=== PATIENT | male | born 1945 | race Hispanic/Latino ===

== ENCOUNTER → 2018-06-01 | Outpatient (CLI) | payer OTHER ==
[~2018-06-01] MED LIST: Z.0.LISINOPRIL40 MG PO; Z.0.NORVASC2.5 MG PO; [UNRECOGNIZED DRUG - OTHER] PO
--- NOTE | 2018-06-01 15:05 | Diagnostic Imaging Report ---
History: Maxillary sinusitis Comparison studies: None Technique: Axial images were obtained through the paranasal sinuses. Coronal and sagittal images reconstructed from the axial data. Radiation dose: Total DLP: 295 mGy*cm. Estimated effective dose: DLP x 0.015 Intravenous contrast: None Findings: Right anterior complex: Frontal sinus: Clear aside from mild mucosal thickening in the anteroinferior sinus. Frontonasal recess: Patent. Anterior ethmoid air cells: Clear. Ostiomeatal unit: Maxillary ostium is narrowed by mucosal thickening but is patent. The ethmoid infundibulum and hiatus semilunaris are likewise patent. Maxillary sinus: Partially opacified with peripheral mucosal thickening, greatest along the alveolar recess. Left anterior complex: Frontal sinus: Clear. Frontonasal recess: Patent. Anterior ethmoid air cells: Mild mucosal thickening otherwise clear. Ostiomeatal unit: Maxillary ostium narrowed by mucosal thickening but patent. The ethmoid infundibulum and hiatus semilunaris are likely patent. Maxillary sinus: Peripheral mucosal thickening predominantly along the alveolar recess. Posterior complex: Left sphenoid sinus: Clear. Right sphenoid sinus: Contains small nonspecific frothy secretions or debris. Clear. Sphenoethmoidal recesses: Clear. Posterior ethmoid air cells: Clear. Other: Nasal vestibule and cavity: Patent Nasal septum: Deviated to the patient's right. Agger Nasi: Clear bilaterally. Turbinates: Non-aerated bilaterally. Leena cells: None Lamina papyracea: Intact. Cribriform plates: Approximate 3 to 4 mm on the right and 4 to 5 mm on the left below the level of the fovea ethmoidalis. Olfactory recesses: Clear Optic canals: Not dehiscent [place] cells: None Internal carotid canals: Not dehiscent. Both carotid canal slightly bulge into the left sphenoid sinus with air covered by thin bony plates. Sphenoid sinuses: Asymmetric with dominant left sinus. The lateral recesses are not aerated. The septum inserts to the right of midline and inserts along the anterior wall the right cavernous carotid canal. Orbits: No abnormalities. Bones: No fractures or lytic or blastic lesions. Temporal bones: No gross abnormalities. Dentition: Edentulous maxilla. Multiple absent mandibular teeth with mandibular dental caries Included brain: Mild generalized cerebral volume loss with nonspecific periventricular hypodensities which may reflect chronic microvascular ischemic changes. Scattered calcified atherosclerosis in the carotid siphons, and dominant right intradural vertebral artery and in the basilar artery with mild vertebrobasilar dolichoectasia. Incidental findings: Lens replacements for previous cataract surgery. Calcified atherosclerosis in the proximal left cervical internal carotid artery. IMPRESSION: 1. Nonspecific inflammatory mucosal thickening in the maxillary sinuses, right inferior frontal sinus and left anterior ethmoids with small nonspecific debris or secretions in the right sphenoid sinus. 2. Sinus drainage pathways are patent. 3. Rightward nasal septal deviation. Signed by: Dr. Justice Rodriguez M.D. on 06/01/2018 3:02 PM
== END ==
LOC: CT 08:47
PROVIDERS: ATTEND Nurse Practitioner Adult Health
DX: J32.0 Chronic maxillary sinusitis (principal); J34.2 Deviated nasal septum
CPT/HCPCS: 70486

== ENCOUNTER 2019-03-21 10:39 | Outpatient (RCR) | payer MEDICARE, OTHER | END 2019-03-26 | LOC: PT 10:39 | PROVIDERS: ATTEND Internal Medicine | DX: I69.898 Other sequelae of other cerebrovascular disease (principal); R26.89 Other abnormalities of gait and mobility ==

== ENCOUNTER 2020-01-18 19:07 | Inpatient (IN) | payer MEDICARE, OTHER ==
[~2020-01-18] VITALS: Ht 170.2 cm; Wt 81.6 kg
[2020-01-18] MEDS ORDERED: SODIUM CHLORIDE 0.9% 1000ML 1,000 ML IV STA (19:09)
[2020-01-18 19:38] LABS: BASOPHILS # (AUTO) 0.1 (0.0-0.1); BASOPHILS % 1.3 % (0.0-1.0); EOSINOPHILS # (AUTO) 0.1 (0.0-0.4); EOSINOPHILS % 2.5 % (0.0-6.0); HEMATOCRIT 35.8 % (38.2-49.6); HEMOGLOBIN 12.5 g/dL (14.0-18.0); LYMPHOCYTES # (AUTO) 1.2 (1.0-3.2); LYMPHOCYTES % 23.2 % (18.0-39.1); MEAN CORPUSCULAR HEMOGLOBIN 30.6 pg (28-32); MEAN CORPUSCULAR HGB CONC 34.9 g/dL (31-35); MEAN CORPUSCULAR VOLUME 87.7 fL (81-99); MONOCYTES # (AUTO) 0.6 (0.2-0.8); MONOCYTES % 11.1 % (4.4-11.3); NEUTROPHILS # (AUTO) 3.2 (2.1-6.9); NEUTROPHILS % 61.7 % (38.7-80.0); PLATELET COUNT 234 x10e3/uL (140-360); RED BLOOD COUNT 4.08 x10e6/uL (4.3-5.7); RED CELL DISTRIBUTION WIDTH 12.1 % (11.7-14.4)
[2020-01-18 19:48] LABS: CLARITY,URINE SL CLOUDY (CLEAR); COLOR,URINE YELLOW (YELLOW)
[2020-01-18 19:49] LABS: BILIRUBIN,URINE NEGATIVE (NEGATIVE); KETONES,URINE NEGATIVE (NEGATIVE); LEUKOCYTE ESTERASE ,URINE NEGATIVE (NEGATIVE); NITRITE,URINE NEGATIVE (NEGATIVE); PROTEIN,URINE DIPSTICK >=300 (NEGATIVE); URINE UROBILINOGEN 0.2 mg/dL (0.2 - 1)
[2020-01-18 19:57] LABS: ALANINE AMINOTRANSFERASE 9 IU/L (0-55); ALBUMIN 4.4 g/dL (3.5-5.0); ALBUMIN/GLOBULIN RATIO 1.5 (0.8-2.0); ALKALINE PHOSPHATASE 68 IU/L (40-150); ANION GAP 12.5 mmol/L (8-16); BLOOD UREA NITROGEN 9 mg/dL (7-26); BUN/CREATININE RATIO 12 (6-25); CALCIUM 8.3 mg/dL (8.4-10.2); CARBON DIOXIDE 22 mmol/L (22-29); CHLORIDE 92 mmol/L (98-107); CREATINE KINASE 270 IU/L (30-200); CREATININE, SERUM 0.73 mg/dL (0.72-1.25); EST GLOMERULAR FILTRATION RATE > 60 ML/MIN (60-); GLUCOSE 102 mg/dL (74-118); POTASSIUM 4.5 mmol/L (3.5-5.1); SODIUM 122 mmol/L (136-145)
[2020-01-18 20:00] LABS: BACTERIA,URINE FEW /HPF; WBC,URINE (MAN) 0-5 /HPF (0-5)
[2020-01-18] MEDS ORDERED: AZITHROMYCIN 500MG/NS 250 ML 250 ML IV SCH (22:00)
[2020-01-18] MEDS ORDERED: HYDRALAZINE HCL 20 MG/ML VIAL IV PRN (22:00)
[2020-01-18 22:20] VITALS: BP 183/90
[2020-01-18] MEDS: SODIUM CHLORIDE 0.9% 1000ML 1,000 ML IV SCH (22:36)
[2020-01-18 23:37] VITALS: BP 183/90
[2020-01-19] VITALS (8 sets, daily range): BP systolic 108–151; BP diastolic 50–79
[2020-01-19] MEDS: SODIUM CHLORIDE 0.9% 1000ML 1,000 ML IV SCH ×3 (04:40→20:44)
[2020-01-19 04:49] LABS: BASOPHILS # (AUTO) 0.1 (0.0-0.1); BASOPHILS % 1.2 % (0.0-1.0); EOSINOPHILS # (AUTO) 0.1 (0.0-0.4); HEMATOCRIT 33.6 % (38.2-49.6); HEMOGLOBIN 11.7 g/dL (14.0-18.0); LYMPHOCYTES # (AUTO) 1.3 (1.0-3.2); LYMPHOCYTES % 24.9 % (18.0-39.1); MEAN CORPUSCULAR HEMOGLOBIN 31.2 pg (28-32); MEAN CORPUSCULAR HGB CONC 34.8 g/dL (31-35); MEAN CORPUSCULAR VOLUME 89.6 fL (81-99); MONOCYTES # (AUTO) 0.7 (0.2-0.8); MONOCYTES % 12.8 % (4.4-11.3); NEUTROPHILS % 58.7 % (38.7-80.0); PLATELET COUNT 212 x10e3/uL (140-360); RED BLOOD COUNT 3.75 x10e6/uL (4.3-5.7); RED CELL DISTRIBUTION WIDTH 12.1 % (11.7-14.4)
[2020-01-19 05:08] LABS: ALANINE AMINOTRANSFERASE 7 IU/L (0-55); ALBUMIN 3.7 g/dL (3.5-5.0); ALBUMIN/GLOBULIN RATIO 1.5 (0.8-2.0); ALKALINE PHOSPHATASE 57 IU/L (40-150); BLOOD UREA NITROGEN 6 mg/dL (7-26); BUN/CREATININE RATIO 10 (6-25); CALCIUM 7.5 mg/dL (8.4-10.2); CARBON DIOXIDE 21 mmol/L (22-29); CHLORIDE 97 mmol/L (98-107); CREATININE, SERUM 0.62 mg/dL (0.72-1.25); EST GLOMERULAR FILTRATION RATE > 60 ML/MIN (60-); GLUCOSE 90 mg/dL (74-118); SODIUM 126 mmol/L (136-145)
[2020-01-19 05:29] LABS: CREATINE KINASE MB 4.7 ng/mL (0-5.0)
[2020-01-19 10:42] LABS: BLOOD UREA NITROGEN 7 mg/dL (7-26); GLUCOSE 86 mg/dL (74-118); OSMOLALITY,SERUM 251 mOsm/kg (278-305); SODIUM 126 mmol/L (136-145)
[2020-01-19] MEDS: CEFTRIAXONE SOD 1 GM/NS 50 ML 50 ML IV SCH (12:43)
[2020-01-19] MEDS: LISINOPRIL 20 MG TAB PO SCH ×2 (12:44→20:44)
[2020-01-19] MEDS: AMLODIPINE BESYLATE 5 MG TAB PO SCH (12:44)
[2020-01-19 13:03] LABS: CREATINE KINASE MB 4.1 ng/mL (0-5.0)
[2020-01-19] MEDS: AZITHROMYCIN 250MG/NS 100 ML 100 ML IV SCH (20:44)
[2020-01-20] VITALS (8 sets, daily range): BP systolic 116–178; BP diastolic 58–84
[2020-01-20 04:50] LABS: BASOPHILS # (AUTO) 0.1 (0.0-0.1); BASOPHILS % 1.5 % (0.0-1.0); EOSINOPHILS # (AUTO) 0.2 (0.0-0.4); HEMATOCRIT 33.9 % (38.2-49.6); HEMOGLOBIN 11.7 g/dL (14.0-18.0); LYMPHOCYTES # (AUTO) 1.3 (1.0-3.2); LYMPHOCYTES % 26.5 % (18.0-39.1); MEAN CORPUSCULAR HEMOGLOBIN 31.7 pg (28-32); MEAN CORPUSCULAR HGB CONC 34.5 g/dL (31-35); MEAN CORPUSCULAR VOLUME 91.9 fL (81-99); MONOCYTES # (AUTO) 0.6 (0.2-0.8); MONOCYTES % 13.4 % (4.4-11.3); NEUTROPHILS # (AUTO) 2.6 (2.1-6.9); NEUTROPHILS % 54.2 % (38.7-80.0); PLATELET COUNT 205 x10e3/uL (140-360); RED BLOOD COUNT 3.69 x10e6/uL (4.3-5.7); RED CELL DISTRIBUTION WIDTH 12.7 % (11.7-14.4)
[2020-01-20 05:17] LABS: ANION GAP 13.1 mmol/L (8-16); BLOOD UREA NITROGEN 6 mg/dL (7-26); BUN/CREATININE RATIO 9 (6-25); CALCIUM 7.7 mg/dL (8.4-10.2); CARBON DIOXIDE 21 mmol/L (22-29); CHLORIDE 104 mmol/L (98-107); CREATININE, SERUM 0.65 mg/dL (0.72-1.25); EST GLOMERULAR FILTRATION RATE > 60 ML/MIN (60-); GLUCOSE 81 mg/dL (74-118); POTASSIUM 4.1 mmol/L (3.5-5.1); SODIUM 134 mmol/L (136-145)
[2020-01-20] MEDS: AMLODIPINE BESYLATE 5 MG TAB PO SCH (08:43)
[2020-01-20] MEDS: LISINOPRIL 20 MG TAB PO SCH ×2 (08:43→20:31)
[2020-01-20] MEDS ORDERED: ALBUTEROL/IPRATROPIUM 3 ML NEB NEB PRN (10:00)
[2020-01-20] MEDS: CEFTRIAXONE SOD 1 GM/NS 50 ML 50 ML IV SCH (11:03)
[2020-01-20] MEDS: METHYLPREDNISOLONE SOD SUCC 40 MG/ML VIAL 1ML IV SCH ×2 (11:03→20:30)
[2020-01-20] MEDS: ALBUTEROL/IPRATROPIUM 3 ML NEB NEB SCH ×2 (13:30→20:25)
[2020-01-20 16:34] LABS: FREE THYROXINE INDEX 1.7866 (1.4-3.8); THYROID STIMULATING HORMONE 0.399 uIU/mL (0.350-4.940)
[2020-01-20] MEDS: SODIUM CHLORIDE 0.9% 1000ML 1,000 ML IV SCH (17:00)
[2020-01-20] MEDS: AZITHROMYCIN 250MG/NS 100 ML 100 ML IV SCH (20:30)
[2020-01-21] VITALS (8 sets, daily range): BP systolic 147–182; BP diastolic 63–82
[2020-01-21] MEDS: ALBUTEROL/IPRATROPIUM 3 ML NEB NEB SCH ×4 (01:20→18:57)
[2020-01-21] MEDS: LISINOPRIL 20 MG TAB PO SCH ×2 (08:05→20:52)
[2020-01-21] MEDS: AMLODIPINE BESYLATE 5 MG TAB PO SCH (08:05)
[2020-01-21] MEDS: SODIUM CHLORIDE 0.9% 1000ML 1,000 ML IV SCH (08:05)
[2020-01-21] MEDS: METHYLPREDNISOLONE SOD SUCC 40 MG/ML VIAL 1ML IV SCH ×2 (08:05→20:52)
[2020-01-21] MEDS: CEFTRIAXONE SOD 1 GM/NS 50 ML 50 ML IV SCH (12:15)
[2020-01-21] MEDS ORDERED: NIFEDIPINE CR 30 MG TAB PO ONE (12:30)
[2020-01-21] MEDS: ACETAMINOPHEN 325 MG TAB PO PRN (18:36)
[2020-01-21] MEDS: AZITHROMYCIN 250MG/NS 100 ML 100 ML IV SCH (20:51)
[2020-01-22] VITALS (8 sets, daily range): BP systolic 126–161; BP diastolic 58–77
[2020-01-22] MEDS: ALBUTEROL/IPRATROPIUM 3 ML NEB NEB SCH ×4 (01:00→18:45)
[2020-01-22 05:57] LABS: BASOPHILS % 0.4 % (0.0-1.0); HEMATOCRIT 35.9 % (38.2-49.6); HEMOGLOBIN 12.7 g/dL (14.0-18.0); LYMPHOCYTES # (AUTO) 0.6 (1.0-3.2); LYMPHOCYTES % 12.6 % (18.0-39.1); MEAN CORPUSCULAR HEMOGLOBIN 32.6 pg (28-32); MEAN CORPUSCULAR HGB CONC 35.4 g/dL (31-35); MEAN CORPUSCULAR VOLUME 92.3 fL (81-99); MONOCYTES # (AUTO) 0.2 (0.2-0.8); MONOCYTES % 3.5 % (4.4-11.3); NEUTROPHILS % 83.3 % (38.7-80.0); PLATELET COUNT 230 x10e3/uL (140-360); RED BLOOD COUNT 3.89 x10e6/uL (4.3-5.7); RED CELL DISTRIBUTION WIDTH 12.8 % (11.7-14.4)
[2020-01-22] MEDS: NIFEDIPINE CR 30 MG TAB PO SCH ×3 (06:00→09:17)
[2020-01-22 06:28] LABS: ANION GAP 11.5 mmol/L (8-16); BLOOD UREA NITROGEN 9 mg/dL (7-26); BUN/CREATININE RATIO 13 (6-25); CALCIUM 8.9 mg/dL (8.4-10.2); CARBON DIOXIDE 26 mmol/L (22-29); CHLORIDE 101 mmol/L (98-107); CREATININE, SERUM 0.69 mg/dL (0.72-1.25); EST GLOMERULAR FILTRATION RATE > 60 ML/MIN (60-); GLUCOSE 121 mg/dL (74-118); POTASSIUM 4.5 mmol/L (3.5-5.1); SODIUM 134 mmol/L (136-145)
[2020-01-22] MEDS: METHYLPREDNISOLONE SOD SUCC 40 MG/ML VIAL 1ML IV SCH (09:18)
[2020-01-22] MEDS: LISINOPRIL 20 MG TAB PO SCH ×2 (10:40→20:01)
[2020-01-22] MEDS: CEFTRIAXONE SOD 1 GM/NS 50 ML 50 ML IV SCH (10:47)
[2020-01-22] MEDS: ACETAMINOPHEN 325 MG TAB PO PRN (18:03)
[2020-01-22] MEDS: AZITHROMYCIN 250MG/NS 100 ML 100 ML IV SCH (19:57)
[2020-01-23 00:09] VITALS: BP 155/70
[2020-01-23] MEDS: ALBUTEROL/IPRATROPIUM 3 ML NEB NEB SCH ×2 (01:00→08:50)
[2020-01-23 04:10] VITALS: BP 154/72
[2020-01-23 05:37] LABS: ANION GAP 11.7 mmol/L (8-16); BLOOD UREA NITROGEN 11 mg/dL (7-26); BUN/CREATININE RATIO 16 (6-25); CALCIUM 8.8 mg/dL (8.4-10.2); CARBON DIOXIDE 26 mmol/L (22-29); CHLORIDE 98 mmol/L (98-107); EST GLOMERULAR FILTRATION RATE > 60 ML/MIN (60-); GLUCOSE 92 mg/dL (74-118); POTASSIUM 3.7 mmol/L (3.5-5.1); SODIUM 132 mmol/L (136-145)
[2020-01-23 08:00] VITALS: BP 158/93
[2020-01-23] MEDS: LISINOPRIL 20 MG TAB PO SCH (08:17)
[2020-01-23] MEDS: NIFEDIPINE CR 30 MG TAB PO SCH (08:18)
[2020-01-23 09:00] VITALS: BP 158/93
[2020-01-23] MEDS ORDERED: DEMECLOCYCLINE HCL 300 MG TAB PO SCH (09:00)
[2020-02-17] MEDS ORDERED: NIFEDIPINE ER30 M1 PO (17:02)
[2020-02-17] MEDS ORDERED: RISPERDAL0.5 MG PO (17:02)
[2020-02-17] MEDS ORDERED: LOPRESSOR25 MG PO (17:02)
[2020-02-17] MEDS ORDERED: COLACE100 MG PO (17:02)
[2020-02-17] MEDS ORDERED: ACETAMINOPHEN325 M1 PO (17:02)
[2020-02-17] MEDS ORDERED: Demeclocycline Hcl PO (17:02)
[2020-02-17] MEDS ORDERED: FLOMAX0.4 MG PO (17:02)
== END 2020-01-23 10:55 | disposition home health service (06) | DRG 643 ==
LOC: ER 19:41 → ERHOLD 20:45 → IMCU 22:00
PROVIDERS: ADMIT Internal Medicine; ATTEND Internal Medicine
DX: E22.2 Syndrome of inappropriate secretion of antidiuretic hormone (principal); J18.9 Pneumonia, unspecified organism; I10 Essential (primary) hypertension; S06.0X0A Concussion without loss of consciousness, initial encounter; M25.531 Pain in right wrist; M25.562 Pain in left knee; M25.561 Pain in right knee; W01.0XXA Fall on same level from slipping, tripping and stumbling without subsequent striking against object, initial encounter; Y93.01 Activity, walking, marching and hiking; S00.81XA Abrasion of other part of head, initial encounter; S00.83XA Contusion of other part of head, initial encounter; F01.50 Vascular dementia, unspecified severity, without behavioral disturbance, psychotic disturbance, mood disturbance, and anxiety; J84.10 Pulmonary fibrosis, unspecified
CPT/HCPCS: 36415; 70450; 70486; 71046; 71250; 72125; 80048; 80053; 80320; 81001; 82550; 82553; 82607; 82746; 82947; 83880; 83935; 84295; 84300; 84436; 84443; 84479; 84484; 84520; 85025; 86001; 86003; 86039; 86592; 93005; 94640; 97139; 99285; J0360; J0456; J0696; J2920; J7030; U0002

== ENCOUNTER 2020-02-11 20:37 | Inpatient (IN) | payer MEDICARE, OTHER ==
[~2020-02-11] VITALS: Ht 170.2 cm; Wt 71.7 kg
--- OUTSIDE RECORDS SUMMARY | 2020-02-11 20:59 | XMS REPORT | Continuity of Care Document ---
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 01/27/2019 [facility] UNK Active 0 01/06/2013 [facility] OTHER Active 05/24/2011 [facility] Hearing loss (finding) [facility], systemic arterial (disorder) [facility] Medications Medication Details Route Status Patient Instructions Ordering Provider Order Date Source Naprosyn 500 mg oral tablet 50 0 mg, 1 tab, PO, BID, 14 tab, Substitution Allowed, TAB PO Active Wilfred howe 05/24/2011 [facility] acetaminophen-hydrocodone 500 mg-5 mg oral tablet 1-2 tab, PO, Q4-6H, PRN, 15 tab, Pain, Substitution Allowed, [facility] Toradol 30 mg/mL injectable solution 60 mg, 2 mL, Route: IM, Drug form: INJ, ONCE, Start date: 05/24/11 8:34:00, Stop date: 05/24/11 8:34:00 IM No [facility] acetaminophen-hydrocodone 325 mg-5 mg oral tablet 1 tab, Route: PO, Drug Form: TAB, ONCE, STAT, Start date: 05/24/11 8:34:00, Stop date: 05/24/11 8:34:00 PO [facility] Allergies, Adverse Reactions, Alerts Substance Category Reaction Severity Reaction type Status Date Reported Comments Source No Known Medication Allergies Assertion Drug aller gy [facility] Immunizations No Data Provided for This Section Results No Data Provided for This Section Pathology Reports No Data Provided for This Section Diagnostic Reports Report Value Date Source Sinus wo contrast CT Radiation Dose CTDIVOL = 0 (mGy): DLP = 504 (mGy-cm) PROCEDURE INFORMATION: Exam: CT Maxillofacial Without Contrast, Sinus Exam date and time: 11/10/2019 2:48 PM Age: 74 years old Clinical indication: /j32.4 sinus problems TECHNIQUE: Imaging protocol: CT Maxillofacial without contrast. Focus on the sinuses. Radiation optimization: All CT scans at this facility use at least one of these dose optimization techniques: automated exposure control; mA and/or kV adjustment per patient size (includes targeted exams where dose is matched to clinical indication); or iterative reconstruction. COMPARISON: No relevant prior studies available. RADIATION DOSE METRICS: Total DLP (mGy-cm): 504 FINDINGS: Frontal sinuses: There is minimal mucosal thickening right frontal sinus. Ethmoid air cells: There is minimal mucosal thickening in the solitary right mid ethmoid air cell and within the right frontal sinus. Sphenoid sinuses: Normal. No air-fluid levels. Maxillary sinuses: There is minimal attenuation bilateral maxillary ostium. Orbits: Orbits are normal. Globes are unremarkable. Auditory system: There is normal pneumatization middle ear cavity, antrum and mastoid air cells. Nasopharynx: The nasopharynx is normal. Nasal cavity/Septum: The nasal septum is deviated to the right. There is prominence of the mucosa of the middle and inferior nasal turbinates without nasal polyposis. Soft tissues: Unremarkable. Bones/joints: The study is is performed in a bone algorithm. IMPRESSION: There is minimal mucosal thickening in the right frontal sinus in the solitary right mid ethmoid air cell. The nasal septum is deviated to the right. There is prominence of the mucosa of the middle and inferior nasal turbinates without nasal polyposis. Kvng Hall MD On 11/10/2019 17:12:51; [id number] 11/10/2019 [facility] Spine lumbar 2 or 3 views DX E xam: Spine lumbar 2 or 3 views DX Reason for Exam: - M47.816 Spondylosis without myelopathy or radiculopathy, lumbar region Comparison Exam: None Discussion: 5 non rib-bearing lumbar vertebral taryn s are seen. Vertebral body heights are maintained. Grade 1 retrolisthesis seen of L2 on L3. Moderate degenerative changes seen at the L2/L3 and L5/S1 levels. No suspicious osteoblastic or osteolytic lesions. Large amount of atherosclerotic plaque seen within the abdominal aorta . Note that a lumbar spine x-ray cannot rule out ligamentous injuries or spinal cord abnormalities. No dilated loops of bowel within the visualized portions of the abdomen and pelvis. Impression: 1. Grade 1 retrolisthesis seen of L2 on L3. Moderate degenerative changes seen at the L2/L3 and L5/S1 levels. 01/27/2019 [facility] Consultation Notes No Data Provided for This Section Discharge Summaries No Data Provided for This Section History and Physicals No Data Provided for This Section Vital Signs Vital Sign Value Date Comments Source Heart Rate 89 05/24/2011 [facility] Temperature Oral (F) 98.3 F 05/24/2011 [facility] Respitory Rate 20 05/24/2011 [facility] Diastolic (mm Hg) 70 05/24/2011 [facility] Systolic (mm Hg) 136 05/24/2011 [facility] Heart Rate 88 05/24/2011 [facility] Diastolic (mm Hg) 71 05/24/2011 [facility] Temperature Oral (F) 98.1 F 05/24/2011 [facility] Respitory Rate 18 05/24/2011 [facility] Systolic (mm Hg) 138 05/24/2011 [facility] Weight 81.818 05/24/2011 [facility] Height 170.18 cm 05/24/2011 [facility] Encounters Location Location Details Encounter Type Encounter Number Reason For Visit Attending Provider ADM Date DC Date Status Source [facility] Emergency [id number] JASMINA NRIAGU 05/24/2011 05/24/2011 [facility]charged [facility] [place] [facility] [id number] Jason Parikh [id number] Rolando Leiva 11/10/2019 11/11/2019 [facility] LUIS [id number] BECKIEK TERENCE HALE Active [facility] Procedures Procedure Code Date Perfomer Comments [id number] No Data Provided for This Section Plan of Care No Data Provided for This Section Social History Social History Date Source Social History TypeResponse Alcohol Past, Previous treatment: None. Alcohol use interferes with work or home: No. Drinks more than intended: No. Others hurt by drinking: No. Ready to change: No. Household alcohol concerns: No. Substance Abuse Previous Treatment: None. IV drug use: No. Drug use interferes with work/home: No. Ready to change: No. Household substance abuse concerns: No. Cessation Education Provided: No. Smoking Status Former smoker; Exposure to Tobacco Smoke None; Cigarette Smoking Last 365 Days No; Reg Smoking Cessation Counseling No entered on: 04/04/13 04/04/2013 [facility] Social History TypeResponse Alcohol Past, Previous treatment: None. Alcohol use interferes with work or home: No. Drinks more than intended: No. Others hurt by drinking: No. Ready to change: No. Household alcohol concerns: No. Substance Abuse Previous Treatment: None. IV drug use: No. Drug use interferes with work/home: No. Ready to change: No. Household substance abuse concerns: No. Cessation Education Provided: No. Smoking Status Former smoker; Exposure to Tobacco Smoke None; Cigarette Smoking Last 365 Days No; Reg Smoking Cessation Counseling No entered on: 04/04/13 04/04/2013 [facility] Family History No Data Provided for This Section Advance Directives No Data Provided for This Section Functional Status No Data Provided for This Section
--- OUTSIDE RECORDS SUMMARY | 2020-02-11 20:59 | XMS REPORT | Continuity of Care Document ---
Author Author [facility] t Organization [facility] Address 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 Active 11/07/2019 [facility] tive 2019-11-07 00:00:00 2019-11-10 14:38:00 Deandra Pineda 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 Active 01/27/2019 [facility] Active 2019-01-27 00:01:00 2019-01-27 10:28:00 Warner Pineda UNK UNK Active 01/06/2013 [facility] Diagnosis Active 2013-01-06 00:00:00 2013-04-04 09:03:00 M kandijuanbrandin Edwin OTHER OTHE R Active 05/24/2011 [facility] Active 2011-05-24 00:00:00 2011-05-24 09:01:00 [facility] Facial laceration Problem Active [facility] Hyponatremia Problem Active [facility] Weakness Problem Active [facility] Pain in both knees Problem Active [facility] Right wrist pain Problem Active [facility] Hearing loss (finding) Hear ing loss (finding) Active Problem 11/12/2019 [facility] 2019-11-12 22:48:33 Warner Pineda Hypertensive disorder, systemic arterial (disorder) Hypertensive disorder, systemic arterial (disorder) Active [facility]12[facility]2019 [facility] 2019-11-12 22:48:33 Warner Pineda Allergies, Adverse Reactions, Alerts Allergy Name Allergy Type Status Severity Reaction(s) Onset Date Inacti ve Date Treating Clinician Comments Source No Known Allergies DA Active U 2020-01-30 00:00:00 [facility] No Known Allergies DA Active U 2019-06-06 00:00:00 [facility] No Known Allergies DA Active U 2015-02-26 00:00:00 [facility] No Known Medication Allergies No Known Medication Allergies Active Warner Pineda Social History Social Habit Start Date Stop Date Quantity Comments Source Social History 2013-04-04 15:43:17 2013-04-04 15:43:17 Warner Pineda Sex Ass[birth year] At 1945 00:00:00 1945 00[birth year]00:00 Male [facility] Medications Ordered Medication Name Filled Medication Name Start Date Stop Da te Current Medication? Ordering Clinician Indication Dosage Frequency Signature (SIG) Comments Components Source Naprosyn 500 mg oral tablet 2011-05-24 14:37:17 Yes Becki Dumaszik 500 mg, 1 tab, PO, BID, 14 tab, Substitution Allowed, TAB Warner Pineda acetaminophen-hydrocodone 500 mg-5 mg oral tablet 14:37:16 Yes Becki Dumasbrandenk 1-2 tab, PO , Q4-6H, PRN, 15 tab, Pain, Substitution Allowed, Maintenance Warner Pineda Toradol 30 mg/mL injectable solution 2011-05-24 14:34:00 No Becki Dumasbrandenmelissa 60 mg, 2 mL, Rou te: IM, Drug form: INJ, ONCE, Start date: 05/24/11 8:34:00, Stop date: 05/24/11 8:34:00 Duran Pineda acetaminophen-hydrocodone 325 mg-5 mg oral tablet 14:34:00 No Becki Dumasgita 1 tab, Rout e: PO, Drug Form: TAB, ONCE, STAT, Start date: 05/24/11 8:34:00, Stop date: 05/24/11 8:34:00 [facility] Lisin[facility]ril Lisinopril Yes 1 Daily [facility] Amlodipine Besylate (Norvasc) 2.5 Mg TABLET Amlodipine Besylate (Norvasc) 2.5 Mg TABLET 2020-01-23 00:00:00 No 1 Daily [facility] Cefprozil Cefprozil 2020-01-23 00:00:00 No 1 Twice Daily [facility] Vital Signs Vital Name Observation Time Observation Value Comments Source Body Temperature 2020-01-23 09:00:00 98.1 [degF] [facility] Weight 2020-01-18 19:25:00 180 [lb_av] [facility] BMI (Body Mass Index) 2020-01-18 19:25:00 28.2 kg/m2 [facility] Heart Rate 2011-05-24 15:28:00 Warner Pineda Temperature Oral (F) 2011-05-24 15:28:00 98.3 F Warner Pineda Respitory Rate 2011-05-24 15:28:00 [facility] Diastolic (mm Hg) 2011-05-24 15:28:00 Mem [facility] [place] Systolic (mm Hg) 2011-05-24 15:28:00 Kyle rial [facility] Heart Rate 2011-05-24 14:17:00 [facility] [place] Diastolic (mm Hg) 2011-05-24 14:17:00 Mem o[facility] Temperature Oral (F) 2011-05-24 14:17:00 98.1 F [facility] Respitory Rate 2011-05-24 14:17:00 [facility] Systolic (mm Hg) 2011-05-24 14:17:00 Kyle [facility] Weight 2011-05-24 14:16:00 [facility] Height 2011-05-24 14:16:00 170.18 cm [facility] Procedures Procedure Date / Time Performed Performing Clinician [facility] e Computed tomography of brain without radiopaque contrast 2019-12 00:00:00 [facility] Computed tomography of chest without contrast 2020-01-19 00:00:0 0 [facility] Computed tomography of brain without radiopaque contrast 2019-12 00:00:00 [facility] CT maxillofacial area wo contrast 2020-01-18 00:00:00 [facility] Computed tomography of cervical spine without contrast 2019-12-28 3 00:00:00 [facility] X-ray of chest, two views 2020-01-18 00:00:00 [facility] Cataract surgery [facility] Plan of Care Planned Activity Planned Date Details Comments Source Instructions Pneumonia - Bacterial [facility] Encounters Start Date/Time End Date/Time Encounter Type Admission Type [facility] Care Department Encounter ID Source 2019-11-10 14:28:00 2019-11-10 23:59:00 Outpatient Rolando Leiva [facility] [id number] 2019-11-10 14:28:00 2019-11-10 14:28:00 Outpatient [id number] 2019-03-21 10:39:00 2019-03-26 23:59:00 Discharged Recurring [facility] [id number] [facility] 2019-01-27 10:09:00 2019-01-27 23:59:00 Outpatient Jason Parikh [facility] [id number] 2018-06-01 08:47:00 2018-06-01 08:47:00 Registered Clinic 3 ARIELLE TYLER [facility] [id number] [facility] Results Test Description Test Time Test Comments Results Result Comments Source HEPATIC FUNCTION PANEL 2020-02-05 02:06:00 Test Item TOTAL PROTEIN (test code = PROT) 6.7 gram/dL 6.4-8.2 N ALBUMIN (test code = ALB) 3.6 g/dL 3.4-5.0 N GLOBULIN (test code = GLOB) 3.1 gram/dL 2.7-4.2 N ALBUMIN/GLOBULIN RATIO (test code = A/G) 1.2 0.75-1.50 N BILIRUBIN TOTAL (test code = BILT) 0.40 mg/dL 0.0-1.0 N BILIRUBIN DIRECT (test code = BILD) 0.11 mg/dL 0.0-0.20 N SGOT/AST (test code = AST) 20 IUnit/L 15-37 N SGPT/ALT (test code = ALT) 17 IUnit/L 12-78 N ALKALINE PHOSPHATASE TOTAL (test code = ALKP) 61 IUnit/L 45-117 N Note change in reference range due to change in reagent. VITAMIN [id number] 02:06:00* Test Item Value Reference Range Interpretation Comments VITAMIN B12 (test code = VITB12) 546 pg/mL 193-986 N FOLIC [id number] 02:06:00* Test Item Value Reference Range Interpretation Comments FOLIC ACID (test code = FOL) 17.7 ng/mL 3.10-17.50 H THYROID STIMULATING [id number] 02:06:00* Test Item Value Reference Range Interpretation Comments THYROID STIMULATING HORMONE (test code = TSH) 0.362 uIU/mL 0.36-3.7 4 N TSH REFERENCE RANGES: EUTHYROID: 0.35 - 4.3 mIU/mL HYPO : > 5.5 mIU/mL HYPER : < 0.35 mIU/mL VITAMIN B6/[id number] 02:06:00* Test Item Value Reference Range Interpretation Comments VITAMIN B6/PYRIDOXINE (test code = VITB6) 11.3 ug/L 5.3-46.7 Performed At: [facility] [id number] Santizo MD Ph:[phone] VIT B1 WHOLE [id number] 02:06:00* Test Item Value Reference Range Interpretation Comments VIT B1 WHOLE BLOOD (test code = OVUT3XJ) 74.5 nmol/L 66.5-200.0 Performed At: [facility] [id number] Santizo MD Ph:[phone] HEPATIC FUNCTION [id number] 21:06:00* Test Item Value Reference Range Interpretation Comments TOTAL PROTEIN (test code = PROT) 6.7 gram/dL 6.4-8.2 N ALBUMIN (test code = ALB) 3.6 g/dL 3.4-5.0 N GLOBULIN (test code = GLOB) 3.1 gram/dL 2.7-4.2 N ALBUMIN/GLOBULIN RATIO (test code = A/G) 1.2 0.75-1.50 N BILIRUBIN TOTAL (test code = BILT) 0.40 mg/dL 0.0-1.0 N BILIRUBIN DIRECT (test code = BILD) 0.11 mg/dL 0.0-0.20 N SGOT/AST (test code = AST) 20 IUnit/L 15-37 N SGPT/ALT (test code = ALT) 17 IUnit/L 12-78 N ALKALINE PHOSPHATASE TOTAL (test code = ALKP) 61 IUnit/L 45-117 N Note change in reference range due to change in reagent. VITAMIN [id number] 21:06:00* Test Item Value Reference Range Interpretation Comments VITAMIN B12 (test code = VITB12) 546 pg/mL 193-986 N FOLIC [id number] 21:06:00* Test Item Value Reference Range Interpretation Comments FOLIC ACID (test code = FOL) 17.7 ng/mL 3.10-17.50 H THYROID STIMULATING [id number] 21:06:00* Test Item Value Reference Range Interpretation Comments THYROID STIMULATING HORMONE (test code = TSH) 0.362 uIU/mL 0.36-3.7 4 N TSH REFERENCE RANGES: EUTHYROID: 0.35 - 4.3 mIU/mL HYPO : > 5.5 mIU/mL HYPER : < 0.35 mIU/mL VITAMIN B6/[id number] 21:06:00* Test Item Value Reference Range Interpretation Comments VITAMIN B6/PYRIDOXINE (test code = VITB6) 11.3 ug/L 5.3-46.7 Performed At: [facility] [id number] Sanjai MD Ph:[phone] VIT B1 WHOLE [id number] 21:06:00* Test Item Value Reference Range Interpretation Comments VIT B1 WHOLE BLOOD (test code = UHAN5QI) nmol/L 87-280 BASIC METABOLIC [id number] 07:38:00* Test Item Value Reference Range Interpretation Comments SODIUM (test code = NA) 136 mmol/L 136-145 N POTASSIUM (test code = K) 4.3 mmol/L 3.5-5.1 N CHLORIDE (test code = CL) 104.0 mmol/L 98-107 N CARBON DIOXIDE (test code = CO2) 25.0 mmol/L 21-32 N ANION GAP (test code = GAP) 11.3 10-20 N GLUCOSE (test code = GLU) 91 mg/dL 74-106 N BLOOD UREA NITROGEN (test code = BUN) 8 mg/dL 7-18 N GLOMERULAR FILTRATION RATE (test code = GFR) > 60 mL/min >=60 Estimated GFR by using Modified MDRD formula.Chronic kidney disease is defined as either kidney damageor GFR <60 mL/min/1.73 m2 for >3 months. CREATININE (test code = CREAT) 0.50 mg/dL 0.7-1.3 L BUN/CREATININE RATIO (test code = BUN/CREA) 15.0 10-20 N CALCIUM (test code = CA) 8.2 mg/dL 8.5-10.1 L BASIC METABOLIC [id number] 12:20:00* Test Item Value Reference Range Interpretation Comments SODIUM (test code = NA) 135 mmol/L 136-145 L POTASSIUM (test code = K) 3.8 mmol/L 3.5-5.1 N CHLORIDE (test code = CL) 102.0 mmol/L 98-107 N CARBON DIOXIDE (test code = CO2) 28.0 mmol/L 21-32 N Previously reported result: 28.0 mmol/LEdited by: JESSE on 02/02/20:1220 ANION GAP (test code = GAP) 8.8 10-20 L GLUCOSE (test code = GLU) 105 mg/dL 74-106 N BLOOD UREA NITROGEN (test code = BUN) 6 mg/dL 7-18 L GLOMERULAR FILTRATION RATE (test code = GFR) > 60 mL/min >=60 Estimated GFR by using Modified MDRD formula.Chronic kidney disease is defined as either kidney damageor GFR <60 mL/min/1.73 m2 for >3 months. CREATININE (test code = CREAT) 0.70 mg/dL 0.7-1.3 N BUN/CREATININE RATIO (test code = BUN/CREA) 8.6 10-20 L CALCIUM (test code = CA) 8.7 mg/dL 8.5-10.1 N BASIC METABOLIC [id number] 11:57:00* Test Item Value Reference Range Interpretation Comments SODIUM (test code = NA) 135 mmol/L 136-145 L POTASSIUM (test code = K) 3.8 mmol/L 3.5-5.1 N CHLORIDE (test code = CL) 102.0 mmol/L 98-107 N CARBON DIOXIDE (test code = CO2) mmol/L 21-32 ANION GAP (test code = GAP) 10-20 GLUCOSE (test code = GLU) mg/dL 74-106 BLOOD UREA NITROGEN (test code = BUN) mg/dL 7-18 GLOMERULAR FILTRATION RATE (test code = GFR) mL/min >=60 CREATININE (test code = CREAT) mg/dL 0.7-1.3 BUN/CREATININE RATIO (test code = BUN/CREA) 10-20 CALCIUM (test code = CA) mg/dL 8.5-10.1 BASIC METABOLIC [id number] 11:57:00* Test Item Value Reference Range Interpretation Comments SODIUM (test code = NA) 135 mmol/L 136-145 L POTASSIUM (test code = K) 3.8 mmol/L 3.5-5.1 N CHLORIDE (test code = CL) 102.0 mmol/L 98-107 N CARBON DIOXIDE (test code = CO2) 28.0 mmol/L 21-32 N ANION GAP (test code = GAP) 10-20 GLUCOSE (test code = GLU) 105 mg/dL 74-106 N BLOOD UREA NITROGEN (test code = BUN) 6 mg/dL 7-18 L GLOMERULAR FILTRATION RATE (test code = GFR) > 60 mL/min >=60 Estimated GFR by using Modified MDRD formula.Chronic kidney disease is defined as either kidney damageor GFR <60 mL/min/1.73 m2 for >3 months. CREATININE (test code = CREAT) 0.70 mg/dL 0.7-1.3 N BUN/CREATININE RATIO (test code = BUN/CREA) 8.6 10-20 L CALCIUM (test code = CA) 8.7 mg/dL 8.5-10.1 N CBC W/AUTO [id number] 11:45:00* Test Item Value Reference Range Interpretation Comments WHITE BLOOD CELL (test code = WBC) 5.0 K/mm3 4.5-12.5 N RED BLOOD CELL (test code = RBC) 4.03 mill/mm3 4.0-5.8 N HEMOGLOBIN (test code = HGB) 12.8 gram/dL 13.0-17.5 L HEMATOCRIT (test code = HCT) 37.9 % 42.0-52.0 L MEAN CELL VOLUME (test code = MCV) 94.0 fL 80-98 N MEAN CELL HGB (test code = MCH) 31.8 picogram 27.0-33.0 N MEAN CELL HGB CONCETRATION (test code = MCHC) 33.8 gram/dL 33.0-36. 0 N RED CELL DISTRIBUTION WIDTH (test code = RDW) 12.9 % 11.6-16. 2 N RED CELL DISTRIBUTION WIDTH SD (test code = RDW-SD) 44.6 fL 37 .0-51.0 N PLATELET COUNT (test code = PLT) 243 K/mm3 150-450 N MEAN PLATELET VOLUME (test code = MPV) 9.5 fL 6.7-11.0 N NEUTROPHIL % (test code = NT%) 69.6 % 39.0-69.0 H IMMATURE GRANULOCYTE % (test code = IG%) 0.2 % 0.0-5.0 N LYMPHOCYTE % (test code = LY%) 15.3 % 25.0-55.0 L MONOCYTE % (test code = MO%) 10.7 % 0.0-10.0 H EOSINOPHIL % (test code = EO%) 2.8 % 0.0-5.0 N BASOPHIL % (test code = BA%) 1.4 % 0.0-1.0 H NUCLEATED RBC % (test code = NRBC%) 0.0 % 0-0 N NEUTROPHIL # (test code = NT#) 3.46 K/mm3 1.8-7.7 N IMMATURE GRANULOCYTE # (test code = IG#) 0.01 x10 3/uL 0-0.03 N LYMPHOCYTE # (test code = LY#) 0.76 K/mm3 1.0-5.0 L MONOCYTE # (test code = MO#) 0.53 K/mm3 0-0.8 N EOSINOPHIL # (test code = EO#) 0.14 K/mm3 0.0-0.5 N BASOPHIL # (test code = BA#) 0.07 K/mm3 0.0-0.2 N NUCLEATED RBC # (test code = NRBC#) 0.00 K/mm3 0.0-0.1 N MANUAL DIFF REQUIRED (test code = MDIFF) NO BASIC METABOLIC [id number] 11:30:00* Test Item Value Reference Range Interpretation Comments SODIUM (test code = NA) 133 mmol/L 136-145 L POTASSIUM (test code = K) 4.4 mmol/L 3.5-5.1 N CHLORIDE (test code = CL) 101.0 mmol/L 98-107 N CARBON DIOXIDE (test code = CO2) 25.0 mmol/L 21-32 N ANION GAP (test code = GAP) 11.4 10-20 N GLUCOSE (test code = GLU) 101 mg/dL 74-106 N BLOOD UREA NITROGEN (test code = BUN) 6 mg/dL 7-18 L GLOMERULAR FILTRATION RATE (test code = GFR) > 60 mL/min >=60 Estimated GFR by using Modified MDRD formula.Chronic kidney disease is defined as either kidney damageor GFR <60 mL/min/1.73 m2 for >3 months. 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 The diffusion scans show no areas of restricted diffusion. Extensi ve gliosis is seen involving the periventricular and deep white matter, be st demonstrated on the FLAIR study. Otherwise, unremarkable zhao/white mat ter differentiation. The gradient echo study shows no evidence of intra or extra-axial hemorrhage. No mass lesions or midline shift. Exp ected flow-voids are seen within vascular structures. Symmetric dilatation of the ventricle; sulci and basilar cisterns are intact. IMPRESSION: 1. No evidence of intracranial hemorrhage or acute ischemic lesions. 2. Extensive chronic ischemic white matter changes. 3. Moderate atrophy. Location code: [facility] Elec tronically Signed by John Cristobal on 020 at 1943 Reported and signed by: Corby Cristobal M.D. CC: Kvng Garcia MD; Roxie Silva NP Technologist: NICOLÁS MORELRT - MRI [facility] crd Date/Time/By: 01/31/2020 (1942) : By: Sanjeev Orig Print D/T: S: 01/31/2020 (1945) PAGE 1 Signed Report BASIC METABOLIC [id number] 08:26:00* Test Item Value Reference Range Interpretation Comments SODIUM (test code = NA) 126 mmol/L 136-145 L POTASSIUM (test code = K) 3.9 mmol/L 3.5-5.1 N CHLORIDE (test code = CL) 94.0 mmol/L 98-107 L CARBON DIOXIDE (test code = CO2) 26.0 mmol/L 21-32 N ANION GAP (test code = GAP) 9.9 10-20 L GLUCOSE (test code = GLU) 87 mg/dL 74-106 N BLOOD UREA NITROGEN (test code = BUN) 7 mg/dL 7-18 N GLOMERULAR FILTRATION RATE (test code = GFR) > 60 mL/min >=60 Estimated GFR by using Modified MDRD formula.Chronic kidney disease is defined as either kidney damageor GFR <60 mL/min/1.73 m2 for >3 months. CREATININE (test code = CREAT) 0.50 mg/dL 0.7-1.3 L BUN/CREATININE RATIO (test code = BUN/CREA) 13.4 10-20 N CALCIUM (test code = CA) 8.4 mg/dL 8.5-10.1 L [id number] 22:05:00* Test Item Value Reference Range Interpretation Comments SODIUM (test code = NA) 126 mmol/L 136-145 L SPECIMEN COMMENTS: pls obtain q6hr for th next 24hrs.AB [id number] 20:06:00* Test Item Value Reference Range Interpretation Comments AB TREPONEMA (test code = TREPAB) Nonreactive Index NonReactive HEPATIC FUNCTION [id number] 19:55:00* Test Item Value Reference Range Interpretation Comments TOTAL PROTEIN (test code = PROT) 6.7 gram/dL 6.4-8.2 N ALBUMIN (test code = ALB) 3.6 g/dL 3.4-5.0 N GLOBULIN (test code = GLOB) 3.1 gram/dL 2.7-4.2 N ALBUMIN/GLOBULIN RATIO (test code = A/G) 1.2 0.75-1.50 N BILIRUBIN TOTAL (test code = BILT) 0.40 mg/dL 0.0-1.0 N BILIRUBIN DIRECT (test code = BILD) 0.11 mg/dL 0.0-0.20 N SGOT/AST (test code = AST) 20 IUnit/L 15-37 N SGPT/ALT (test code = ALT) 17 IUnit/L 12-78 N ALKALINE PHOSPHATASE TOTAL (test code = ALKP) 61 IUnit/L 45-117 N Note change in reference range due to change in reagent. VITAMIN [id number] 19:55:00* Test Item Value Reference Range Interpretation Comments VITAMIN B12 (test code = VITB12) 546 pg/mL 193-986 N FOLIC [id number] 19:55:00* Test Item Value Reference Range Interpretation Comments FOLIC ACID (test code = FOL) 17.7 ng/mL 3.10-17.50 H THYROID STIMULATING [id number] 19:55:00* Test Item Value Reference Range Interpretation Comments THYROID STIMULATING HORMONE (test code = TSH) 0.362 uIU/mL 0.36-3.7 4 N TSH REFERENCE RANGES: EUTHYROID: 0.35 - 4.3 mIU/mL HYPO : > 5.5 mIU/mL HYPER : < 0.35 mIU/mL VITAMIN B6/[id number] 19:55:00* Test Item Value Reference Range Interpretation Comments VITAMIN B6/PYRIDOXINE (test code = VITB6) ng/mL 3-60 VIT B1 WHOLE [id number] 19:55:00* Test Item Value Reference Range Interpretation Comments VIT B1 WHOLE BLOOD (test code = QLNV3LH) nmol/L 87-280 DRUGS OF ABUSE SCREEN [id number] 19:25:00* Test Item Value Reference Range Interpretation Comments UA PH DIPSTICK (test code = ROMANA) 7.0 5.0-8.0 URN COCAINE (test code = COCAURN) NEGATIVE <300 ng/mL URN CANNABINOIDS (test code = CANNABURN) NEGATIVE <50 ng/mL URN AMPHETAMINE (test code = AMPHETURN) NEGATIVE <1000 ng/mL URN BARBITURATE (test code = BARBITURN) NEGATIVE <200 ng/mL URN BENZODIAZEPINE (test code = BENZOURN) NEGATIVE <200 ng/mL URN OPIATES (test code = OPIATURN) NEGATIVE <300 ng/mL URN PHENCYCLIDINE (PCP) (test code = PHENCURN) NEGATIVE <25 ng/ mL URN METHADONE (test code = METHAURN) NEGATIVE <300 ng/mL [id number] 19:14:00* Test Item Value Reference Range Interpretation Comments SODIUM (test code = NA) 124 mmol/L 136-145 L Resu lts called to [id number] by [email or web address] 01/30/20 1914Critical results verified and read back by Nurse? Y HEPATIC FUNCTION [id number] 19:13:00* Test Item Value Reference Range Interpretation Comments TOTAL PROTEIN (test code = PROT) 6.7 gram/dL 6.4-8.2 N ALBUMIN (test code = ALB) 3.6 g/dL 3.4-5.0 N GLOBULIN (test code = GLOB) 3.1 gram/dL 2.7-4.2 N ALBUMIN/GLOBULIN RATIO (test code = A/G) 1.2 0.75-1.50 N BILIRUBIN TOTAL (test code = BILT) 0.40 mg/dL 0.0-1.0 N BILIRUBIN DIRECT (test code = BILD) 0.11 mg/dL 0.0-0.20 N SGOT/AST (test code = AST) 20 IUnit/L 15-37 N SGPT/ALT (test code = ALT) 17 IUnit/L 12-78 N ALKALINE PHOSPHATASE TOTAL (test code = ALKP) 61 IUnit/L 45-117 N Note change in reference range due to change in reagent. VITAMIN [id number] 19:13:00* Test Item Value Reference Range Interpretation Comments VITAMIN B12 (test code = VITB12) pg/mL 193-986 FOLIC [id number] 19:13:00* Test Item Value Reference Range Interpretation Comments FOLIC ACID (test code = FOL) ng/mL 3.10-17.50 THYROID STIMULATING [id number] 19:13:00* Test Item Value Reference Range Interpretation Comments THYROID STIMULATING HORMONE (test code = TSH) uIU/mL 0.36-3.7 4 VITAMIN B6/[id number] 19:13:00* Test Item Value Reference Range Interpretation Comments VITAMIN B6/PYRIDOXINE (test code = VITB6) ng/mL 3-60 VIT B1 WHOLE [id number] 19:13:00* Test Item Value Reference Range Interpretation Comments VIT B1 WHOLE BLOOD (test code = UJZE3KV) nmol/L 87-280 [id number] 19:11:00* Test Item Value Reference Range Interpretation Comments AMMONIA (test code = AMM) 46 umol/L 11-32 H DRUGS OF ABUSE SCREEN [id number] 18:38:00* Test Item Value Reference Range Interpretation Comments UA PH DIPSTICK (test code = ROMANA) 7.0 5.0-8.0 URN COCAINE (test code = COCAURN) <300 ng/mL URN CANNABINOIDS (test code = CANNABURN) <50 ng/mL URN AMPHETAMINE (test code = AMPHETURN) <1000 ng/mL URN BARBITURATE (test code = BARBITURN) <200 ng/mL URN BENZODIAZEPINE (test code = BENZOURN) <200 ng/mL URN OPIATES (test code = OPIATURN) <300 ng/mL URN PHENCYCLIDINE (PCP) (test code = PHENCURN) <25 ng/ mL URN METHADONE (test code = METHAURN) <300 ng/mL UR NA,[id number] 17:59:00* Test Item Value Reference Range Interpretation Comments UR NA,RANDOM (test code = ALEX) 63 mmol/L 20-110 N UR OSMOLALITY [id number] 17:59:00* Test Item Value Reference Range Interpretation Comments UR OSMOLALITY RANDOM (test code = OSMOU) 254.5 mOsm/kg 48-962 N UR NA,[id number] 17:56:00* Test Item Value Reference Range Interpretation Comments UR NA,RANDOM (test code = ALEX) 63 mmol/L 20-110 N UR OSMOLALITY [id number] 17:56:00* Test Item Value Reference Range Interpretation Comments UR OSMOLALITY RANDOM (test code = OSMOU) mOsm/kg 48-962 [id number] 16:24:00* Test Item Value Reference Range Interpretation Comments GLUBED (test code = GLUBED) 105 mg/dL 74-106 N Performed by certified bromination equipment operator at [facility] - CTA [id number] 14:19:00 [facility] 1945 Age/S: 74 / M [address] [facility] Unit #: [id number] Loc: [place] [address] Phys: Roxie Silva CYTOMETRY TECHNOLOGIST Acct: [id number] Dis Date: Status: ADM IN PHONE #: [phone] Exam Date: 01/30/2020 1224 FAX #: [phone] Reason: AMS, TIA EXAMS: CPT CODE: [id number] CTA NECK [id number] HISTORY: AMS, TIA TECHNIQUE: Cerebral and Cervical CT angiography was acquired in the axial plane after bolus IV administration of iodinated contrast. Multiplanar, maximum intensity projection (MIP), and volume rendered reconstructions were created on the 3-D workstation. Automated exposure control for dose reduction. COMPARISON: CT scan of the brain earlier this morning FINDINGS: Bilateral distal cervical ICAs are patent. However there is atherosclerotic disease in the bilateral carotid bulbs that is worse on the left side and extends into the left internal carotid artery. However there is no evidence of significant stenosis on either side (left internal carotid artery demonstrates 35% stenosis from atherosclerosis). Atherosclerotic calcifications without significant stenosis involving the bilateral cavernous ICA segments. Bilateral petrous and supraclinoid ICA segments are patent. Normal enhancement of the bilateral ophthalmic arteries. Bilateral A1 and distal ALBERT segments are patent. Anterior communicating artery is present. Bilateral M1 and distal MCA branches are patent. No aneurysm. Bilateral distal vertebral arteries are patent although the left vertebral artery is hypoplastic compared to the right. Basilar artery is patent. Bilateral PICAs and SCAs are patent. Norm al appearance of the basilar tip. Bilateral P1 and distal SHOW WORKER segments are patent. 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 No aneu rysm. Dural venous sinuses and proximal internal jugular veins are patent. 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 Variant anatomy of the intracranial arteries with out occlusion or stenosis. Location: [facility] PAGE 1 Signed Report (CONTINUED) Name: MAXIMO MELO [facility] : 1945 A ge/S: 74 / M [address] Unit #: [id number] Loc : [place] [address] Phys: Roxie Silva NP Acct: [id number] Dis Date: Status: ADM IN PHONE #: [phone] Exam Date: 01/30/2020 1224 FAX #: [phone] Reaso n: AMS, TIA EXAMS: CPT CODE: [id number] CTA NECK 80513 <Continued> at 1419 Reported and signed by: Josh Coy MD CC: Kvng Garcia MD; Roxie Silva NP Technologist:Eladio Galindo RT(R),(MR),(CT) CTDI: DLP: Trnscb Date/Time: 01/30/2020 (1418) [email or web address].RR31 Orig Print D/T: S: 01/30/2020 (1421) PAGE 2 Signed Report - CTA [id number] 14:19:00 Name: MAXIMO [facility]EVZ [facility] : 1945 Age/S: 74 / M [address] Unit #: [id number] Loc: [place] [address] Phys: Roxie Silva NP Acct: [id number] Dis Date: Status: ADM IN PHONE #: [phone] Exam Date: 01/30/2020 1224 FAX #: [phone] Reason: AMS, TIA EXAMS: CPT CODE: [id number] CTA HEAD 97588 HISTORY: AMS, TIA TECHNIQUE: Cerebral and Cervical CT angiography was acquired in the axial plane after bolus IV administration of iodinated contrast. Multiplanar, maximum intensity projection (MIP), and volume rendered reconstructions were created on the 3-D workstation. Automated exposure control for dose reduction. COMPARISON: CT scan of the brain earlier this morning FINDINGS: Bilateral distal cervical ICAs are patent. However there is atherosclerotic disease in the bilateral carotid bulbs that is worse on the left side and extends into the left internal carotid artery. However there is no evidence of significant stenosis on either side (left internal carotid artery demonstrates 35% stenosis from atherosclerosis). Atherosclerotic calcifications without significant stenosis involving the bilateral cavernous ICA segments. Bilateral petrous and supraclinoid ICA segments are patent. Normal enhancement of the bilateral ophthalmic arteries. Bilateral A1 and distal ALBERT segments are patent. Anterior communicating artery is present. Bilateral M1 and distal MCA branches are patent. No aneurysm. Bilateral distal vertebral arteries are patent although the left vertebral artery is hypoplastic compared to the right. Basilar artery is patent. Bilateral PICAs and SCAs are patent. Norm al appearance of the basilar tip. Bilateral P1 and distal SHOW WORKER segments are patent. 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 No aneu rysm. Dural venous sinuses and proximal internal jugular veins are patent. 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 Variant anatomy of the intracranial arteries with out occlusion or stenosis. Location: [facility] PAGE 1 Signed Report (CONTINUED) Name: MAXIMO MELO [facility] : 1945 A ge/S: 74 / M [employer] Unit #: [id number] Loc : [place] [address] Phys: Roxie Silva NP Acct: [id number] Dis Date: Status: ADM IN PHONE #: [phone] Exam Date: 01/30/2020 1224 FAX #: [phone] Reaso n: AMS, TIA EXAMS: CPT CODE: [id number] CTA HEAD 59932 <Continued> at 1419 Reported and signed by: Josh Coy MD CC: Kvng Garcia MD; Roxie Silva NP Technologist:Eladio Galindo RT(R),(MR),(CT) CTDI: DLP: Trnscb Date/Time: 01/30/2020 (1419) [email or web address] Orig Print D/T: S: 01/30/2020 (1876) PAGE 2 Signed Report URINALYSIS [id number] 13:09:00* Test Item Value Reference Range Interpretation Comments UA COLOR (test code = COLU) Light-Yellow YELLOW UA APPEARANCE (test code = APPU) CLEAR CLEAR UA GLUCOSE DIPSTICK (test code = DGLUU) NEGATIVE mg/dL NEGATIVE UA BILIRUBIN DIPSTICK (test code = BILU) NEGATIVE mg/dL NEGATIVE UA KETONE DIPSTICK (test code = KETU) NEGATIVE mg/dL NEGATIVE UA SPECIFIC GRAVITY (test code = SGU) 1.008 1.001-1.035 UA BLOOD DIPSTICK (test code = CLAUDETTE) Negative mg/dL NEGATIVE UA PH DIPSTICK (test code = ROMANA) 7.0 5.0-8.0 UA PROTEIN DIPSTICK (test code = PROU) 10 (Trace) mg/dL NEGATIVE A UA UROBILINIOGEN DIPSTICK (test code = URO) Normal mg/dL NEGATIVE UA NITRITE DIPSTICK (test code = ZOË) NEGATIVE NEGATIVE UA LEUKOCYTE ESTERASE W REFLEX (test code = LEUUR) NEGATIVE Velma/uL NEGATIVE UA WBC (test code = WBCU) per HPF 0-5 UA RBC (test code = RBCU) per HPF 0-5 UA EPITHELIAL CELLS (test code = EPIU) per HPF Few UA BACTERIA (test code = BACU) per HPF NONE Urine Source? Clean CatchURINALYSIS [id number] 13:09:00* Test Item Value Reference Range Interpretation Comments UA COLOR (test code = COLU) Light-Yellow YELLOW UA APPEARANCE (test code = APPU) CLEAR CLEAR UA GLUCOSE DIPSTICK (test code = DGLUU) NEGATIVE mg/dL NEGATIVE UA BILIRUBIN DIPSTICK (test code = BILU) NEGATIVE mg/dL NEGATIVE UA KETONE DIPSTICK (test code = KETU) NEGATIVE mg/dL NEGATIVE UA SPECIFIC GRAVITY (test code = SGU) 1.008 1.001-1.035 UA BLOOD DIPSTICK (test code = CLAUDETTE) Negative mg/dL NEGATIVE UA PH DIPSTICK (test code = ROMANA) 7.0 5.0-8.0 UA PROTEIN DIPSTICK (test code = PROU) 10 (Trace) mg/dL NEGATIVE A UA UROBILINIOGEN DIPSTICK (test code = URO) Normal mg/dL NEGATIVE UA NITRITE DIPSTICK (test code = ZOË) NEGATIVE NEGATIVE UA LEUKOCYTE ESTERASE W REFLEX (test code = LEUUR) NEGATIVE Velma/uL NEGATIVE UA WBC (test code = WBCU) 0-5 per HPF 0-5 UA RBC (test code = RBCU) 0-3 #/HPF 0-5 UA EPITHELIAL CELLS (test code = EPIU) FEW per HPF FEW UA BACTERIA (test code = BACU) FEW #/HPF NONE Urine Source? Clean CatchBASIC METABOLIC [id number] 04:27:00* Test Item Value Reference Range Interpretation Comments SODIUM (test code = NA) 121 mmol/L 136-145 LL Resu lts called to [id number] by STAR 01/30/20 0427Critical results verified and read back by Nurse? Y POTASSIUM (test code = K) 4.0 mmol/L 3.5-5.1 N CHLORIDE (test code = CL) 87.0 mmol/L 98-107 L CARBON DIOXIDE (test code = CO2) 25.0 mmol/L 21-32 N ANION GAP (test code = GAP) 13.0 10-20 N GLUCOSE (test code = GLU) 105 mg/dL 74-106 N BLOOD UREA NITROGEN (test code = BUN) 8 mg/dL 7-18 N GLOMERULAR FILTRATION RATE (test code = GFR) > 60 mL/min >=60 Estimated GFR by using Modified MDRD formula.Chronic kidney disease is defined as either kidney damageor GFR <60 mL/min/1.73 m2 for >3 months. CREATININE (test code = CREAT) 0.70 mg/dL 0.7-1.3 N BUN/CREATININE RATIO (test code = BUN/CREA) 11.5 10-20 N CALCIUM (test code = CA) 8.4 mg/dL 8.5-10.1 L PROTHROMBIN [id number] 03:45:00* Test Item Value Reference Range Interpretation Comments PROTHROMBIN TIME PATIENT (test code = PTP) 11.3 seconds 9.0-14.0 N INTERNATIONAL NORMAL RATIO (test code = INR) 1.0 0.8-1.2 N The therapeutic range for oral anticoagulant therapy formost indications is an international normalized ratio (INR)of between 2.0 and 3.0. The recommended therapeutic INRrange for various clinical situations is listed below: Clinical Situation INR range Pulmonary e mbolism treatment (2.0-3.0)Venous thrombosis treatmentVenous thrombosis prophylaxis (high risk surgery)Prevention of systemic embolism from: Acute myocardial infarction Valvular heart disease Atrial fibrillation Mechanical prosthetic heart valves (2.5-3.5) IS PATIENT ON ANTICOAGULANTS? NTHROMBOPLASTIN TIME [id number] 03:45:00* Test Item Value Reference Range Interpretation Comments THROMBOPLASTIN TIME PARTIAL (test code = PTT) 27.4 seconds 23.0-37. 0 N IS PATIENT ON ANTICOAGULANTS? NCBC W/O [id number] 03:42:00* Test Item Value Reference Range Interpretation Comments WHITE BLOOD CELL (test code = WBC) 5.5 K/mm3 4.5-12.5 N RED BLOOD CELL (test code = RBC) 3.85 mill/mm3 4.0-5.8 L HEMOGLOBIN (test code = HGB) 12.1 gram/dL 13.0-17.5 L HEMATOCRIT (test code = HCT) 34.3 % 42.0-52.0 L MEAN CELL VOLUME (test code = MCV) 89.1 fL 80-98 N MEAN CELL HGB (test code = MCH) 31.4 picogram 27.0-33.0 N MEAN CELL HGB CONCETRATION (test code = MCHC) 35.3 gram/dL 33.0-36. 0 N RED CELL DISTRIBUTION WIDTH (test code = RDW) 12.2 % 11.6-16. 2 N PLATELET COUNT (test code = PLT) 218 K/mm3 150-450 N MEAN PLATELET VOLUME (test code = MPV) 9.0 fL 6.7-11.0 N - CT C-SPINE W/O [id number] 03:24:00 Name: MAXIMO GALVEZ [facility] : 1945 Age/S: 74 / M [address] [facility]: [id number] Loc: [place] [address] Phys: Kathy Go MD Acct: [id number] Dis Date: Status: REG ER PHONE #: [phone] Exam Date: 01/30/2020311 FAX #: [phone] Reason: Neck Pain EXAMS: CPT CODE: [id number] CT C-SPINE W/O CONTRAST 38005 AFTER HOURS SERVICE ON: 01/30/2020 3:[address] of the Cervical Spine Without Contrast Location Code M12 History: Neck Pain Technique: Scans were obtained on a helical scanner pre IV contrast only. One or more of the following dose reduction techniques were used: Automated exposure control, adjustment of the mA and/or kV according to patient size, and/or utilization of iterative reconstruction technique. Findings: Craniocervical junction is intact. Atlantoaxial joint is unremarkable. C1 ring is normal. Dens is intact. Transverse processes, pedicles and lamina are intact. No compression fracture or pathologic lesions. There is mild cervical spondylosis. There is no significant central canal stenosis. Multilevel mild to moderate bilateral foraminal stenoses are seen due to uncovertebral hypertrophy. Impression: No cervical spine fracture. at 0324 Reported and signed by: Lynda Chong M.D. CC: Kathy Go MD Technologist:RT TATIANA CTDI: DLP: Trnscb Date/Time: 01/30/2020 (323) [email or web address].MA50 Orig Print D/T: S: 01/30/2020 (0327) PAGE 1 Signed Report - CT HEAD/BRAIN W/O [id number] 03:20:00 Name: MAXIMO GALVEZ [facility] : 1945 Age/S: 74 / M [address] [facility] Unit #: [id number] Loc: [place] [address] Phys: Kathy Go MD Acct: [id number] Di s Date: Status: REG ER PHONE #: [phone] Exam Date: 01/30/2020311 FAX #: Reason: HEADACHE EXAMS: CPT CODE: [id number] CT HEAD/BRAIN W/O CONT 21880 AFTER HOURS SERVICE ON: 1 3:[address] Scan of the Brain Without Contrast Location Code M12 History: HEADACHE Technique: S cans were performed on a helical scanner pre IV contrast only. The study i s limited secondary to lack of intravenous contrast, particularly for eval uation of masses. One or more of the following dose reduction jasper hniques were used: Automated exposure control, adjustment of the mA and/or kV according to patient size, and/or utilization of iterative reconstruct ion technique. Findings: There is no hydrocep halus. Basal cisterns are patent. There is no intracranial hyperdense hemo rrhage. There is no midline shift or mass effect. No effacement of the gra y-white matter junction to indicate acute infarction. There are chronic is chemic white matter changes. There is a posterior scalp laceration. Ther e is no skull fracture. Impression: Posterior scalp laceration. No skull fracture or intracranial hemorrhage. at 0320 Reported a nd signed by: Lynda Chong M.D. CC: Kathy Go MD Technologist:RT TATIANA CTDI: DLP: Trnscb Date/Time: 01/30/2020 (319) SarahR.MA50 Orig Print D/T: S: 01/30/2020 (322) PAGE 1 Si gned Report Serum or plasma sodium measurement (moles/volume)2020-01-23 04:35:00* Test Item Value Reference Range Interpretation Comments Sodium Level (test code = 2951-2) 132 136-145 [facility] potassium measurement (moles/volume)2020-01-23 04:35:00* Test Item Value Reference Range Interpretation Comments Potassium Level (test code = 2823-3) 3.7 3.5-5.1 [facility] plasma chloride measurement (moles/volume)2020-01-23 04:35:00* Test Item Value Reference Range Interpretation Comments Chloride Level (test code = 2075-0) 98 98-107 [facility] or plasma carbon dioxide, total measurement (moles/volume)2020-01-23 04:35:00* Test Item Value Reference Range Interpretation Comments Carbon Dioxide Level (test code = 2028-9) 26 22-29 [facility] or plasma anion cks2024-04-50 04:35:00* Test Item Value Reference Range Interpretation Comments Anion Gap (test code = 41452-5) 11.7 8-16 [facility] plasma urea nitrogen measurement (mass/volume)2020-01-23 04:35:00* Test Item Value Reference Range Interpretation Comments Blood Urea Nitrogen (test code = 3094-0) 11 7-26 [facility] or plasma creatinine measurement (mass/volume)2020-01-23 04:35:00* Test Item Value Reference Range Interpretation Comments Creatinine (test code = 2160-0) 0.70 0.72-1.25 [facility] or plasma urea nitrogen/creatinine mass [id number] 04:35:00* Test Item Value Reference Range Interpretation Comments BUN/Creatinine Ratio (test code = 3097-3) 16 6-25 [facility] CenterEstimated glomerular filtration rate (GFR) bscuxdqrladty5679-81-91 04:35:00* Test Item Value Reference Range Interpretation Comments Estimat Glomerular Filtration Rate (test code = 866415161) > 60 >60 Ranges were taken from the National Kidney Disease Education Program and the [facility] Kidney Foundation literature.Reference ranges:60 or greater: Aisnhu75-47 ( for 3 consecutive months): Chronic kidney disease 15 or less: Kidney failureBaylor University Medical CenterGlucose oyiybunejrw0123-81-90 04:35:00* Test Item Value Reference Range Interpretation Comments Glucose Level (test code = UOX8970) 92 74-118 [facility] plasma calcium measurement (mass/volume)2020-01-23 04:35:00* Test Item Value Reference Range Interpretation Comments Calcium Level (test code = 50299-5) 8.8 8.4-10.2 [facility] CenterBlood cobalamin (vitamin B12) measurement (mass/volume)2020-01-22 12:05:00* Test Item Value Reference Range Interpretation Comments Vitamin B12 Level (test code = 12617-5) 1000 213-816 [facility] CenterBl[facility] leukocytes automated count (number/volume)2020-01-22 04:30:00* Test Item Value Reference Range Interpretation Comments White Blood Count (test code = 6690-2) 4.84 4.8-10.8 [facility] CenterBl[facility] erythrocytes automated count (number/volume)2020-01-22 04:30:00* Test Item Value Reference Range Interpretation Comments Red Blood Count (test code = 789-8) 3.89 4.3-5.7 [facility] hemoglobin measurement (moles/volume)2020-01-22 04:30:00* Test Item Value Reference Range Interpretation Comments Hemoglobin (test code = 61580-1) 12.7 14.0-18.0 [facility] CenterAutscionhealthed blood hematocrit (volume fraction)2020-01-22 04:30:00* Test Item Value Reference Range Interpretation Comments Hematocrit (test code = 4544-3) 35.9 38.2-49.6 [facility] CenterAutomated erythrocyte mean corpuscular jpdmqm6175-85-67 04:30:00* Test Item Value Reference Range Interpretation Comments Mean Corpuscular Volume (test code = 787-2) 92.3 81-99 [facility] CenterAutomated erythrocyte mean corpuscular hemoglobin (mass per erythrocyte)2020-01-22 04:30:00* Test Item Value Reference Range Interpretation Comments Mean Corpuscular Hemoglobin (test code = 785-6) 32.6 28-32 [facility] CenterAutomated erythrocyte mean corpuscular hemoglobin concentration measurement (mass/volume)2020-01-22 04:30:00* Test Item Value Reference Range Interpretation Comments Mean Corpuscular Hemoglobin Concent (test code = 786-4) 35.4 31-35 [facility] CenterRDW KfqQf-Bzl1417-60-27 04:30:00* Test Item Value Reference Range Interpretation Comments Red Cell Distribution Width (test code = 36034-1) 12.8 11.7 -14.4 [facility] CenterAutomated blood platelet count (count/volume)2020-01-22 04:30:00* Test Item Value Reference Range Interpretation Comments Platelet Count (test code = 777-3) 230 140-360 [facility] CenterAutomated blood segmented neutrophil count as percentage of total ogixfuzdsn1206-81-55 04:30:00* Test Item Value Reference Range Interpretation Comments Neutrophils (%) (Auto) (test code = 73705-7) 83.3 38.7-80.0 [facility] CenterAutomated blood lymphocyte count as percentage ot total nvybhnokjw4546-09-60 04:30:00* Test Item Value Reference Range Interpretation Comments Lymphocytes (%) (Auto) (test code = 736-9) 12.6 18.0-39.1 [facility] CenterAutomated blood monocyte count as percentage of total djmepxltne3296-48-67 04:30:00* Test Item Value Reference Range Interpretation Comments Monocytes (%) (Auto) (test code = 5905-5) 3.5 4.4-11.3 [facility] CenterAutomated blood eosinophil count as percentage of total ieblnootah0888-66-46 04:30:00* Test Item Value Reference Range Interpretation Comments Eosinophils (%) (Auto) (test code = 713-8) 0.0 0.0-6.0 [facility] CenterAutomated blood basophil count as percentage of total bddesvinmj6645-77-09 04:30:00* Test Item Value Reference Range Interpretation Comments Basophils (%) (Auto) (test code = 706-2) 0.4 0.0-1.0 [facility] CenterFluoroscopic procedure less than one hour zmzpoazj7242-77-25 04:30:00* Test Item Value Reference Range Interpretation Comments IM GRANULOCYTES % (test code = IM GRANULOCYTES %) 0.2 0.0- 1.0 [facility] CenterAutomated blood neutrophil count 2020-01-22 04:30:00* Test Item Value Reference Range Interpretation Comments Neutrophils # (Auto) (test code = 751-8) 4.0 2.1-6.9 [facility] CenterBlood lymphocytes count (number/volume) 2020-01-22 04:30:00* Test Item Value Reference Range Interpretation Comments Lymphocytes # (Auto) (test code = 83747-0) 0.6 1.0-3.2 [facility] CenterBlood monocytes automated count (number/volume)2020-01-22 04:30:00* Test Item Value Reference Range Interpretation Comments Monocytes # (Auto) (test code = 742-7) 0.2 0.2-0.8 [facility] CenterAutomated blood eosinophil count 2020-01-22 04:30:00* Test Item Value Reference Range Interpretation Comments Eosinophils # (Auto) (test code = 711-2) 0.0 0.0-0.4 [facility] CenterAutomated blood basophil count (count/volume)2020-01-22 04:30:00* Test Item Value Reference Range Interpretation Comments Basophils # (Auto) (test code = 704-7) 0.0 0.0-0.1 [facility] CenterFluoroscopic procedure less than one hour pkavxbio9570-36-27 04:30:00* Test Item Value Reference Range Interpretation Comments Absolute Immature Granulocyte (auto (jim t code = Absolute Immature Granulocyte (auto) 0.01 0-0.1 [facility] CenterFree thyroxine fettp9220-75-23 15:33:00* Test Item Value Reference Range Interpretation Comments Free Thyroxine Index (test code = 83598-9) 1.7866 1.4-3.8 [facility] plasma thyroxine (T4) measurement (mass/volume)2020-01-20 15:33:00* Test Item Value Reference Range Interpretation Comments Thyroxine (T4) (test code = 3026-2) 6.18 4.5-10.9 [facility] or plasma triiodothyronine resin uptake (T3RU)2020-01-20 15:33:00* Test Item Value Reference Range Interpretation Comments Triiodothyronine (T3) Uptake (test code = 3050-2) 28.91 22.5 -37.0 [facility] or plasma thyrotropin measurement by detection limit <= 0.005 miu/l (units/volume)2020-01-20 15:33:00* Test Item Value Reference Range Interpretation Comments Thyroid Stimulating Hormone (TSH) (test code = 51413-0) 0.399 0.350-4.940 [facility] nuclear antibody titer by arbkajtglbyehgcpvn3070-63-64 15:33:00* Test Item Value Reference Range Interpretation Comments Anti-Nuclear Antibody Screen (test code = 5048-4) Negative . Negative <1:80 Borderline 1:80 Positive > 1:80Performed at: [facility] [id number] 3Lab Director: Roverto Putnam MD, Phone: [phone] University Medical CenterCT BRAIN [id number] 11:44:00 [facility] [address] [place] [address] Patient Name: MAXIMO GALVEZ MR #: [id number] : 1945 Age/Sex: 74/M Req #: [id number] Adm Physician: VIRGILIO WONG MD Ordered by: VIRGILIO WONG MD Report #: [id number] Location: [facility] Room/Bed: [place] [address] Procedure: [id number] CT/CT BRAIN WO Ex am Date: 01/20/20 Exam Time: 1115 REPORT STATUS: Signed Exam: Head CT without contras t History: Weakness, hyponatremia Comparison studies: Head CT 01/18/2020 Technique: Axial images were obtained from the skull base to the vertex. Coronal and sagittal images reconstructed from the axial data. Dose modulatio n, iterative reconstruction, and/or weight based adjustment of the mA/kV was u tilized to reduce the radiation dose to as low as reasonably achievable. Radiation dose: Total DLP: 921.4 mGy*cm. Estimated effective dose: DLP x 0.015 Intravenous contrast: None Findings: Scalp: No abnormalities . Bones: No fractures, blastic or lytic lesions. Brain sulci: Mild from. Ventricles: Mild compensatory dilatation. No hydrocephalus. Extra-axial s paces: Prominent extra-axial space similar to CSF density within the prepontin e and perimedullary cisterns may be due to an arachnoid cyst or possibly secon rex to ectatic right vertebral and basilar artery. Parenchyma: Ill-defi porter and confluent hypodensities in the supratentorial white matter are nonspec ific but are most compatible with chronic microvascular ischemic changes. Unch anged chronic lacunar infarct in the posterior limb of the left internal capsu le. Sellar/suprasellar region: No abnormalities. Craniocervical junction: Patent foramen magnum. No Chiari one malformation. 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 IMPRESSION: No acute intracranial abnormalities. No c hanges from the prior head CT of 01/18/2020. Chronic findings: 1. Mild ge neralized parenchymal volume loss. 2. Chronic left thalamic lacunar infarct. 3. Moderate microvascular ischemic changes. Signed by: Dr. Andrew Hagen M.D. on 01/20/2020 11:50 AM Dictated By: ANDREW HAGEN MD Electronica ll Signed By: ANDREW HAGEN MD on 01/20/20 1150 Transcribed By: MAT on 0 01/20/20 1150 COPY TO: VIRGILIO WONG MD Urine sodium measurement (moles/volume)2020-01-20 08:09:00* Test Item Value Reference Range Interpretation Comments Urine Random Sodium (test code = 2955-3) 97 [facility] [id number] 13:27:00 [place] [address] Patient Name: MAXIMO GALVEZ MR #: [id number] : 1945 Age/Sex: 74/M Req #: [id number] Adm Physician: VIRGILIO WONG MD Ordered by: VIRGILIO WONG MD Report #: [id number] Location: [facility] Room/Bed: [facility] 198-1 Procedure: [id number] CT/CT CHEST WO Ex am Date: 01/19/20 Exam Time: 1310 REPORT STATUS: Signed EXAM: CT Chest WITHOUT intrav enous contrast 01/19/2020 1:07 PM INDICATION: sob COMPARISON: X-ray dated 01/18/2020 TECHNIQUE: Chest was scanned utilizing a multidetector helical sc angie from the lung apex through the level of the adrenal glands without admin istration of IV contrast. Coronal and sagittal reformations were obtained. Rou meghna protocol was performed. IV CONTRAST: None RADIATION DOSE: Total DL P: 421 mGy*cm. Dose modulation, iterative reconstruction, and/or weight based adjustment of the mA/kV was utilized to reduce the radiation dose to as low as reasonably achievable. COMPLICATIONS: None FINDINGS: LINES/ TUBES: None. LUNGS AND AIRWAYS: Large airways are clear. There is lower lobe pre dominant peripheral interstitial scarring. Honeycombing is noted at the lung b ases with traction bronchiectasis. Interlobular septal thickening is noted. PLEURA: The pleural spaces are clear. Pleural thickening is noted at the lung bases. HEART AND MEDIASTINUM: The thyroid gland is normal. No mediastin al, hilar or axillary lymphadenopathy. Multiple nonenlarged mediastinal lymph nodes are noted. The heart is normal in size. There is no pericardial effusion . Scattered coronary artery calcifications are noted. After scarring calcif ications of the aortic arch are noted. UPPER ABDOMEN: Unremarkable. LUIS STANTON: Negative for acute osseous abnormality. Osseous structures are mildly dem ineralized. Mild multilevel degenerative changes are noted. No suspicious lyti c or blastic lesion is identified. SOFT TISSUES: Unremarkable. IMPRESS ION: Constellation of findings concerning for chronic interstitial lung disea se. 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 Although no definite suspicious infectious infiltrate is identified lack of comparison imaging does limit evaluation. Consider short-term follow-up i n 3-6 months to evaluate for stability. Signed by: Marino Parikh MD on 2019 1:35 PM Dictated By: MARINO PARIKH MD 34 Transcribed By: MAT on 01/19/20 133 C OPY TO: VIRGILIO WONG MD Serum or plasma creatine kinase measurement (enzymatic activity/volume)2020-01-19 12:35:00* Test Item Value Reference Range Interpretation Comments Creatine Kinase (test code = 2157-6) 195 30-200 [facility] or plasma creatine kinase MB measurement (mass/volume)2020-01-19 12:35:00* Test Item Value Reference Range Interpretation Comments Creatine Kinase MB (test code = 11815-5) 4.10 0-5.0 [facility] by highly sensitive enzyme fnsoyebmjdd0826-69-69 12:35:00* Test Item Value Reference Range Interpretation Comments Troponin I (test code = 72392-4) 0.005 0-0.300 [facility] CenterOsmolality of Serum or Plasma by onfnxijdpnr6628-68-97 04:15:00* Test Item Value Reference Range Interpretation Comments Serum Osmolality (test code = 02153-2) 251 278-305 [facility] or plasma total bilirubin measurement (mass/volume)2020-01-19 04:15:00* Test Item Value Reference Range Interpretation Comments Total Bilirubin (test code = 1975-2) 0.4 0.2-1.2 [facility] CenterFluor[facility] procedure less than one hour mfbewffk4076-02-81 04:15:00* Test Item Value Reference Range Interpretation Comments Aspartate Amino Transf (AST/SGOT) (test code = Aspartate Amino Transf (AST/SGOT)) 16 5-34 [facility] or plasma alanine aminotransferase measurement (enzymatic activity/volume)2020-01-19 04:15:00* Test Item Value Reference Range Interpretation Comments Alanine Aminotransferase (ALT/SGPT) (test code = 1742-6) 7 0-55 [facility] or plasma protein measurement (mass/volume)2020-01-19 04:15:00* Test Item Value Reference Range Interpretation Comments Total Protein (test code = 2885-2) 6.1 6.5-8.1 [facility] or plasma albumin measurement (mass/volume)2020-01-19 04:15:00* Test Item Value Reference Range Interpretation Comments Albumin (test code = 1751-7) 3.7 3.5-5.0 [facility] Center[facility] globulin measurement (mass/volume) 2020-01-19 04:15:00* Test Item Value Reference Range Interpretation Comments Globulin (test code = 25730-5) 2.4 2.3-3.5 [facility] or plasma albumin/globulin mass julam9538-83-69 04:15:00* Test Item Value Reference Range Interpretation Comments Albumin/Globulin Ratio (test code = 1759-0) 1.5 0.8-2.0 [facility] or plasma alkaline phosphatase measurement (enzymatic activity/volume)2020-01-19 04:15:00* Test Item Value Reference Range Interpretation Comments Alkaline Phosphatase (test code = 6768-6) 57 40-150 [facility] Center[facility] 2 [id number] 20:52:00 [facility] [address] [address] Patient Name: MAXIMO GALVEZ MR #: [id number] : 1945 Age/Sex: 74/M Req #: [id number] Adm Physician: VIRGILIO WONG MD Ordered by: DANIKA WONG DO Report #: [id number] Location: [facility] Room/Bed: [place] [address] Procedure: [id number] DX/CHEST 2 VIEWS Exam Date: 01/18/20 Exam Time: 1940 REPORT STATUS: Signed EXAMINATION: CHEST 2 VIE WS INDICATION: Assess post fall. COMPARISON: None FINDI NGS: TUBES and LINES: None. LUNGS: Low lung volumes with multifocal interstitial and patchy airspace opacities. PLEURA: No pleural effusion or pneumothorax. HEART AND MEDIASTINUM: The cardiomediastinal silhouette is enlarged. BONES AND SOFT TISSUES: No acute osseous lesion. Soft tissue s are unremarkable. UPPER ABDOMEN: No free air under the diaphragm. IMPRESSION: 1. Patchy airspace opacities throughout both lungs which m ost likely represents multifocal pneumonia. 2. Cardiomegaly with likely mckeon perimposed pulmonary edema. Signed by: Hina Montenegro MD on 01/18/2020 8:54 P M Dictated By: HINA MONTENEGRO MD 53 Transcribed By: MAT on 01/18/202053 COPY TO: DANIKA WONG DO Fluoroscopic procedure less than one hour duration 2020-01-18 20:50:00* Test Item Value Reference Range Interpretation Comments Coronavirus (PCR) (test code = Coronavirus (PCR)) NOT DETECTED NOTD ETECTED SARS-CoV-2 PCRHologic Aptima SARS-CoV-2 assay is a nucleic amplification test in tended for the qualitative detection of RNA from SARS-CoV-2 from nasopharyngeal (CYTOMETRY TECHNOLOGIST) specimens. It is used under Emergency Use Authorization (EUA) by FDA.A posi tive result is indicative of the presence of SARS-CoV-2 RNA. Clinical correlatio n with patient history and other diagnostic information is necessary to determin e patient infection status.A negative (Not Detected) result does not preclude SA RS-CoV-2 infection. Clinical Correlation with patient history and other diagnost ic information should be used in patient management decisions.Invalid: Unable to generate a valid result on this specimen. Please submit a new specimen for repr at testing oc clinically indicated.Tesing performed by:[facility] [place] [address] [id number], Chema foster MD, PhDRolling Plains [facility] THREE VIEWS BILATERAL 2020-01-18 20:50:00 [place] [address] Patient Name: MAXIMO GALVEZ MR #: [id number] : 1945 Age/Sex: 74/M Req #: [id number] Adm Physician: VIRGILIO WONG MD Ordered by: DANIKA WONG DO Report #: [id number] Location: [facility] Room/Bed: [place] [address] Procedure: [id number] DX/KNEE THREE EWS BILATERAL Exam Date: 01/18/20 Exam Time: 1939 REPORT STATUS: Signed Bilateral kn ee x-rays - 3 view(s) each HISTORY: Pain. COMPARISON: None available . FINDINGS: RIGHT: No displaced fracture. The osseous alignmen t is within normal limits. The joint spaces are well-maintained. The soft ti ssues appear unremarkable. LEFT: No displaced fracture. The osseous a lignment is within normal limits. The joint spaces are well-maintained. The soft tissues appear unremarkable. IMPRESSION: No acute radiographic a bnormality. Signed by: Hina Montenegro MD on 01/18/2020 8:52 PM Dictate d By: HINA MONTENEGRO MD 51 Transcribed By: MAT on 01/18/202051 COPY TO: DANIKA WONG DO HAND 3+ VIEWS [id number] 20:48:00 [place] [address] Patient Name: MAXIMO GALVEZ MR #: [id number] : 1945 Age/Sex: 74/M Req #: [id number] Adm Physician: VIRGILIO WONG MD Ordered by: DANIKA WONG DO Report #: [id number] [facility] Procedure: DX/HAND 3+ VIEWS RIGHT Exam Date: 01/18/20 Exam Time: 1939 REPORT STATUS: Signed X-ray 3 views of th e hand. HISTORY: Pain. COMPARISON: None available. FINDING S: Bones: No acute displaced fracture. Osseous alignment is within wesley l limits. Joints: The joint spaces are well-maintained. There are degener ative changes of multiple interphalangeal joints. Soft tissues: Severe vascular sclerotic calcification. IMPRESSION: No acute fracture or di slocation. No focal soft tissue abnormality. Signed by: Hina Montenegro MD on 01/18/2020 8:50 PM Dictated By: HINA MONTENEGRO MD 49 Transcribed By: MAT on 01/18/202049 COPY TO: DANIKA WONG DO CT CERVICAL SPINE [id number] 20:31:00 [place] [address] Patient Name: MAXIMO GALVEZ MR #: [id number] : 1945 Age/Sex: 74/M Req #: [id number] Adm Physician: Ordered by: DANIKA WONG DO Report #: [id number] Location: ER Room/Bed: Procedure: [id number] CT/CT CERVICAL Ed[place] DEAL Exam Date: 01/18/20 Exam Time: 1919 REPORT STATUS: Signed History: Trauma Comparison studies: None Technique: Axial images were obtained through t he cervical region.. Coronal and sagittal images reconstructed from the axial data. Dose modulation, iterative reconstruction, and/or weight based adjustmen t of the mA/kV was utilized to reduce the radiation dose to as low as reasona caryl achievable. Intravenous contrast: None Findings: Fractures : None. Soft tissues: No gross abnormalities. Atlantoaxial articulation: Intact. Alignment: Straightening of the usual lordosis is probably positional. No scoliosis. Cervicomedullary junction: No abnormalities. The foramen magn um is patent. Vertebrae: No infection or neoplasm. Degenerative alia nges: Moderate at the atlantoaxial articulation. No significant degenerativ e changes in the discs. Mild foraminal stenosis on the right at C4-5 due to un coarthrosis. Bilateral facet arthrosis at C7-T1. Patent spinal canal. Inc idental findings: Focal calcification of the ligamentum nuchae at C5-6. Athe rosclerotic calcifications (aortic arch, subclavian and brachiocephalic arteri es and at the carotid bulbs). IMPRESSION: 1. No acute abnormalities. 2. Specifically, no fractures or subluxations. 3. Cannot adequately evaluate for ligament, spinal cord and or vascular abnormalities. Signed by: Dr. Antonio Che M.D. on 01/18/2020 8:36 PM Dictated By: ANTONIO CHE MD, MD 35 COPY TO: NASIMA WONG DO CT DOUG GREEN/ELIZABETH [id number] 20:27:00 [place] [address] Patient Name: MAXIMO GALVEZ MR #: [id number] : 1945 Age/Sex: 74/M Req #: [id number] Adm Physician: Ordered by: DANIKA WONG DO Report #: [id number] Location: ER Room/Bed: Procedure: CT/CT MAXIO FAC/ PARANAS WO Exam Date: 01/18/20 Exam Time: 1919 REPORT STATUS: Signed History:Fall Comparison studies: None Technique: Axial images were obtained through th e maxillofacial region. Coronal and sagittal images reconstructed from the axi al data. Dose modulation, iterative reconstruction, and/or weight based adjust ment of the mA/kV was utilized to reduce the radiation dose to as low as reas onably achievable. Intravenous contrast: None Findings: Soft t issues: No abnormalities. Bones: No fractures or bone abnormalities. Orbits: Globes: Intact Extra or intraconal abnormalities: None. P aranasal sinuses: Clear IMPRESSION: 1. No maxillofacial abnormali ties. 2. Specifically, no fractures Signed by: Deandra Taylor on 01/18/2020 8:30 PM Dictated By: ANTONIO CHE MD, MD Electro nically Signed By: ANTONIO CHE MD, MD on 01/18/202029 Transcribed By: MAT on 01/18/202029 COPY TO: DANIKA WONG DO CT BRAIN WO 2020-01-18 20:25:00 [place] [address] Patient Name: MAXIMO GALVEZ MR #: [id number] : 1945 Age/Sex: 74/M Req #: [id number] Adm Physician: Ordered by: DANIKA WONG DO Report #: [id number] Location: ER Room/Bed: Procedure: [id number] CT/CT BRAIN WO Exam Date: 01/18/20 Exam Time: 1919 REPORT STATUS: Signed ADDENDUM #1 Incidental 1.4 cm widening of the prepontine cistern (series 400, nadine ge 32) is probably due an incidental arachnoid cyst. Signed by: Dr. Antonio Che M.D. on 01/18/2020 8:37 PM ORIGINAL REPORT History:Fall Comparison studies: None Technique: Axial images we re obtained from the skull base to the vertex. Coronal and sagittal images rec onstructed from the axial data. Dose modulation, iterative reconstruction, and /or weight based adjustment of the mA/kV was utilized to reduce the radiation dose to as low as reasonably achievable. Intravenous contrast: None Findings: Scalp/skull: No abnormalities. Extra-axial spaces: N o masses. No fluid collections. Brain sulci: Mildly prominent. Ventricle s: Mild compensatory dilatation. No hydrocephalus. Parenchyma: Diffuse, confluent hypodensities in the supratentorial white matter are small vessel is chemic changes. No masses, hemorrhage, acute or chronic cortical vascular ins ults. Sellar/suprasellar region: No abnormalities. Craniocervical junctio n: Patent foramen magnum. No Chiari one malformation. Incidental findings: Tortuous and ectatic and partially calcified right vertebral and basilar ar teries. Coarse calcifications in the left vertebral artery, carotid siphons an d M1 segment of the left MCA. Impression: No acute intracranial abno rmalities. Chronic findings: 1. Mild generalized volume loss. 2. Diff use supratentorial white matter small vessel ischemic changes. Signed by: Barbara Che M.D. on 01/18/2020 8:27 PM Dictated By: ANTONIO NASSAR MD, MD 26 COPY TO: MARVINDANIKA Barbara Amaya BNP [id number] 19:32:00* Test Item Value Reference Range Interpretation Comments B-Type Natriuretic Peptide (test code = 98517-9) 61.9 0-100 [facility] plasma ethanol measurement (mass/volume)2020-01-18 19:32:00* Test Item Value Reference Range Interpretation Comments Ethyl Alcohol Level (test code = 5643-2) < 10.0 0.0-10.0 [facility] color vbbczaaqgzvju6221-73-06 19:30:00* Test Item Value Reference Range Interpretation Comments Urine Color (test code = 5778-6) YELLOW YELLOW [facility] CenterUrine rglisaz3277-41-87 19:30:00* Test Item Value Reference Range Interpretation Comments Urine Clarity (test code = 23110-7) SL CLOUDY CLEAR [facility] gravity of Urine by Test strip 2020-01-18 19:30:00* Test Item Value Reference Range Interpretation Comments Urine Specific [place] (test code = 5811-5) 1.025 1.010-1.02 5 [facility] pH measurement by automated test [id number] 19:30:00* Test Item Value Reference Range Interpretation Comments Urine pH (test code = 28022-6) 7 5-7 [facility] Center[facility] leukocyte esterase detection by ghfbizjn9799-75-59 19:30:00* Test Item Value Reference Range Interpretation Comments Urine Leukocyte Esterase (test code = 5799-2) NEGATIVE NEGATIVE [facility] Center[facility]rine nitrite pssocyslh8025-57-31 19:30:00* Test Item Value Reference Range Interpretation Comments Urine Nitrite (test code = 04553-2) NEGATIVE NEGATIVE [facility] Center[facility] protein measurement by test strip (mass/volume)2020-01-18 19:30:00* Test Item Value Reference Range Interpretation Comments Urine Protein (test code = 5804-0) >=300 NEGATIVE [facility] CenterUrine glucose leawenvrd8379-57-81 19:30:00* Test Item Value Reference Range Interpretation Comments Urine Glucose (UA) (test code = 2349-9) NEGATIVE NEGATIVE [facility] Center[facility]rine ketones detection by automated test [id number] 19:30:00* Test Item Value Reference Range Interpretation Comments Urine Ketones (test code = 20264-9) NEGATIVE NEGATIVE [facility] Center[facility]rine urobilinogen measurement by test strip (mass/volume)2020-01-18 19:30:00* Test Item Value Reference Range Interpretation Comments Urine Urobilinogen (test code = 66564-9) 0.2 0.2-1 [facility] total bilirubin measurement (mass/volume)2020-01-18 19:30:00* Test Item Value Reference Range Interpretation Comments Urine Bilirubin (test code = 1978-6) NEGATIVE NEGATIVE [facility] Center[facility] erythrocytes xnsnjyiml8889-09-77 19:30:00* Test Item Value Reference Range Interpretation Comments Urine Blood (test code = 23616-6) NEGATIVE NEGATIVE [facility] CenterAutomated urine sediment leukocyte count by microscopy (number/high power field)2020-01-18 19:30:00* Test Item Value Reference Range Interpretation Comments Urine WBC (test code = 5821-4) 0-5 0-5 [facility] CenterErythrocytes detection in urine sediment by light qavkydkooe8554-43-91 19:30:00* Test Item Value Reference Range Interpretation Comments Urine RBC (test code = 39282-7) NONE 0-5 [facility] CenterBacteria detection in urine sediment by light rqndfmbdnk0990-66-84 19:30:00* Test Item Value Reference Range Interpretation Comments Urine Bacteria (test code = 56459-9) FEW NONE [facility] CenterEpithelial cells detection in urine sediment by light zbguyqqszm7364-21-06 19:30:00* Test Item Value Reference Range Interpretation Comments Urine Epithelial Cells (test code = 33915-5) NONE NONE [facility] CenterOsmolality of Ofejw2607-69-48 19:30:00* Test Item Value Reference Range Interpretation Comments Urine Osmolality (test code = 2695-5 415 . 24 hr : 300 - 900 Random: 50 - 1400 After 12hr fluid restriction: >850Performed at: HD - [facility] [id number] [place], [place] [id number] Director: Roverto Putnam MD, Phone: [phone] [facility]- CT HEAD/BRAIN W/O [id number] 13:07:00 Name: MAXIMO GALVEZ [facility] : 1945 Age/S: 74 / M [address] [facility] Unit [facility]: [id number] Loc: [place] [address] Phys: Kathy Go MD Acct: [id number] Dis Date: Status: REG ER PHONE #: [phone] Exam Date: 06/06/2019 1255 FAX #: [phone] Reason: FRONTAL HEADACHE EXAMS: CPT CODE: [id number] CT HEAD/BRAIN W/O CONT 12416 HISTORY: Frontal headaches. COMPARISON: Head CT from March 03, 2019. CT brain without contrast: Automated exposure control. Location: [facility]. No acute intracranial bleeds or extra- axial collections are noted. No acute territorial vascular infarction is noted. 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 The sulci, gyri, ventricles and subarachnoid spaces and the basilar cisterns are normal for patient's age. No herniation or hydrocephalus or midline shift is noted. Ectatic basilar artery noted again. Extensive chronic periventricular ischemic gliosis is noted. Age- appropriate atrophy is noted as well. Portions of the visualized paranasal sinuses are normal. No obvious bony calvarial defect is noted. IMPRESSION: No acute intracranial bleeds or extra-axial collections. No acute territorial vascular infarction. No herniation or hydrocephalus or midline shift. Extensive chronic white matter ischemic disease and atrophy . at 1307 Reported and signed by: Maxim Grace M.D. CC: Kathy Go MD Technologist:Eladio Galindo RT(R),(MR),(CT) CTDI: DLP: Trnscb Date/Time: 06/06/2019 (0357) t.[email or web address] Orig Print D/T: S: 06/06/2019 (3654) PAGE 1 Signed Report [id number] 07:12:00* Test Item Value Reference Range Interpretation Comments GLUBED (test code = GLUBED) 91 mg/dL 74-106 N Performed by certified bromination equipment operator at [facility] [id number]-[id number] 21:27:00* Test Item Value Reference Range Interpretation Comments TROPONIN-I (test code = TROPI) <0.015 ng/mL 0-0.045 N COMMENTS TO DE ALCOHOLIZER: COLLECT 3 HOURS AFTER PREVIOUS [id number] 20:57:00* Test Item Value Reference Range Interpretation Comments GLUBED (test code = GLUBED) 93 mg/dL 74-106 N Performed by certified bromination equipment operator at [facility] - MRI BRAIN W/O [id number] 20:16:00 FAX: Roxie Silva [phone] [place]: B St: ADM FAX: Stacey Martinez [phone] Name: MAXIMO GALVEZ [facility] : 1945 Age/S: 74/M [address] [facility] Unit #: [id number] Loc: [address] [place] [address] Phys: Roxie Silva NP Acct: [id number] Dis Date: Status: ADM IN PHONE #: [phone] Exam Date: 03/03/20191999 FAX #: [phone] Reason: TIA EXAMS: CPT CODE: [id number] MRI BRAIN W/O CONTRAST 40108 REASON FOR EXAM: TIA Exam Order Date: 03/03/2019 12 :38 PM Ordering: Roxie Silva NP Attending:Stacey Knott MD Location: Procedure: - MRI BRAIN W/O CO NTRAST Comparison: FINDINGS: Axial, sagittal, and co kendrick images of the head were obtained using T1, T2 weighted, inversion re covery, and gradient echo sequences. The diffusion images are within norm al limits without abnormal signal intensity to suggest acute infarct. No I V gadolinium was given. The sagittal images show normal pitu itary, cerebellum, and brain stem. No evidence of suprasellar mass. The axial T2, inversion recovery, and gradient echo images show no evidence of intra or extra axial mass. The ventricles, cisterns, and sulc i are unremarkable. No evidence of hemorrhage. Mild periventricular deep white matter disease. The cerebellar pontine angle area is within normal limits. There is no evidence of mass noted. The axial T1 images show no evidence of mass. The coronal images show wesley l optic chiasm. IMPRESSION: Chronic bilateral basal ganglia infa rcts. Nonspecific deep white matter disease. No acute findings at 2016 Reported and signed by: Riley Chopra M.D. PAGE 1 Signed Report (CONTINUED) FAX: Phil Silva [phone] [place]: B St: [facility] FAX: Stacey Martinez Name: MAXIMO GALVEZ [facility] : 1945 Age/S: 74/M [address] nit #: [id number] Loc: V.[address] [place] [address] Phys: Roxie Silva NP Acct: [id number] Dis Date: Status: ADM IN P YESENIA #: [phone] Exam Date: 03/03/20191999 FA X #: [phone] Reason: TIA EXAMS: CPT CODE: [id number] M RI BRAIN W/O CONTRAST 12245 <Continued> CC: Roxie Silva CYTOMETRY TECHNOLOGIST; Stacey Knott MD Technologist: Tricia Castaneda)(MR) Trnscrd Date/Time/By: 03/03/2019 (2015) : By: Elia.VTL Orig P rint D/T: S: 03/03/2019 (2018) PAGE 2 Signed Report [id number] 18:36:00* Test Item Value Reference Range Interpretation Comments TROPONIN-I (test code = TROPI) <0.015 ng/mL 0-0.045 N COMMENTS TO DE ALCOHOLIZER: COLLECT 3 HOURS AFTER PREVIOUS [id number] 16:55:00* Test Item Value Reference Range Interpretation Comments GLUBED (test code = GLUBED) 115 mg/dL 74-106 H Performed by certified bromination equipment operator at [facility] - CTA [id number] 15:33:00 Name: MAXIMO GALVEZ [facility] : 1945 Age/S: 74 / M [address] [facility] Unit #: [id number] Loc: [place] [address] Phys: Roxie Silva NP Acct: [id number] Dis Date: Status: ADM IN PHONE #: [phone] Exam Date: 03/03/2019 1303 FAX #: [phone] Reason: TIA EXAMS: CPT CODE: [id number] CTA NECK 37221 HISTORY: TIA TECHNIQUE: Cerebral and Cervical CT angiography was acquired in the axial plane after bolus IV administration of iodinated contrast. Multiplanar, maximum intensity projection (MIP), and volume rendered reconstructions were created on the 3-D workstation. Automated exposure control for dose reduction. COMPARISON: Noncontrast CT brain earlier today FINDINGS: There is atherosclerotic disease in the bilateral carotid bulbs but no significant stenosis. Atherosclerotic vascular calcification and luminal irregularity of the bilateral cavernous ICA segments. Bilateral petrous and supraclinoid ICA segments are patent. Normal enhancement of the bilateral ophthalmic arteries. Bilateral A1 and distal ALBERT segments are patent. Anterior communicating artery is present. Bilateral M1 and distal MCA branches are patent. No aneurysm. Bilateral distal vertebral arteries are patent although the left vertebral artery is hypoplastic compared to the right (likely representing normal anatomic variant). Basilar artery is patent. Bilateral PICAs and SCAs are patent. Normal a ppearance of the basilar tip. Bilateral P1 and distal SHOW WORKER segments are pat ent. Right posterior commuting artery is not visualized and may be aplasti c. Left posterior commuting artery is present. No aneurysm. Dural venous sinuses and proximal internal jugular veins are patent. Visualized brain parenchyma is unremarkable. No mass-effect or midline shift. No hydrocephalus. Visualized paranasal sinuses and mastoid air jane ls are clear. Regional osseous structures structures are intact. 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 The right posterior commut ing artery is not visualized and may be aplastic. Remainder of the intra cranial vessels are within normal limits. Location: A PAGE 1 Signed Report (CONTINUED) Name: MAXIMO GALVEZ [facility] DO B: 1945 Age/S: 74 / M [address] [facility] Unit #: [id number] Loc: [place] [address] Phys: Shi Silva NP Acct: [id number] D is Date: Status: ADM IN PHONE #: [phone] Exam Date: 03/03/2019 1303 FAX #: Reason: TIA EXAMS: CPT CODE: [id number] CTA NECK 25807 <Continued> at 1533 Reported and signed by: Josh Coy MD CC: Roxie Silva NP; Stacey Knott MD Technologist:Eladio Galindo RT(R),(MR),(CT) CTDI: DLP: Trnscb Date/Time: 03/03/2019 (1533) t.AUSTINR.RR31/t.AUSTINR.RR31 Orig Print D/T: S: 03/03/2019 (1536) PAGE 2 Signed Report - CTA [id number] 15:33:00 Name: MAXIMO GALVEZEL [facility] : 1945 Age/S: 74 / M [address] Unit #: [id number] Loc: [place] [address] Phys: Roxie Silva CYTOMETRY TECHNOLOGIST Acct: [id number] Dis Date: Status: ADM IN PHONE #: [phone] Exam Date: 03/03/2019 1303 FAX #: [phone] Reason: TIA EXAMS: CPT CODE: [id number] CTA HEAD 29723 HISTORY: TIA TECHNIQUE: Cerebral and Cervical CT angiography was acquired in the axial plane after bolus IV administration of iodinated contrast. Multiplanar, maximum intensity projection (MIP), and volume rendered reconstructions were created on the 3-D workstation. Automated exposure control for dose reduction. COMPARISON: Noncontrast CT brain earlier today FINDINGS: There is atherosclerotic disease in the bilateral carotid bulbs but no significant stenosis. Atherosclerotic vascular calcification and luminal irregularity of the bilateral cavernous ICA segments. Bilateral petrous and supraclinoid ICA segments are patent. Normal enhancement of the bilateral ophthalmic arteries. Bilateral A1 and distal ALBERT segments are patent. Anterior communicating artery is present. Bilateral M1 and distal MCA branches are patent. No aneurysm. Bilateral distal vertebral arteries are patent although the left vertebral artery is hypo plastic compared to the right (likely representing normal anatomic variant ). Basilar artery is patent. Bilateral PICAs and SCAs are patent. Normal a ppearance of the basilar tip. Bilateral P1 and distal SHOW WORKER segments are pat ent. Right posterior commuting artery is not visualized and may be aplasti c. Left posterior commuting artery is present. No aneurysm. Dural venous sinuses and proximal internal jugular veins are patent. Visualized brain parenchyma is unremarkable. No mass-effect or midline shift. No hydrocephalus. Visualized paranasal sinuses and mastoid air jane ls are clear. Regional osseous structures structures are intact. 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 The right posterior commut ing artery is not visualized and may be aplastic. Remainder of the intra cranial vessels are within normal limits. Location: A PAGE 1 Signed Report (CONTINUED) Name: MAXIMO GALVEZ [facility] B: 1945 Age/S: 74 / M [address] [facility] Unit #: [id number] Loc: [place] [address] Phys: Shi Silva NP Acct: [id number] D is Date: Status: ADM IN PHONE #: [phone] Exam Date: 03/03/2019 1303 FAX #: Reason: TIA EXAMS: CPT CODE: [id number] CTA HEAD 94269 <Continued> at 1533 Reported and signed by: Josh Coy MD CC: Roxie Silva CYTOMETRY TECHNOLOGIST; Stacey Knott MD Technologist:Eladio Galindo RT(R),(MR),(CT) CTDI: DLP: Trnscb Date/Time: 03/03/2019 (4393) t.SDR.RR31/t.SDR.RR31 Orig Print D/T: S: 03/03/2019 (0068) PAGE 2 Signed Report LIPID PROFILE (CORONARY RISK)2019-03-03 14:18:00* Test Item Value Reference Range Interpretation Comments TRIGLYCERIDES (test code = TRIG) 146 mg/dL 20-150 N CHOLESTEROL (test code = CHOL) 177 mg/dL 0-200 N CHOLESTEROL/HDL RATIO (test code = CHOLHDL) 2.0 RATIO 0-4.9 N RISK ASSOCIATED WITH CHOL/HDL RATIOS: Risk Male Female1/2 AVERAGE 3.43 3.27AVERAGE 4.97 4.442X AVERAGE 9.55 7.053X AVERAGE 23.39 11.04 REFERENCE VALUE IS RELATED TO RISK LEVELS ASRECOMMENDED BY THE JOANNE. HEART, LUNG, AND BLOOD INST. HDL CHOLESTEROL (test code = HDL) 60 mg/dL 40-60 N LIPOPROTEIN LDL (test code = LDL) 102 mg/dL 100-129 N RN PERSONNEL, CONTACT PHYSICIAN IMMEDIATELY IF THIS IS A STROKE, AMI OR CAROTID STENOSIS PATIENT WHEN THE LDL >100 (1ST OCCURENCE, THIS ADMISSION) Reference Interval: mg/dL mmol/L Optimal <100 <2.6Near/above optimal 100-129 2.6- 3.3Borderline High 130-159 3.4-4.1High 160-189 4.1-4.9Very High >=190 >=4.9========= This LDL result is a direct measurement.========= - XR CHEST 1 [id number] 12:08:00 FAX: Bernardo Quesada MD [phone] [place]: [address] St: ADM Name: MAXIMO AMAYA [facility] : [birth year] Age/S: 74/M [address] [facility] Unit #: [id number] Loc: [place] [address] Phys: Bernardo Quesada MD Acct: [id number] Dis Date: Status: ADM IN PHONE #: [phone] Exam Date: 03/03/2019 1115 FAX #: [phone] Reason: CODE STROKE EXAMS: CPT CODE: [id number] XR CHEST 1 V 73103 REASON FOR EXAM: CODE STRO KE Exam Order Date: 03/03/2019 11:03 AM Ordering M.D. : Bernardo Quesada MD PROCEDURE: - XR CHEST 1 V COMPAR WILLIE: 2 view chest x-ray February 28, 2014 FINDINGS: There are patchy opacities in the mid to lower lungs bilaterally and the left co stophrenic recess is not clearly visualized. Upper lungs are clear. Cardiomediastinal silhouette is normal in size for technique. The mediastinal contours are within normal limits. No acute musculoske letal abnormality. The visualized upper abdomen is within normal l imits. IMPRESSION: Bibasilar opacities may repre sent any combination of atelectasis, aspiration, and pneumonia. Addition ally small left sided pleural effusion cannot be excluded. The upper jazlyn gs are clear. Location: [facility] at 1208 Reported and sig porter by: Josh Coy MD CC: Bernardo Quesada MD Technologist: Siria Johnson(R) Trnscrd Date/Time/By: 03/03/2019 (1208) : By: [id number] Orig Print D/ T: S: 03/03/2019 (4902) PAGE 1 Si gned Report BASIC METABOLIC [id number] 11:41:00* Test Item Value Reference Range Interpretation Comments SODIUM (test code = NA) 139 mmol/L 136-145 N POTASSIUM (test code = K) 3.8 mmol/L 3.5-5.1 N CHLORIDE (test code = CL) 102.0 mmol/L 98-107 N CARBON DIOXIDE (test code = CO2) 30.0 mmol/L 21-32 N ANION GAP (test code = GAP) 10.8 10-20 N GLUCOSE (test code = GLU) 145 mg/dL 74-106 H BLOOD UREA NITROGEN (test code = BUN) 14 mg/dL 7-18 N GLOMERULAR FILTRATION RATE (test code = GFR) 59 mL/min >=60 Estimated GFR by using Modified MDRD formula.Chronic kidney disease is defined as either kidney damageor GFR <60 mL/min/1.73 m2 for >3 months. CREATININE (test code = CREAT) 1.20 mg/dL 0.7-1.3 N BUN/CREATININE RATIO (test code = BUN/CREA) 11.9 10-20 N CALCIUM (test code = CA) 9.2 mg/dL 8.5-10.1 N [id number] 11:41:00* Test Item Value Reference Range Interpretation Comments TROPONIN-I (test code = TROPI) <0.015 ng/mL 0-0.045 N BASIC METABOLIC [id number] 11:33:00* Test Item Value Reference Range Interpretation Comments SODIUM (test code = NA) 139 mmol/L 136-145 N POTASSIUM (test code = K) 3.8 mmol/L 3.5-5.1 N CHLORIDE (test code = CL) 102.0 mmol/L 98-107 N CARBON DIOXIDE (test code = CO2) mmol/L 21-32 ANION GAP (test code = GAP) 10-20 GLUCOSE (test code = GLU) mg/dL 74-106 BLOOD UREA NITROGEN (test code = BUN) mg/dL 7-18 GLOMERULAR FILTRATION RATE (test code = GFR) mL/min >=60 CREATININE (test code = CREAT) mg/dL 0.7-1.3 BUN/CREATININE RATIO (test code = BUN/CREA) 10-20 CALCIUM (test code = CA) mg/dL 8.5-10.1 [id number] 11:33:00* Test Item Value Reference Range Interpretation Comments TROPONIN-I (test code = TROPI) ng/mL 0-0.045 CBC W/AUTO [id number] 11:28:00* Test Item Value Reference Range Interpretation Comments WHITE BLOOD CELL (test code = WBC) 6.1 K/mm3 4.5-12.5 N RED BLOOD CELL (test code = RBC) 3.87 mill/mm3 4.0-5.8 L HEMOGLOBIN (test code = HGB) 12.1 gram/dL 13.0-17.5 L HEMATOCRIT (test code = HCT) 37.3 % 42.0-52.0 L MEAN CELL VOLUME (test code = MCV) 96.4 fL 80-98 N MEAN CELL HGB (test code = MCH) 31.3 picogram 27.0-33.0 N MEAN CELL HGB CONCETRATION (test code = MCHC) 32.4 gram/dL 33.0-36. 0 L RED CELL DISTRIBUTION WIDTH (test code = RDW) 12.9 % 11.6-16. 2 N RED CELL DISTRIBUTION WIDTH SD (test code = RDW-SD) 45.7 fL 37 .0-51.0 N PLATELET COUNT (test code = PLT) 230 K/mm3 150-450 N MEAN PLATELET VOLUME (test code = MPV) 9.8 fL 6.7-11.0 N NEUTROPHIL % (test code = NT%) 61.9 % 39.0-69.0 N IMMATURE GRANULOCYTE % (test code = IG%) 0.5 % 0.0-5.0 N LYMPHOCYTE % (test code = LY%) 25.1 % 25.0-55.0 N MONOCYTE % (test code = MO%) 7.8 % 0.0-10.0 N EOSINOPHIL % (test code = EO%) 3.0 % 0.0-5.0 N BASOPHIL % (test code = BA%) 1.7 % 0.0-1.0 H NUCLEATED RBC % (test code = NRBC%) 0.0 % 0-0 N NEUTROPHIL # (test code = NT#) 3.76 K/mm3 1.8-7.7 N IMMATURE GRANULOCYTE # (test code = IG#) 0.03 x10 3/uL 0-0.03 N LYMPHOCYTE # (test code = LY#) 1.52 K/mm3 1.0-5.0 N MONOCYTE # (test code = MO#) 0.47 K/mm3 0-0.8 N EOSINOPHIL # (test code = EO#) 0.18 K/mm3 0.0-0.5 N BASOPHIL # (test code = BA#) 0.10 K/mm3 0.0-0.2 N NUCLEATED RBC # (test code = NRBC#) 0.00 K/mm3 0.0-0.1 N MANUAL DIFF REQUIRED (test code = MDIFF) NO PROTHROMBIN [id number] 11:26:00* Test Item Value Reference Range Interpretation Comments PROTHROMBIN TIME PATIENT (test code = PTP) 11.2 seconds 9.0-14.0 N INTERNATIONAL NORMAL RATIO (test code = INR) 1.0 0.8-1.2 N The therapeutic range for oral anticoagulant therapy formost indications is an international normalized ratio (INR)of between 2.0 and 3.0. The recommended therapeutic INRrange for various clinical situations is listed below: Clinical Situation INR range Pulmonary e mbolism treatment (2.0-3.0)Venous thrombosis treatmentVenous thrombosis prophylaxis (high risk surgery)Prevention of systemic embolism from: Acute myocardial infarction Valvular heart disease Atrial fibrillation Mechanical prosthetic heart valves (2.5-3.5) IS PATIENT ON ANTICOAGULANTS? NTHROMBOPLASTIN TIME [id number] 11:26:00* Test Item Value Reference Range Interpretation Comments THROMBOPLASTIN TIME PARTIAL (test code = PTT) 29.0 seconds 25.0-36. 5 N IS PATIENT ON ANTICOAGULANTS? N- CT HEAD/BRAIN W/O [id number] 11:16:00 Name: MAXIMO GALVEZ [facility] : 1945 Age/S: 74 / M [address] [facility] Unit #: [id number] Loc: [place] [address] Phys: Gamaliel Quesada MD Acct: [id number] Di s Date: Status: PRE ER PHONE #: [phone] Exam Date: 03/03/2019 1103 FAX #: Reason: R sided weaness and numbness EXAMS: CPT CODE: [id number] CT HEAD/BRAIN W/O CONT 15632 HISTORY: R sided weaness and numbness TECHNIQUE: Noncontrast 2.[address] of the head. Examination acquired within 24 hours of arrival. Automated exposure contro l for dose reduction. COMPARISON: Noncontrast CT brain 2014 FINDINGS: No lacerations or contusions o f the scalp or facial soft tissues. Calvarium and skull base are intact. No acute hemorrhage. No intracranial mass, mass effect, or midline shift. No effacement of the sulci or valdovinos-white matter interface. Cortical atrophy with moderate ventriculomegaly and microvascular ischemic changes of the white matter appear to have progressed since the p rior exam. There are also small hypodense lesions in the bilateral thalami which may represent lacunar infarcts. Visualized paranasal sinuse s are clear. Mastoid air cells and middle ear cavities are clear. Prior lens extraction bilaterally. IMPRESSION: No acute intracranial hemorrhage or mass effect or large vascular territorial infarct. Diffuse cortical atrophy with microvascular isc hemic changes appear to have progressed since the prior exam in 2014. Small hypodense lesions in the bilateral thalami may represent lacunar infarcts. Location: [facility] at 1116 Reported and si gned by: Josh Coy MD PAGE 1 Signed Report (CONTINUED) Name: MAXIMO GALVEZ [facility] : 1945 Age/S: 74 / M [address] [facility] Unit #: [id number] Loc: [place] [address] Phys: Bernardo Quesada MD Acct: [id number] Dis Date: Status: PRE ER PHONE #: [phone] Exam Date: 03/03/2019 1103 FAX #: [phone] Reason: R sided weaness and numbness EXAMS: CPT CODE: [id number] CT HEAD/BRAIN W/O CONT 97710 < Continued> CC: Bernardo Quesada MD Technologist:Karina Plascencia RT(R),CT CTDI: DLP: Trnscb Date/Time: 03/03/2019 (1116) t.SDR.RR31 Orig Print D/T: S: 03/03/2019 (1119) PAGE [address] MAXIO FAC/PARANAS [id number] 14:40:00 [place] [address] Patient Name: MAXIMO GALVEZ MR #: [id number] : 1945 Age/Sex: 73/M Req #: [id number] Adm Physician: Ordered by: ARIELLE TYLER CYTOMETRY TECHNOLOGIST Report #: [id number] Location: CT Room/Bed: Procedure: [id number] CT/CT MAXIO FAC/PARANAS WO Exam Date: 06/01/18 Exam Time: 0900 REPORT STATUS: Signed Hist ory: Maxillary sinusitis Comparison studies: None Technique: Axial nadine ges were obtained through the paranasal sinuses. Coronal and sagittal images r econstructed from the axial data. Radiation dose: Total DLP: 295 mGy*cm. Estim ated effective dose: DLP x 0.015 Intravenous contrast: None Findings: Right anterior complex: Frontal sinus: Clear aside from mild mucosal thicke carmen in the anteroinferior sinus. Frontonasal recess: Patent. Anterior eth moid air cells: Clear. Ostiomeatal unit: Maxillary ostium is narrowed by mucos al thickening but is patent. The ethmoid infundibulum and hiatus semilunaris a re likewise patent. Maxillary sinus: Partially opacified with peripheral mucos al thickening, greatest along the alveolar recess. Left anterior complex: Frontal sinus: Clear. Frontonasal recess: Patent. Anterior ethmoid air ce lls: Mild mucosal thickening otherwise clear. Ostiomeatal unit: Maxillary osti um narrowed by mucosal thickening but patent. The ethmoid infundibulum and hia tus semilunaris are likely patent. Maxillary sinus: Peripheral mucosal thicken ing predominantly along the alveolar recess. Posterior complex: Left sp henoid sinus: Clear. Right sphenoid sinus: Contains small nonspecific frothy s ecretions or debris. Clear. Sphenoethmoidal recesses: Clear. Posterior ethm oid air cells: Clear. Other: Nasal vestibule and cavity: Patent Neto al septum: Deviated to the patient's right. Agger Nasi: Clear bilaterally. T urbinates: Non-aerated bilaterally. Leena cells: None Lamina papyracea: I ntact. Cribriform plates: Approximate 3 to 4 mm on the right and 4 to 5 mm on the left below the level of the fovea ethmoidalis. Olfactory recesses: Clear Optic canals: Not dehiscent On[place] cells: None Internal carotid canals: No t dehiscent. Both carotid canal slightly bulge into the left sphenoid sinus wi th air covered by thin bony plates. Sphenoid sinuses: Asymmetric with dominant left sinus. The lateral recesses are not aerated. The septum inserts to the r ight of midline and inserts along the anterior wall the right cavernous caroti d canal. Orbits: No abnormalities. Bones: No fractures or lytic or blasti c lesions. Temporal bones: No gross abnormalities. Dentition: Edentulous maxilla. Multiple absent mandibular teeth with mandibular dental caries I ncluded brain: Mild generalized cerebral volume loss with nonspecific perivent ricular hypodensities which may reflect chronic microvascular ischemic changes . Scattered calcified atherosclerosis in the carotid siphons, and dominant rig ht intradural vertebral artery and in the basilar artery with mild vertebrobas ilar dolichoectasia. Incidental findings: Lens replacements for previous cataract surgery. Calcified atherosclerosis in the proximal left cervical int ernal carotid artery. IMPRESSION: 1. Nonspecific inflammatory mucos al thickening in the maxillary sinuses, right inferior frontal sinus and left anterior ethmoids with small nonspecific debris or secretions in the right sph enoid sinus. 2. Sinus drainage pathways are patent. 3. Rightward nasal sep dickson deviation. Signed by: Dr. Andrew Hagen M.D. on 06/01/2018 3:02 PM Dictated By: ANDREW HAGEN MD 1502 Transcribed By: MAT on 06/01/18 1502 COPY TO: ARIELLE HOOKS NP
[2020-02-11 21:04] LABS: BASOPHILS # (AUTO) 0.1 (0.0-0.1); BASOPHILS % 1.4 % (0.0-1.0); EOSINOPHILS # (AUTO) 0.1 (0.0-0.4); EOSINOPHILS % 1.2 % (0.0-6.0); HEMOGLOBIN 11.2 g/dL (14.0-18.0); LYMPHOCYTES % 14.3 % (18.0-39.1); MEAN CORPUSCULAR VOLUME 88.6 fL (81-99); MONOCYTES # (AUTO) 0.6 (0.2-0.8); MONOCYTES % 8.9 % (4.4-11.3); NEUTROPHILS # (AUTO) 4.9 (2.1-6.9); NEUTROPHILS % 73.9 % (38.7-80.0); PLATELET COUNT 256 x10e3/uL (140-360); RED BLOOD COUNT 3.61 x10e6/uL (4.3-5.7); RED CELL DISTRIBUTION WIDTH 12.5 % (11.7-14.4)
[2020-02-11 21:22] LABS: ALANINE AMINOTRANSFERASE 16 IU/L (0-55); ALBUMIN 3.8 g/dL (3.5-5.0); ALBUMIN/GLOBULIN RATIO 1.2 (0.8-2.0); ALKALINE PHOSPHATASE 70 IU/L (40-150); ANION GAP 13.5 mmol/L (8-16); BLOOD UREA NITROGEN 8 mg/dL (7-26); BUN/CREATININE RATIO 11 (6-25); CALCIUM 8.8 mg/dL (8.4-10.2); CARBON DIOXIDE 24 mmol/L (22-29); CHLORIDE 87 mmol/L (98-107); CREATINE KINASE 125 IU/L (30-200); CREATININE, SERUM 0.76 mg/dL (0.72-1.25); EST GLOMERULAR FILTRATION RATE > 60 ML/MIN (60-); GLUCOSE 115 mg/dL (74-118); POTASSIUM 4.5 mmol/L (3.5-5.1); SODIUM 120 mmol/L (136-145)
--- NOTE | 2020-02-11 21:27 | Emergency Department Note ---
History of Present Illnes History of Present Illness Chief Complaint: General Medicine Complaints History of Present Illness This is a 74 year old male PRESENTS TO ED WITH REPORT OF AMS SINCE APPROX 1000 AM THIS MORNING; PT ORIENTED TO PERSON AND PLACE; HE STATES HIS CALLED THE AMBULANCE BECAUSE "I AM SICK IN THE HEAD" DENIES ANY OTHER SYMPTOMS. 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 Arrival Mode: [place] Onset (how long ago): hour(s) (10) Location: NONE Quality: REPORTED CONFUSION Radiation: Reports non-radiation Severity: mild Onset quality: unable to specify Duration (how long): hour(s) (10) Timing of current episode: unable to specify Progression: unchanged Chronicity: recurrent Context: Denies recent illness, Denies recent surgery, Denies trauma/injury Relieving factors: none Exacerbating factors: none Associated symptoms: Reports denies other symptoms Treatments prior to arrival: none Past Medical/Family History Physician Review I have reviewed the patient's past medical and family history. Any updates have been documented here. Past Medical History Recent Fever: No Clinical Suspicion of Infectio: Yes New/Unexplained Change in Ment: Yes Past Medical History: Hypertension, Hyperlipedemia Other Medical History: SEASONAL ALLERGIES PULMONARY FIBROSIS Past Surgical History: Cataract Removal Other Surgery: cataract sx Social History Smoking Cessation: Never Smoker Alcohol Use: None Any Illegal Drug Use: No Family History Family history of heart diseas: No Other Last Tetanus: UTD Review of Systems Review of Systems Constitutional: Reports no symptoms EENTM: Reports no symptoms Cardiovascular: Reports no symptoms Respiratory: Reports no symptoms Gastrointestinal: Reports no symptoms Genitourinary: Reports no symptoms Musculoskeletal: Reports no symptoms Integumentary: Reports no symptoms Neurological: Reports as per HPI Psychological: Reports no symptoms Endocrine: Reports no symptoms Hematological/Lymphatic: Reports no symptoms Review of other systems: All other systems negative Physical Exam Related Data Allergies: Coded Allergies: No Known Drug Allergies (Verified Allergy, Mild, 11/09/09) Triage Vital Signs Vital Signs Date Time Temp Pulse Resp B/P (MAP) Pulse Ox O2 Delivery O2 Flow Rate FiO2 02/11/20 20:56 98.8 73 18 197/82 100 Room Air Vital signs reviewed: Yes Physical Exam CONSTITUTIONAL Constitutional: Present well-developed, Present well-nourished; Absent distressed HENT HENT: Present normocephalic, Present oropharynx clear/moist, Present nose n ormal, Present other (ABRASIONA AND CONTUSION TO POSTERIOR SCALP) HENT L/R: Present left ext ear normal, Present right ext ear normal EYES Eyes: Reports PERRL, Reports conjunctivae normal NECK Neck: Present ROM normal PULMONARY Pulmonary: Present effort normal, Present breath sounds normal CARDIOVASCULAR Cardiovascular: Present regular rhythm, Present heart sounds normal, Present capillary refill normal, Present normal rate GASTROINTESTINAL Abdominal: Present soft, Present nontender, Present bowel sounds normal GENITOURINARY Genitourinary: Present exam deferred SKIN Skin: Present warm, Present dry MUSCULOSKELETAL Musculoskeletal: Present ROM normal NEUROLOGICAL Neurological: Present alert, Present no gross motor or sensory deficits, Present other (PT ONLY DISORIENTED TO TIME, DOES ANSWER ALL OTHER QUESTIONS APPROPRIATELY) PSYCHOLOGICAL Psychological: Present mood/affect normal, Present judgement normal Results Laboratory Result Diagram: 02/11/20204902/11/202049 Laboratory Laboratory Tests Test 02/11/20 20:50 White Blood Count 6.63 x10e3/uL (4.8-10.8) Red Blood Count 3.61 x10e6/uL (4.3-5.7) Hemoglobin 11.2 g/dL (14.0-18.0) Hematocrit 32.0 % (38.2-49.6) Mean Corpuscular Volume 88.6 fL (81-99) Mean Corpuscular Hemoglobin 31.0 pg (28-32) Mean Corpuscular Hemoglobin Concent 35.0 g/dL (31-35) Red Cell Distribution Width 12.5 % (11.7-14.4) Platelet Count 256 x10e3/uL (140-360) Neutrophils (%) (Auto) 73.9 % (38.7-80.0) Lymphocytes (%) (Auto) 14.3 % (18.0-39.1) Monocytes (%) (Auto) 8.9 % (4.4-11.3) Eosinophils (%) (Auto) 1.2 % (0.0-6.0) Basophils (%) (Auto) 1.4 % (0.0-1.0) Neutrophils # (Auto) 4.9 (2.1-6.9) Lymphocytes # (Auto) 1.0 (1.0-3.2) Monocytes # (Auto) 0.6 (0.2-0.8) Eosinophils # (Auto) 0.1 (0.0-0.4) Basophils # (Auto) 0.1 (0.0-0.1) Absolute Immature Granulocyte (auto 0.02 x10e3/uL (0-0.1) Sodium Level 120 mmol/L (136-145) Potassium Level 4.5 mmol/L (3.5-5.1) Chloride Level 87 mmol/L (98-107) Carbon Dioxide Level 24 mmol/L (22-29) Anion Gap 13.5 mmol/L (8-16) Blood Urea Nitrogen 8 mg/dL (7-26) Creatinine 0.76 mg/dL (0.72-1.25) Estimat Glomerular Filtration Rate > 60 ML/MIN (60-) BUN/Creatinine Ratio 11 (6-25) Glucose Level 115 mg/dL (74-118) Calcium Level 8.8 mg/dL (8.4-10.2) Total Bilirubin 0.2 mg/dL (0.2-1.2) Aspartate Amino Transf (AST/SGOT) 22 IU/L (5-34) Alanine Aminotransferase (ALT/SGPT) 16 IU/L (0-55) Alkaline Phosphatase 70 IU/L (40-150) Creatine Kinase 125 IU/L (30-200) Total Protein 7.1 g/dL (6.5-8.1) Albumin 3.8 g/dL (3.5-5.0) Globulin 3.3 g/dL (2.3-3.5) Albumin/Globulin Ratio 1.2 (0.8-2.0) Imaging Imaging results reviewed: Yes Impressions Procedure: [id number] DX/CHEST SINGLE (PORTABLE) Exam Date: 02/11/20 Exam Time: 2124 REPORT STATUS: Signed EXAMINATION: CHEST SINGLE (PORTABLE) INDICATION: ^confusion ^[id number] ^2124 ^Y COMPARISON: 01/18/2020 FINDINGS: AP view TUBES and LINES: None. LUNGS: Limited by low lung volumes. Diffuse bilateral airspace opacities. Changes of lower lung garcia, related to interstitial lung disease. PLEURA: No significant pleural effusion or pneumothorax. HEART AND MEDIASTINUM: The cardiomediastinal silhouette is unremarkable. BONES AND SOFT TISSUES: No acute osseous lesion. Soft tissues are unremarkable. UPPER ABDOMEN: No free air under the diaphragm. IMPRESSION: Diffuse bilateral airspace opacities, representing edema and/or pneumonia. Changes of lower lung garcia, related to interstitial lung disease. Signed by: Dr. Marques Nelson MD on 02/11/2020 9:49 PM Dictated By: MARQUES NELSON MD 48 Transcribed By: MAT on 02/11/202148 COPY TO: RO ELIZALDE MD~ Procedure: [id number] CT/CT BRAIN WO Exam Date: 02/11/20 Exam Time: 2114 REPORT STATUS: Signed EXAMINATION: Head CT without contrast. HISTORY:Altered mental status. COMPARISON:CT brain from 01/20/2020. TECHNIQUE: Multidetector axial images were obtained from the foramen magnum to the vertex without contrast. The images were reconstructed using brain and bone algorithms. Thin section brain images were reformatted into coronal and sagittal planes. Dose modulation, iterative reconstruction, and/or weight based adjustment of the mA/kV was utilized to reduce the radiation dose to as low as reasonably achievable. Intravenous contrast: None IMAGE QUALITY: Acceptable. FINDINGS: Skull/scalp: No lytic or blastic. lesions. No surgical changes. Parenchyma: Unchanged nonspecific bilateral frontoparietal confluent periventricular, patchy and confluent subcortical and deep white matter hypodensities are likely related to small vessel ischemic changes. Chronic lacunar infarct in the left thalamocapsular region. No acute hemorrhage, mass or acute major vascular territorial infarct. Arteries: No density suggestive of thrombosis. 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 Dural sinuses: No abnormal density suggestive of thrombosis. Ventricles: Moderate compensated dilatation due to volume loss. No acute hydrocephalus. Extra-axial spaces: Unchanged prominent prepontine and premedullary cistern may be secondary to underlying arachnoid cyst or due to ectatic course of vertebrobasilar vessels. Brain volume: Normal for age. Craniocervical junction: No mass, Chiari malformation, or basilar invagination. Sella: Partial empty sella. Paranasal/mastoid sinuses: Imaged portions unremarkable. IMPRESSION: No acute intracranial abnormality. No change since CT brain from 01/20/2020. Chronic findings: 1. Diffuse supratentorial white matter microvascular ischemic changes. 2. Chronic lacunar infarct in left thalamocapsular region. 3. Mild generalized cerebral volume loss. Signed by: Dr. Marline Maza M.D. on 02/11/2020 9:41 PM Dictated By: MARLINE MAZA MD 40 Transcribed By: MAT on 02/11/202140 COPY TO: RO ELIZALDE MD~ Procedures 12 Lead ECG Interpretation ECG Interpretation : ECG: ECG 1 Lathe Scalper Operator: Interpreted by ED physician Date: Feb 11, 2020 Time: 20:59 Rhythm: sinus rhythm Rate: normal BPM: 72 QRS axis: normal ST segments normal: Yes T waves normal: Yes Other findings: LVH Q waves: III, aVF, V1 Clinical Impression: abnormal ECG Assessment & Plan Medical Decision Making MDM PT WITH CONFUSION AND H/O HYPONATREMIA CBC, CMP, EKG, CXR, CT BRAIN,UA ORDERED TO EVAL FOR HYPONATREMIA, UTI, PNEUMONIA, INTRACRANIAL ABNORMALITY, I SPOKE WITH DR VIRGILIO BEARD, PLACE IN ICU AND FLUID RESTRICT TO 1 LITER FLUID PER DAY Assessment & Plan Final Impression: (1) Hyponatremia (2) Weakness Depart Disposition: ADMITTED Last Vital Signs Date Time Temp Pulse Resp B/P (MAP) Pulse Ox O2 Delivery O2 Flow Rate FiO2 02/11/20 20:56 98.8 73 18 197/82 100 Room Air Home Meds Reported Medications Lisinopril (Lisinopril) 40 Mg Tablet, 1 TAB PO DAILY 05/22/11 RO ELIZALDE MD Feb 11, 2020 21:27
--- NOTE | 2020-02-11 21:44 | Diagnostic Imaging Report ---
EXAMINATION: Head CT without contrast. HISTORY:Altered mental status. COMPARISON:CT brain from 01/20/2020. TECHNIQUE: Multidetector axial images were obtained from the foramen magnum to the vertex without contrast. The images were reconstructed using brain and bone algorithms. Thin section brain images were reformatted into coronal and sagittal planes. Dose modulation, iterative reconstruction, and/or weight based adjustment of the mA/kV was utilized to reduce the radiation dose to as low as reasonably achievable. Intravenous contrast: None IMAGE QUALITY: Acceptable. FINDINGS: Skull/scalp: No lytic or blastic. lesions. No surgical changes. Parenchyma: Unchanged nonspecific bilateral frontoparietal confluent periventricular, patchy and confluent subcortical and deep white matter hypodensities are likely related to small vessel ischemic changes. Chronic lacunar infarct in the left thalamocapsular region. No acute hemorrhage, mass or acute major vascular territorial infarct. Arteries: No density suggestive of thrombosis. 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 Dural sinuses: No abnormal density suggestive of thrombosis. Ventricles: Moderate compensated dilatation due to volume loss. No acute hydrocephalus. Extra-axial spaces: Unchanged prominent prepontine and premedullary cistern may be secondary to underlying arachnoid cyst or due to ectatic course of vertebrobasilar vessels. Brain volume: Normal for age. Craniocervical junction: No mass, Chiari malformation, or basilar invagination. Sella: Partial empty sella. Paranasal/mastoid sinuses: Imaged portions unremarkable. IMPRESSION: No acute intracranial abnormality. No change since CT brain from 01/20/2020. Chronic findings: 1. Diffuse supratentorial white matter microvascular ischemic changes. 2. Chronic lacunar infarct in left thalamocapsular region. 3. Mild generalized cerebral volume loss. Signed by: Dr. Marline Maza M.D. on 02/11/2020 9:41 PM
[2020-02-11 21:48] LABS: CLARITY,URINE CLEAR (CLEAR); COLOR,URINE YELLOW (YELLOW); LEUKOCYTE ESTERASE ,URINE NEGATIVE (NEGATIVE); NITRITE,URINE NEGATIVE (NEGATIVE); PROTEIN,URINE DIPSTICK 2+ (NEGATIVE)
[2020-02-11 21:49] LABS: BILIRUBIN,URINE NEGATIVE (NEGATIVE); KETONES,URINE NEGATIVE (NEGATIVE); URINE UROBILINOGEN 0.2 mg/dL (0.2 - 1)
--- NOTE | 2020-02-11 21:52 | Diagnostic Imaging Report ---
EXAMINATION: CHEST SINGLE (PORTABLE) INDICATION: ^confusion ^[id number] ^2124 ^Y COMPARISON: 01/18/2020 FINDINGS: AP view TUBES and LINES: None. LUNGS: Limited by low lung volumes. Diffuse bilateral airspace opacities. Changes of lower lung garcia, related to interstitial lung disease. PLEURA: No significant pleural effusion or pneumothorax. HEART AND MEDIASTINUM: The cardiomediastinal silhouette is unremarkable. BONES AND SOFT TISSUES: No acute osseous lesion. Soft tissues are unremarkable. UPPER ABDOMEN: No free air under the diaphragm. IMPRESSION: Diffuse bilateral airspace opacities, representing edema and/or pneumonia. Changes of lower lung garcia, related to interstitial lung disease. Signed by: Dr. Marques Philip MD on 02/11/2020 9:49 PM
[2020-02-11 21:55] LABS: BACTERIA,URINE FEW /HPF; EPITHELIAL CELLS,URINE RARE /LPF; MUCUS,URINE FEW (RARE); RBC,URINE 0-5 /HPF (0-5); WBC,URINE (MAN) 0-5 /HPF (0-5)
[2020-02-11] MEDS ORDERED: SODIUM CHLORIDE FLUSH 10 ML SYR INJ PRN (22:30)
[2020-02-11] MEDS ORDERED: ONDANSETRON HCL INJ 2MG/ML 2ML 2 MG/ML VIAL IV PRN (22:30)
--- OUTSIDE RECORDS SUMMARY | 2020-02-11 22:49 | XMS REPORT | Continuity of Care Document ---
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 01/27/2019 GIL Sosa UNK Active 0 01/06/2013 [facility] OTHER Active 05/24/2011 [facility] Hearing loss (finding) Active Problem 11/12[facility]2019 [facility] Hypertensive disorder, systemic arterial (disorder) [facility] Medications Medication Details Route Status Patient Instructions Ordering Provider Order Date Source Naprosyn 500 mg oral tablet 50 0 mg, 1 tab, PO, BID, 14 tab, Substitution Allowed, TAB PO Active Wilfred howe 05/24/2011 [facility] acetaminophen-hydrocodone 500 mg-5 mg oral tablet 1-2 tab, PO, Q4-6H, PRN, 15 tab, Pain, Substitution Allowed, Maintenance PO Active [facility] 05/24/2011 [facility] Toradol 30 mg/mL injectable solution 60 mg, 2 mL, Route: IM, Drug form: INJ, ONCE, Start date: 05/24/11 8:34:00, Stop date: 05/24/11 8:34:00 IM No Longer Active [facility] 05/24/2011 [facility] acetaminophen-hydrocodone 325 mg-5 mg oral tablet 1 tab, Route: PO, Drug Form: TAB, ONCE, STAT, Start date: 05/24/11 8:34:00, Stop date: 05/24/11 8:34:00 PO No Longer Active [facility] 05/24/2011 [facility] Allergies, Adverse Reactions, Alerts Substance Category Reaction Severity Reaction type Status Date Reported Comments Source No Known Medication Allergies Assertion Drug aller gy [facility] Immunizations No Data Provided for This Section [...] polyposis. Kvng Hall MD On 11/10/2019 17:12:51; [id number] 11/10/2019 [facility] Spine lumbar 2 or 3 views DX [...] Date Comments Source Heart Rate 89 05/24/2011 [facility] Temperature Oral (F) 98.3 F 05/24/2011 [facility] Respitory Rate 20 05/24/2011 [facility] Diastolic (mm Hg) 70 05/24/2011 [facility] Systolic (mm Hg) 136 05/24/2011 [facility] Heart Rate 88 05/24/2011 [facility] Diastolic (mm Hg) 71 05/24/2011 [facility] Temperature Oral (F) 98.1 F 05/24/2011 [facility] Respitory Rate 18 05/24/2011 [facility] Systolic (mm Hg) 138 05/24/2011 [facility] Weight 81.818 05/24/2011 [facility] Height 170.18 cm 05/24/2011 [facility] Encounters Location Location Details Encounter Type Encounter Number Reason For Visit Attending Provider ADM Date DC Date Status Source [facility] Emergency [id number] JASMINA NRIAGU 05/24/2011 05/24/2011 [facility] [place] [facility] [id number] Jason Parikh [facility]2019 [facility] [id number] Rolando Leiva 11/10/2019 11/11/2019 [facility] LUIS [id number] BECKIEK TERENCE HALE Active [facility] Procedures Procedure Code Date Perfomer Comments [id number] No Data Provided [...] Cessation Counseling No entered on: 04/04/13 04/04/2013 [facility] Family History No Data Provided for This Section Advance Directives No Data Provided for This Section Functional Status No Data Provided for This Section
--- OUTSIDE RECORDS SUMMARY | 2020-02-11 22:50 | XMS REPORT | Continuity of Care Document ---
Author Author [facility] t Organization [facility] Address [address] [place] [address] Phone Unavailable Care Team Providers Care Slitting And Shipping Supervisor Name Role Phone MD Deandra PARIKH MD PCP Sandra ELIZALDE Attphys Unavailable VIRGILIO WONG Attphys Unavailable Nicola Leiva Attphys Grace Parikh Attphys ARIELLE TYLER Attphys Unavailable VIRGILIO WONG Admphys Unavailable Payers Payer Name Policy Type Policy Number Effective Date Expiration Date [facility] [id number] I [facility] Problems Condition Name Condition Details Condition Category Status Onset Date Resolution Date Last Treatment Date Treating Clinician Comments Source 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 Active 11/07/2019 [facility] tive 2019-11-07 00:00:00 2019-11-10 14:38:00 Deandra Pineda 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 Active 01/27/2019 DOMINICK Turner Diagnosis Active 2019-01-27 00:01:00 2019-01-27 10:28:00 Warner Pineda UNK UNK Active 01/06/2013 [facility] Diagnosis Active 2013-01-06 00:00:00 2013-04-04 09:03:00 M kandijuanbrandin dEwin OTHER OTHE R Active 05/24/2011 [facility] Active 2011-05-24 00:00:00 2011-05-24 09:01:00 [facility] Facial laceration Problem Active [facility] Hyponatremia Problem Active [facility] Weakness Problem Active [facility] Pain in both knees Problem Active [facility] Right wrist pain Problem Active [facility] Hearing loss (finding) Hear ing loss (finding) Active Problem 11/12/2019 [facility] Active 2019-11-12 22:48:33 Warner Pineda Hypertensive disorder, systemic arterial (disorder) Hypertensive disorder, systemic arterial (disorder) Active [facility] Active 2019-11-12 22:48:33 Warner Pineda Allergies, Adverse Reactions, Alerts Allergy Name Allergy Type Status Severity Reaction(s) Onset Date Inacti ve Date Treating Clinician Comments Source No Known Allergies DA Active U 2020-01-30 00:00:00 [facility] No Known Allergies DA Active U 2019-06-06 00:00:00 [facility] No Known Allergies DA Active U 2015-02-26 00:00:00 [facility] No Known Medication Allergies No Known Medication Allergies Active [facility] Edwin Social History Social Habit Start Date Stop Date Quantity Comments Source Social History 2013-04-04 15:43:17 2013-04-04 15:43:17 Warner Pineda Sex Ass[birth year] At 1945 00:00:00 1945 00:[birth year]:00 Male [facility] Medications Ordered Medication Name Filled Medication Name Start Date Stop Da te Current Medication? Ordering Clinician Indication Dosage Frequency Signature (SIG) Comments Components Source Naprosyn 500 mg oral tablet 2011-05-24 14:37:17 Yes Becki Dumaszik 500 mg, 1 tab, PO, BID, 14 tab, Substitution Allowed, TAB [facility] Edwin acetaminophen-hydrocodone 500 mg-5 mg oral tablet 14:37:16 Yes Becki Dumaszik 1-2 tab, PO , Q4-6H, PRN, 15 tab, Pain, Substitution Allowed, Maintenance [facility] Edwin Toradol 30 mg/mL injectable solution 2011-05-24 14:34:00 No Becki Dumasbrandenk 60 mg, 2 mL, Rou te: IM, Drug form: INJ, ONCE, Start date: 05/24/11 8:34:00, Stop date: 05/24/11 8:34:00 Mem oribrandin Sharmaann acetaminophen-hydrocodone 325 mg-5 mg oral tablet 14:34:00 No Becki Dumasgita 1 tab, Rout e: PO, Drug Form: TAB, ONCE, STAT, Start date: 05/24/11 8:34:00, Stop date: 05/24/11 8:34:00 [facility] Lisinopril Lisinopril Yes 1 Daily [facility] Amlodipine Besylate (Norvasc) 2.5 Mg TABLET Amlodipine Besylate (Norvasc) 2.5 Mg TABLET 2020-01-23 00:00:00 No 1 Daily [facility] Cefprozil Cefprozil 2020-01-23 00:00:00 No 1 Twice Daily [facility] Vital Signs Vital Name Observation Time Observation Value Comments Source Body Temperature 2020-01-23 09:00:00 98.1 [degF] [facility] Weight 2020-01-18 19:25:00 180 [lb_av] [facility] BMI (Body Mass Index) 2020-01-18 19:25:00 28.2 kg/m2 [facility] Heart Rate 2011-05-24 15:28:00 [facility] Temperature Oral (F) 2011-05-24 15:28:00 98.3 F [facility] Respitory Rate 2011-05-24 15:28:00 [facility] [place] Diastolic (mm Hg) 2011-05-24 15:28:00 Mem orial [facility] Systolic (mm Hg) 2011-05-24 15:28:00 Kyle rial [facility] Heart Rate 2011-05-24 14:17:00 [facility] Diastolic (mm Hg) 2011-05-24 14:17:00 Mem orial [facility] Temperature Oral (F) 2011-05-24 14:17:00 98.1 F [facility] [place] Respitory Rate 2011-05-24 14:17:00 [facility] Systolic (mm Hg) 2011-05-24 14:17:00 [facility] [place] Weight 2011-05-24 14:16:00 [facility] [place] Height 2011-05-24 14:16:00 170.18 cm [facility] [place] Procedures Procedure Date / Time Performed Performing Clinician [facility] e Computed tomography of brain without radiopaque contrast 2019-12 00:00:00 [facility] Computed tomography of chest without contrast 2020-01-19 00:00:0 0 [facility] Computed tomography of brain without radiopaque contrast 2019-12 00:00:00 [facility] CT maxillofacial area wo contrast 2020-01-18 00:00:00 [facility] Computed tomography of cervical spine without contrast 2019-12-28 3 00:00:00 [facility] X-ray of chest, two views 2020-01-18 00:00:00 [facility] Cataract surgery [facility] Plan of Care Planned Activity Planned Date Details Comments Source Instructions Pneumonia - Bacterial [facility] Encounters Start Date/Time End Date/Time Encounter Type Admission Type Attendi [facility] Emergency Department Facility Care Department Encounter ID Source 2019-11-10 14:28:00 2019-11-10 23:59:00 Outpatient Rolando Leiva [facility] [id number] 2019-11-10 14:28:00 2019-11-10 14:28:00 Outpatient [facility] [address] [facility] 2019-03-21 10:39:00 2019-03-26 23:59:00 Discharged [facility] [id number] [facility] 2019-01-27 10:09:00 2019-01-27 23:59:00 Outpatient Jason Parikh [facility] [id number] 2018-06-01 08:47:00 2018-06-01 08:47:00 Registered Clinic 3 ARIELLE TYLER [id number] [facility] Results Test Description Test Time Test Comments Results Result Comments Source CHEST SINGLE (PORTABLE) 2020-02-11 21:45:00 [facility] 1945 Sex: M [place] [address] Patient Name: MAXIMO GALVEZ MR #: [id number] : 1945 Age/Sex: 74/M Req #: [id number] Adm Physician: Ordered by: RO ELIZALDE MD Report #: [id number] Location: ER Room/Bed: Procedure: [id number] DX/CHEST SINGLE (PORTABLE) Exam Date: 02/11/20 Exam Time: 2124 REPORT STATUS: Signed EXAMINATION: CHEST SINGLE (PORTABLE) INDICATION: confusion 20200211 Y COMPARISON: 01/18/2020 FINDINGS: AP view TUBES and LINES: None. LUNGS: Limited by low lung volumes. Diffuse bilateral airspace opacities. Changes of lower lung garcia, related to interstitial lung disease. PLEURA: No significant pleural effusion or pneumothorax. HEART AND MEDIASTINUM: The cardiomediastinal silhouette is unremarkable. BONES AND SOFT TISSUES: No acute osseous lesion. Soft tissues are unremarkable. UPPER ABDOMEN: No free air under the diaphragm. IMPRESSION: Diffuse bilateral airspace opacities, representing edema and/or pneumonia. Changes of lower lung garcia, related to interstitial lung disease. Signed by: Dr. Samra Nelson MD on 02/11/2020 9:49 PM Dictated By: SAMRA NELSON MD 48 Transcribed By: MAT on 02/11/202148 COPY TO: RO ELIZALDE MD CT BRAIN WO 2020-02-11 21:34:00 [facility] 1945 Sex: M [facility] [address] [address] Patient Name: MAXIMO GALVEZ MR #: [id number] : 1945 Age/Sex: 74/M Req #: [id number] Adm Physician: Ordered by: RO ELIZALDE MD Report #: [id number] Location: ER Room/Bed: Procedure: [id number] CT/CT BRAIN WO Exam Date: 02/11/20 Exam Time: 2114 REPORT STATUS: Signed EXAMINATION: Head CT without contrast. HISTORY:Altered mental status. COMPARISON:CT brain from 01/20/2020. TECHNIQUE: Multidetector axial images were obtained from the foramen magnum to the vertex without contrast. The images were reconstructed using brain and bone algorithms. Thin section brain images were reformatted into coronal and sagittal planes. Dose modulation, iterative reconstruction, and/or weight based adjustment of the mA/kV was utilized to reduce the radiation dose to as low as reasonably achievable. Intravenous contrast: None IMAGE QUALITY: Acceptable. FINDINGS: Skull/scalp: No lytic or blastic. lesions. No surgical changes. Parenchyma: Unchanged nonspecific bilateral frontoparietal confluent periventricular, patchy and confluent subcortical and deep white matter hypodensities are likely related to small vessel ischemic changes. Chronic lacunar infarct in the left thalamocapsular region. No acute hemorrhage, mass or acute major vascular territorial infarct. Arteries: No density suggestive of thrombosis. 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 Dural sinuses: No abnormal density suggestive of thrombosis. Ventricles: Moderate compensated dilatation due to volume loss. No acute hydrocephalus. Extra-axial spaces: Unchanged prominent prepontine and premedullary cistern may be secondary to underlying arachnoid cyst or due to ectatic course of vertebrobasilar vessels. Brain volume: Normal for age. Craniocervical junction: No mass, Chiari malformation, or basilar invagination. Sella: Partial empty sella. Paranasal/mastoid sinuses: Imaged portions unremarkable. IMPRESSION: No acute intracranial abnormality. No change since CT brain from 01/20/2020. Chronic findings: 1. Diffuse supratentorial white matter microvascular ischemic changes. 2. Chronic lacunar infarct in left thalamocapsular region. 3. Mild generalized cerebral volume loss. Signed by: Dr. Rancho Maza M.D. on 02/11/2020 9:41 PM Dictated By: RANCHO MAZA MD 40 Transcribed By: MAT on 02/11/202140 COPY TO: RO ELIZALDE MD HEPATIC FUNCTION PANEL 2020-02-05 02:06:00 Test Item [...] range due to change in reagent. VITAMIN [id number] 02:06:00* Test Item Value Reference Range Interpretation Comments VITAMIN B12 (test code = VITB12) 546 pg/mL 193-986 N FOLIC [id number] 02:06:00* Test Item Value Reference Range Interpretation Comments FOLIC ACID (test code = FOL) 17.7 ng/mL 3.10-17.50 H THYROID STIMULATING [id number] 02:06:00* Test Item Value Reference Range Interpretation Comments THYROID STIMULATING HORMONE (test code = TSH) 0.362 uIU/mL 0.36-3.7 4 N TSH REFERENCE RANGES: EUTHYROID: 0.35 - 4.3 mIU/mL HYPO : > 5.5 mIU/mL HYPER : < 0.35 mIU/mL VITAMIN B6/[id number] 02:06:00* Test Item Value Reference Range Interpretation Comments VITAMIN B6/PYRIDOXINE (test code = VITB6) 11.3 ug/L 5.3-46.7 Performed At: [facility] [id number] Santizo MD Ph:[phone] VIT B1 WHOLE [id number] 02:06:00* Test Item Value Reference Range Interpretation Comments VIT B1 WHOLE BLOOD (test code = ONAI0ZX) 74.5 nmol/L 66.5-200.0 Performed At: [facility] [id number] Santizo MD Ph:[phone] HEPATIC FUNCTION [id number] 21:06:00* Test Item Value Reference Range Interpretation [...] range due to change in reagent. VITAMIN [id number] 21:06:00* Test Item Value Reference Range Interpretation Comments VITAMIN B12 (test code = VITB12) 546 pg/mL 193-986 N FOLIC [id number] 21:06:00* Test Item Value Reference Range Interpretation Comments FOLIC ACID (test code = FOL) 17.7 ng/mL 3.10-17.50 H THYROID STIMULATING [id number] 21:06:00* Test Item Value Reference Range Interpretation Comments THYROID STIMULATING HORMONE (test code = TSH) 0.362 uIU/mL 0.36-3.7 4 N TSH REFERENCE RANGES: EUTHYROID: 0.35 - 4.3 mIU/mL HYPO : > 5.5 mIU/mL HYPER : < 0.35 mIU/mL VITAMIN B6/[id number] 21:06:00* Test Item Value Reference Range Interpretation Comments VITAMIN B6/PYRIDOXINE (test code = VITB6) 11.3 ug/L 5.3-46.7 Performed At: [facility] [id number] Sanjai MD Ph:[phone] VIT B1 WHOLE [id number] 21:06:00* Test Item Value Reference Range Interpretation Comments VIT B1 WHOLE BLOOD (test code = XMBL0WC) nmol/L 87-280 BASIC METABOLIC [id number] 07:38:00* Test Item Value Reference Range Interpretation [...] CA) 8.2 mg/dL 8.5-10.1 L BASIC METABOLIC [id number] 12:20:00* Test Item Value Reference Range Interpretation Comments SODIUM (test code = NA) 135 mmol/L 136-145 L POTASSIUM (test code = K) 3.8 mmol/L 3.5-5.1 N CHLORIDE (test code = CL) 102.0 mmol/L 98-107 N CARBON DIOXIDE (test code = CO2) 28.0 mmol/L 21-32 N Previously reported result: 28.0 mmol/LEdited by: [email or web address] on 02/02/20:1220 ANION GAP (test code = [...] CA) 8.7 mg/dL 8.5-10.1 N BASIC METABOLIC [id number] 11:57:00* Test Item Value Reference Range Interpretation [...] code = CA) mg/dL 8.5-10.1 BASIC METABOLIC [id number] 11:57:00* Test Item Value Reference Range Interpretation [...] CA) 8.7 mg/dL 8.5-10.1 N CBC W/AUTO [id number] 11:45:00* Test Item Value Reference Range Interpretation [...] (test code = MDIFF) NO BASIC METABOLIC [id number] 11:30:00* Test Item Value Reference Range Interpretation [...] mg/dL 8.5-10.1 N - MRI BRAIN W/O [id number] 19:43:00 FAX: [place],Kvng J MD [phone] [place]: B St: ADM FAX: Roxie Silva [phone] Name: MAXIMO GALVEZ [facility] : 1945 Age/S: 74/M [address] [facility] Unit #: [id number] Loc: [place] [address] Phys: Roxie Silva NP Acct: [id number] Dis Date: Status: ADM IN PHONE #: [phone] Exam Date: 01/31/2020 1720 FAX #: [phone] Reason: AMS, TIA EXAMS: CPT CODE: [id number] MRI BRAIN W/O CONTRAST 75030 EXAM: MRI of the brain without contrast; [...] matter changes. 3. Moderate atrophy. Location code: [facility] Elec tronically Signed by John Cristobal on 020 at 1943 Reported and signed by: Corby Cristobal M.D. CC: Kvng Garcia MD; Roxie Silva NP Technologist: NICOLÁS MORELRT - MRI [facility] Date/Time/By: 01/31/2020 (1942) : By: Elia.[email or web address] Orig Print D/T: S: 01/31/2020 (1945) PAGE 1 Signed Report BASIC METABOLIC [id number] 08:26:00* Test Item Value Reference Range Interpretation [...] code = CA) 8.4 mg/dL 8.5-10.1 L [id number] 22:05:00* Test Item Value Reference Range Interpretation Comments SODIUM (test code = NA) 126 mmol/L 136-145 L SPECIMEN COMMENTS: pls obtain q6hr for th next 24hrs.AB [id number] 20:06:00* Test Item Value Reference Range Interpretation Comments AB TREPONEMA (test code = TREPAB) Nonreactive Index NonReactive HEPATIC FUNCTION [id number] 19:55:00* Test Item Value Reference Range Interpretation [...] range due to change in reagent. VITAMIN [id number] 19:55:00* Test Item Value Reference Range Interpretation Comments VITAMIN B12 (test code = VITB12) 546 pg/mL 193-986 N FOLIC [id number] 19:55:00* Test Item Value Reference Range Interpretation Comments FOLIC ACID (test code = FOL) 17.7 ng/mL 3.10-17.50 H THYROID STIMULATING [id number] 19:55:00* Test Item Value Reference Range Interpretation Comments THYROID STIMULATING HORMONE (test code = TSH) 0.362 uIU/mL 0.36-3.7 4 N TSH REFERENCE RANGES: EUTHYROID: 0.35 - 4.3 mIU/mL HYPO : > 5.5 mIU/mL HYPER : < 0.35 mIU/mL VITAMIN B6/[id number] 19:55:00* Test Item Value Reference Range Interpretation Comments VITAMIN B6/PYRIDOXINE (test code = VITB6) ng/mL 3-60 VIT B1 WHOLE [id number] 19:55:00* Test Item Value Reference Range Interpretation Comments VIT B1 WHOLE BLOOD (test code = QWVH1PZ) nmol/L 87-280 DRUGS OF ABUSE SCREEN [id number] 19:25:00* Test Item Value Reference Range Interpretation [...] (test code = METHAURN) NEGATIVE <300 ng/mL [id number] 19:14:00* Test Item Value Reference Range Interpretation Comments SODIUM (test code = NA) 124 mmol/L 136-145 L [facility]u lts [facility] [id number] [facility] 01/30/20 1914Critical results verified and read back by Nurse? Y HEPATIC FUNCTION [id number] 19:13:00* Test Item Value Reference Range Interpretation [...] range due to change in reagent. VITAMIN [id number] 19:13:00* Test Item Value Reference Range Interpretation Comments VITAMIN B12 (test code = VITB12) pg/mL 193-986 FOLIC [id number] 19:13:00* Test Item Value Reference Range Interpretation Comments FOLIC ACID (test code = FOL) ng/mL 3.10-17.50 THYROID STIMULATING [id number] 19:13:00* Test Item Value Reference Range Interpretation Comments THYROID STIMULATING HORMONE (test code = TSH) uIU/mL 0.36-3.7 4 VITAMIN B6/[id number] 19:13:00* Test Item Value Reference Range Interpretation Comments VITAMIN B6/PYRIDOXINE (test code = VITB6) ng/mL 3-60 VIT B1 WHOLE [id number] 19:13:00* Test Item Value Reference Range Interpretation Comments VIT B1 WHOLE BLOOD (test code = GMYZ6EF) nmol/L 87-280 [id number] 19:11:00* Test Item Value Reference Range Interpretation Comments AMMONIA (test code = AMM) 46 umol/L 11-32 H DRUGS OF ABUSE SCREEN [id number] 18:38:00* Test Item Value Reference Range Interpretation [...] (test code = METHAURN) <300 ng/mL UR NA,[id number] 17:59:00* Test Item Value Reference Range Interpretation Comments UR NA,RANDOM (test code = ALEX) 63 mmol/L 20-110 N UR OSMOLALITY [id number] 17:59:00* Test Item Value Reference Range Interpretation Comments UR OSMOLALITY RANDOM (test code = OSMOU) 254.5 mOsm/kg 48-962 N UR NA,[id number] 17:56:00* Test Item Value Reference Range Interpretation Comments UR NA,RANDOM (test code = ALEX) 63 mmol/L 20-110 N UR OSMOLALITY [id number] 17:56:00* Test Item Value Reference Range Interpretation Comments UR OSMOLALITY RANDOM (test code = OSMOU) mOsm/kg 48-962 [id number] 16:24:00* Test Item Value Reference Range Interpretation Comments GLUBED (test code = GLUBED) 105 mg/dL 74-106 N Performed by certified forwarder operator at [facility] - CTA [id number] 14:19:00 Name: MAXIMO GALVEZ [facility] : 1945 Age/S: 74 / M [address] Unit #: [id number] Loc: [place] [address] Phys: Roxie Silva TELETYPESETTER Acct: [id number] Dis Date: Status: ADM IN PHONE #: [phone] Exam Date: 01/30/2020 1224 FAX #: [phone] Reason: AMS, TIA EXAMS: CPT CODE: [id number] CTA NECK 07763 HISTORY: AMS, TIA TECHNIQUE: Cerebral and Cervical [...] the basilar tip. Bilateral P1 and distal [facility] C[facility] SPECIALIST segments are patent. 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 No aneu rysm. Dural venous sinuses and proximal internal jugular veins are patent. 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 Variant anatomy of the intracranial arteries with out occlusion or stenosis. Location: [facility] PAGE 1 Signed Report (CONTINUED) Name: MAXIMO MELO [facility] : 1945 A ge/S: 74 / M [address] [employer] Unit #: [id number] Loc : [place] [address] Phys: Roxie Silva NP Acct: [id number] Dis Date: Status: ADM IN PHONE #: [phone] Exam Date: 01/30/2020 1224 FAX #: [phone] Reaso n: AMS, TIA EXAMS: CPT CODE: [id number] CTA NECK 08778 <Continued> at 1419 Reported and signed by: Josh Cyo MD CC: Kvng Garcia MD; Roxie Silva NP Technologist:Eladio Galindo RT(R),(MR),(CT) CTDI: DLP: Trnscb Date/Time: 01/30/2020 (1418) t.SDR.RR31 Orig Print D/T: S: 01/30/2020 (1421) PAGE 2 Signed Report - CTA [id number] 14:19:00 Name: MAXIMO GALVEZ [facility] : 1945 Age/S: 74 / M [address] [facility] Unit #: [id number] Loc: [place] [address] Phys: Roxie Silva NP Acct: [id number] Dis Date: Status: ADM IN PHONE #: [phone] Exam Date: 01/30/2020 1224 FAX #: [phone] Reason: AMS, TIA EXAMS: CPT CODE: [id number] CTA HEAD 23833 HISTORY: AMS, TIA TECHNIQUE: Cerebral and Cervical [...] the basilar tip. Bilateral P1 and distal [facility] C[facility] SPECIALIST segments are patent. 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 No aneu rysm. Dural venous sinuses and proximal internal jugular veins are patent. 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 Variant anatomy of the intracranial arteries with out occlusion or stenosis. Location: [facility] PAGE 1 Signed Report (CONTINUED) Name: MAXIMO MELO [facility] : 1945 A ge/S: 74 / M [employer] Unit #: [id number] Loc : [place] [address] Phys: Roxie Silva NP Acct: [id number] Dis Date: Status: ADM IN PHONE #: [phone] Exam Date: 01/30/2020 1224 FAX #: [phone] Reaso n: AMS, TIA EXAMS: CPT CODE: [id number] CTA HEAD 15077 <Continued> at 1419 Reported and signed by: Josh Coy MD CC: Kvng Garcia MD; Roxie Silva NP Technologist:Eladio Galindo RT(R),(MR),(CT) CTDI: DLP: Trnscb Date/Time: 01/30/2020 (141) t.SDR.RR31 Orig Print D/T: S: 01/30/2020 (1422) PAGE 2 Signed Report URINALYSIS [id number] 13:09:00* Test Item Value Reference Range Interpretation [...] per HPF NONE Urine Source? Clean CatchURINALYSIS [id number] 13:09:00* Test Item Value Reference Range Interpretation [...] #/HPF NONE Urine Source? Clean CatchBASIC METABOLIC [id number] 04:27:00* Test Item Value Reference Range Interpretation Comments SODIUM (test code = NA) 121 mmol/L 136-145 LL Resu lts called to [id number] by STAR 01/30/20 0427Critical results verified and [...] = CA) 8.4 mg/dL 8.5-10.1 L PROTHROMBIN [id number] 03:45:00* Test Item Value Reference Range Interpretation [...] (2.5-3.5) IS PATIENT ON ANTICOAGULANTS? NTHROMBOPLASTIN TIME [id number] 03:45:00* Test Item Value Reference Range Interpretation Comments THROMBOPLASTIN TIME PARTIAL (test code = PTT) 27.4 seconds 23.0-37. 0 N IS PATIENT ON ANTICOAGULANTS? NCBC W/O [id number] 03:42:00* Test Item Value Reference Range Interpretation [...] fL 6.7-11.0 N - CT C-SPINE W/O [id number] 03:24:00 Name: MAXIMO GALVEZ [facility] : 1945 Age/S: 74 / M [address] Unit #: [id number] Loc: [place] [address] Phys: Kathy Go MD Acct: [id number] Dis Date: Status: REG ER PHONE #: [phone] Exam Date: 01/30/2020311 FAX #: [phone] Reason: Neck Pain EXAMS: CPT CODE: [id number] CT C-SPINE W/O CONTRAST 42624 AFTER HOURS SERVICE ON: 01/30/2020 3:23 AM [...] TATIANA CTDI: DLP: Trnscb Date/Time: 01/30/2020 (323) CindiMA50 Orig Print D/T: S: 01/30/2020 (0327) PAGE 1 Signed Report - CT HEAD/BRAIN W/O [id number] 03:20:00 Name: MAXIMO GALVEZ [facility] : 1945 Age/S: 74 / M [address] Unit #: [id number] Loc: [place] [address] Phys: Kathy Go MD Acct: [id number] Di s Date: Status: REG ER PHONE #: Exam Date: 01/30/2020311 FAX #: Reason: HEADACHE EXAMS: CPT CODE: [id number] CT HEAD/BRAIN W/O CONT 23827 AFTER HOURS SERVICE ON: 3:[address] Scan of the Brain [...] Technologist:RT TATIANA CTDI: DLP: Trnscb Date/Time: 01/30/2020 (0320) t.SDR.MA50 Orig Print D/T: S: 01/30/2020 (032) PAGE 1 Si gned Report Serum or plasma sodium measurement (moles/volume)2020-01-23 04:35:00* Test Item Value Reference Range Interpretation Comments Sodium Level (test code = 2951-2) 132 136-145 [facility] potassium measurement (moles/volume)2020-01-23 04:35:00* Test Item Value Reference Range Interpretation Comments Potassium Level (test code = 2823-3) 3.7 3.5-5.1 [facility] or plasma chloride measurement (moles/volume)2020-01-23 04:35:00* Test Item Value Reference Range Interpretation Comments Chloride Level (test code = 2075-0) 98 98-107 [facility] or plasma carbon dioxide, total measurement (moles/volume)2020-01-23 04:35:00* Test Item Value Reference Range Interpretation Comments Carbon Dioxide Level (test code = 2027-9) 26 22-29 [facility] or plasma anion jzq4963-07-71 04:35:00* Test Item Value Reference Range Interpretation Comments Anion Gap (test code = 70083-4) 11.7 8-16 [facility] plasma urea nitrogen measurement (mass/volume)2020-01-23 04:35:00* Test Item Value Reference Range Interpretation Comments Blood Urea Nitrogen (test code = 3094-0) 11 7-26 [facility] or plasma creatinine measurement (mass/volume)2020-01-23 04:35:00* Test Item Value Reference Range Interpretation Comments Creatinine (test code = 2160-0) 0.70 0.72-1.25 [facility] or plasma urea nitrogen/creatinine mass zhqmd9298-46-07 04:35:00* Test Item Value Reference Range Interpretation Comments BUN/Creatinine Ratio (test code = 3097-3) 16 6-25 [facility] HospitalEstimated glomerular filtration rate (GFR) brddlzftgqzli3619-81-34 04:35:00* Test Item Value Reference Range Interpretation Comments Estimat Glomerular Filtration Rate (test code = 510916033) > 60 >60 Ranges were taken from the National Kidney Disease Education Program and the [facility] literature.Reference ranges:60 or greater: Fwutgv30-43 ( for 3 consecutive months): Chronic kidney disease 15 or less: Kidney failureFormerly [facility] HospitalGlucose spphrutooin7635-43-41 04:35:00* Test Item Value Reference Range Interpretation Comments Glucose Level (test code = JLR4492) 92 74-118 [facility] or plasma calcium measurement (mass/volume)2020-01-23 04:35:00* Test Item Value Reference Range Interpretation Comments Calcium Level (test code = 27513-0) 8.8 8.4-10.2 [facility] HospitalBlood cobalamin (vitamin B12) measurement (mass/volume)2020-01-22 12:05:00* Test Item Value Reference Range Interpretation Comments Vitamin B12 Level (test code = 82614-0) 1000 213-816 [facility] HospitalBlood leukocytes automated count (number/volume)2020-01-22 04:30:00* Test Item Value Reference Range Interpretation Comments White Blood Count (test code = 6690-2) 4.84 4.8-10.8 [facility] HospitalBlood erythrocytes automated count (number/volume)2020-01-22 04:30:00* Test Item Value Reference Range Interpretation Comments Red Blood Count (test code = 789-8) 3.89 4.3-5.7 [facility] HospitalBlood hemoglobin measurement (moles/volume)2020-01-22 04:30:00* Test Item Value Reference Range Interpretation Comments Hemoglobin (test code = 60403-4) 12.7 14.0-18.0 [facility] HospitalAutomated blood hematocrit (volume fraction)2020-01-22 04:30:00* Test Item Value Reference Range Interpretation Comments Hematocrit (test code = 4544-3) 35.9 38.2-49.6 [facility] HospitalAutomated erythrocyte mean corpuscular rqiuve4764-60-73 04:30:00* Test Item Value Reference Range Interpretation Comments Mean Corpuscular Volume (test code = 787-2) 92.3 81-99 [facility] HospitalAutomated erythrocyte mean corpuscular hemoglobin (mass per erythrocyte)2020-01-22 04:30:00* Test Item Value Reference Range Interpretation Comments Mean Corpuscular Hemoglobin (test code = 785-6) 32.6 28-32 [facility] HospitalAutomated erythrocyte mean corpuscular hemoglobin concentration measurement (mass/volume)2020-01-22 04:30:00* Test Item Value Reference Range Interpretation Comments Mean Corpuscular Hemoglobin Concent (test code = 786-4) 35.4 31-35 [facility] HospitalRDW SbwHb-Xye4156-67-27 04:30:00* Test Item Value Reference Range Interpretation Comments Red Cell Distribution Width (test code = 54495-3) 12.8 11.7 -14.4 [facility] HospitalAutomated blood platelet count (count/volume)2020-01-22 04:30:00* Test Item Value Reference Range Interpretation Comments Platelet Count (test code = 777-3) 230 140-360 [facility] HospitalAutomated blood segmented neutrophil count as percentage of total fqzngqomjh7959-53-94 04:30:00* Test Item Value Reference Range Interpretation Comments Neutrophils (%) (Auto) (test code = 67221-1) 83.3 38.7-80.0 [facility] HospitalAutomated blood lymphocyte count as percentage ot total rsdatcaxcv5885-15-14 04:30:00* Test Item Value Reference Range Interpretation Comments Lymphocytes (%) (Auto) (test code = 736-9) 12.6 18.0-39.1 [facility] HospitalAutomated blood monocyte count as percentage of total lboqgjkthz7242-87-80 04:30:00* Test Item Value Reference Range Interpretation Comments Monocytes (%) (Auto) (test code = 5905-5) 3.5 4.4-11.3 [facility] HospitalAutomated blood eosinophil count as percentage of total orqwrvrvbh3205-86-75 04:30:00* Test Item Value Reference Range Interpretation Comments Eosinophils (%) (Auto) (test code = 713-8) 0.0 0.0-6.0 [facility] HospitalAutomated blood basophil count as percentage of total owhcvroeip1819-97-77 04:30:00* Test Item Value Reference Range Interpretation Comments Basophils (%) (Auto) (test code = 706-2) 0.4 0.0-1.0 [facility] HospitalFluoroscopic procedure less than one hour zchenaey1257-01-24 04:30:00* Test Item Value Reference Range Interpretation Comments IM GRANULOCYTES % (test code = IM GRANULOCYTES %) 0.2 0.0- 1.0 [facility] HospitalAutomated blood neutrophil count 2020-01-22 04:30:00* Test Item Value Reference Range Interpretation Comments Neutrophils # (Auto) (test code = 751-8) 4.0 2.1-6.9 [facility] HospitalBlood lymphocytes count (number/volume) 2020-01-22 04:30:00* Test Item Value Reference Range Interpretation Comments Lymphocytes # (Auto) (test code = 83226-9) 0.6 1.0-3.2 [facility] HospitalBlood monocytes automated count (number/volume)2020-01-22 04:30:00* Test Item Value Reference Range Interpretation Comments Monocytes # (Auto) (test code = 742-7) 0.2 0.2-0.8 [facility] HospitalAutomated blood eosinophil count 2020-01-22 04:30:00* Test Item Value Reference Range Interpretation Comments Eosinophils # (Auto) (test code = 711-2) 0.0 0.0-0.4 [facility] HospitalAutomated blood basophil count (count/volume)2020-01-22 04:30:00* Test Item Value Reference Range Interpretation Comments Basophils # (Auto) (test code = 704-7) 0.0 0.0-0.1 [facility] HospitalFluoroscopic procedure less than one hour pghfnexh5463-63-90 04:30:00* Test Item Value Reference Range Interpretation Comments Absolute Immature Granulocyte (auto (jim t code = Absolute Immature Granulocyte (auto) 0.01 0-0.1 [facility] HospitalFree thyroxine rtlkj5792-29-06 15:33:00* Test Item Value Reference Range Interpretation Comments Free Thyroxine Index (test code = 10879-5) 1.7866 1.4-3.8 [facility] plasma thyroxine (T4) measurement (mass/volume)2020-01-20 15:33:00* Test Item Value Reference Range Interpretation Comments Thyroxine (T4) (test code = 3026-2) 6.18 4.5-10.9 [facility] or plasma triiodothyronine resin uptake (T3RU)2020-01-20 15:33:00* Test Item Value Reference Range Interpretation Comments Triiodothyronine (T3) Uptake (test code = 3050-2) 28.91 22.5 -37.0 [facility] or plasma thyrotropin measurement by detection limit <= 0.005 miu/l (units/volume)2020-01-20 15:33:00* Test Item Value Reference Range Interpretation Comments Thyroid Stimulating Hormone (TSH) (test code = 10994-4) 0.399 0.350-4.940 [facility]rum nuclear antibody titer by wfknmrmbdpjcwqnmsz2169-46-91 15:33:00* Test Item Value Reference Range Interpretation Comments Anti-Nuclear Antibody Screen (test code = 5048-4) Negative . Negative <1:80 Borderline 1:80 Positive > 1:80Performed at: - [facility] [address] [id number] 3Lab Director: Roverto Putnam MD, Phone: [phone] [facility] HospitalCT BRAIN US9034-56-50 11:44:00 [facility] [address] [address] Patient Name: MAXIMO GALVEZ MR #: [id number] : 1945 Age/Sex: 74/M Req #: [id number] Adm Physician: VIRGILIO WONG MD Ordered by: VIRGILIO WONG MD Report #: [id number] Location: [facility] Room/Bed: [place] [address] Procedure: [id number] CT/CT BRAIN Date: 01/20/20 Exam Time: 1115 REPORT STATUS: [...] AM Dictated By: ANDREW HAGEN MD Electronica lly Signed By: ANDREW HAGEN MD on 01/20/20 1150 Transcribed By: MAT on 0 01/20/20 1150 COPY TO: VIRGILIO WONG MD Urine sodium measurement (moles/volume)2020-01-20 08:09:00* Test Item Value Reference Range Interpretation Comments Urine Random Sodium (test code = 2955-3) 97 [facility] HospitalCT CHEST SU8730-45-71 13:27:00 [facility] [address] [place] [address] Patient Name: MAXIMO GALVEZ MR #: [id number] : 1945 Age/Sex: 74/M Req #: [id number] Adm Physician: VIRGILIO WONG MD Ordered by: VIRGILIO WONG MD Report #: [id number] Location: [facility] Room/Bed: [place] [address] Procedure: [id number] CT/CT CHEST WO Ex am Date: 01/19/20 [...] MD 34 Transcribed By: MAT on 01/19/20 1335 C OPY TO: VIRGILIO WONG MD Serum or plasma creatine kinase measurement (enzymatic activity/volume)2020-01-19 12:35:00* Test Item Value Reference Range Interpretation Comments Creatine Kinase (test code = 2157-6) 195 30-200 [facility] or plasma creatine kinase MB measurement (mass/volume)2020-01-19 12:35:00* Test Item Value Reference Range Interpretation Comments Creatine Kinase MB (test code = 30755-7) 4.10 0-5.0 [facility] HospitalTroponin I measurement by highly sensitive enzyme cuxedifsnue4364-87-10 12:35:00* Test Item Value Reference Range Interpretation Comments Troponin I (test code = 15735-3) 0.005 0-0.300 [facility] HospitalOsmolality of Serum or Plasma by clyxqvpevyq6049-87-87 04:15:00* Test Item Value Reference Range Interpretation Comments Serum Osmolality (test code = 26734-4) 251 278-305 [facility] or plasma total bilirubin measurement (mass/volume)2020-01-19 04:15:00* Test Item Value Reference Range Interpretation Comments Total Bilirubin (test code = 1975-2) 0.4 0.2-1.2 [facility] HospitalFluoroscopic procedure less than one hour rpbdbdif0486-70-28 04:15:00* Test Item Value Reference Range Interpretation Comments Aspartate Amino Transf (AST/SGOT) (test code = Aspartate Amino Transf (AST/SGOT)) 16 5-34 [facility] or plasma alanine aminotransferase measurement (enzymatic activity/volume)2020-01-19 04:15:00* Test Item Value Reference Range Interpretation Comments Alanine Aminotransferase (ALT/SGPT) (test code = 1742-6) 7 0-55 [facility] or plasma protein measurement (mass/volume)2020-01-19 04:15:00* Test Item Value Reference Range Interpretation Comments Total Protein (test code = 2885-2) 6.1 6.5-8.1 [facility] or plasma albumin measurement (mass/volume)2020-01-19 04:15:00* Test Item Value Reference Range Interpretation Comments Albumin (test code = 1751-7) 3.7 3.5-5.0 [facility] HospitalPlasma globulin measurement (mass/volume) 2020-01-19 04:15:00* Test Item Value Reference Range Interpretation Comments Globulin (test code = 38743-7) 2.4 2.3-3.5 [facility] or plasma albumin/globulin mass quhmr4141-83-19 04:15:00* Test Item Value Reference Range Interpretation Comments Albumin/Globulin Ratio (test code = 1759-0) 1.5 0.8-2.0 [facility] or plasma alkaline phosphatase measurement (enzymatic activity/volume)2020-01-19 04:15:00* Test Item Value Reference Range Interpretation Comments Alkaline Phosphatase (test code = 6768-6) 57 40-150 [facility] HospitalCHEST 2 OEOWN1853-29-20 20:52:00 [facility] [address] [place] [address] Patient Name: MAXIMO GALVEZ MR #: [id number] : 1945 Age/Sex: 74/M Req #: [id number] Adm Physician: VIRGILIO WONG MD Ordered by: DANIKA WONG DO Report #: [id number] Location: [facility] Room/Bed: [place] [address] Procedure: [id number] DX/CHEST 2 VIEWS Exam Date: 01/18/20 Exam [...] detection of RNA from SARS-CoV-2 from nasopharyngeal (TELETYPESETTER) specimens. It is used under Emergency Use [...] repr at testing oc clinically indicated.Tesing performed by:[facility] Laboratory Services3 [facility] [id number], Ro foster MD, PhDTexas Health Kaufman THREE VIEWS BILATERAL 2020-01-18 20:50:00 [facility] [address] [place], [place] [address] Patient Name: MAXIMO GALVEZ MR #: [id number] : 1945 Age/Sex: 74/M Req #: [id number] Adm Physician: VIRGILIO WONG MD Ordered by: DANIKA WONG DO Report #: [id number] Location: [facility] Room/Bed: [place] [address] Procedure: [id number] DX/KNEE THREE EWS BILATERAL Exam Date: 01/18/20 [...] TO: DANIKA WONG DO HAND 3+ VIEWS XPCKM0425-86-54 20:48:00 [facility] [address] [place], [place] [address] Patient Name: MAXIMO GALVEZ MR #: [id number] : 1945 Age/Sex: 74/M Req #: [id number] Adm Physician: VIRGILIO WONG MD Ordered by: DANIKA WONG DO Report #: [id number] Location: [facility] Room[facility]Bed: [facility]-4 Procedure: DX/HAND 3+ VIEWS RIGHT Exam Date: [...] TO: DANIKA WONG DO CT CERVICAL SPINE HS5575-20-89 20:31:00 [address] [place] [address] Patient Name: MAXIMO GALVEZ MR #: [id number] : 1945 Age/Sex: 74/M Req #: [id number] Adm Physician: Ordered by: DANIKA WONG DO Report #: [id number] Location: ER Room/Bed: Procedure: [id number] CT/CT CERVICAL [place] DEAL Exam Date: 01/18/20 [...] 35 COPY TO: NASIMA WONG DO CT JANINAIO FAC/ELIZABETH YH1608-15-84 20:27:00 [address] [address] Patient Name: MAXIMO GALVEZ MR #: [id number] : 1945 Age/Sex: 74/M Req #: [id number] Adm Physician: Ordered by: DANIKA WONG DO Report #: [id number] Location: ER Room/Bed: Procedure: [id number] CT/CT MAXIO FAC/ PARANAS WO Exam Date: 01/18/20 Exam Time: 1919 REPORT STATUS: Signed History:Fall Comparison studies: None Technique: Axial images were obtained through e maxillofacial region. Coronal and sagittal images [...] WONG DO CT BRAIN WO 2020-01-18 20:25:00 [address] [place] [address] Patient Name: MAXIMO GALVEZ MR #: [id number] : 1945 Age/Sex: 74/M Req #: [id number] Adm Physician: Ordered by: DANIKA WONG DO Report #: [id number] Location: ER Room/Bed: Procedure: [id number] CT/CT BRAIN WO Exam Date: 01/18/20 Exam Time: 0 REPORT STATUS: Signed ADDENDUM #1 Incidental 1.4 [...] ANTONIO NASSAR MD, MD 26 COPY TO: DANIKA WONG BNP Znz-qAly0011-68-23 19:32:00* Test Item Value Reference Range Interpretation Comments B-Type Natriuretic Peptide (test code = 45202-9) 61.9 0-100 [facility] or plasma ethanol measurement (mass/volume)2020-01-18 19:32:00* Test Item Value Reference Range Interpretation Comments Ethyl Alcohol Level (test code = 5643-2) < 10.0 0.0-10.0 [facility] HospitalUrine color uftmtweuogvef2846-92-82 19:30:00* Test Item Value Reference Range Interpretation Comments Urine Color (test code = 5778-6) YELLOW YELLOW [facility] HospitalUrine yububgn9724-48-85 19:30:00* Test Item Value Reference Range Interpretation Comments Urine Clarity (test code = 35216-7) SL CLOUDY CLEAR [facility] Centerpecific gravity of Urine by Test strip 2020-01-18 19:30:00* Test Item Value Reference Range Interpretation Comments Urine Specific [place] (test code = 5811-5) 1.025 1.010-1.02 5 [facility] HospitalUrine pH measurement by automated test jovjv5899-21-13 19:30:00* Test Item Value Reference Range Interpretation Comments Urine pH (test code = 66516-2) 7 5-7 [facility] HospitalUrine leukocyte esterase detection by wbfqecxc3980-61-13 19:30:00* Test Item Value Reference Range Interpretation Comments Urine Leukocyte Esterase (test code = 5799-2) NEGATIVE NEGATIVE [facility] HospitalUrine nitrite oizywfujs5355-57-81 19:30:00* Test Item Value Reference Range Interpretation Comments Urine Nitrite (test code = 87242-8) NEGATIVE NEGATIVE [facility] HospitalUrine protein measurement by test strip (mass/volume)2020-01-18 19:30:00* Test Item Value Reference Range Interpretation Comments Urine Protein (test code = 5804-0) >=300 NEGATIVE [facility] HospitalUrine glucose xtpbtheah1952-54-95 19:30:00* Test Item Value Reference Range Interpretation Comments Urine Glucose (UA) (test code = 2349-9) NEGATIVE NEGATIVE [facility] HospitalUrine ketones detection by automated test vpfzu4617-60-70 19:30:00* Test Item Value Reference Range Interpretation Comments Urine Ketones (test code = 11559-4) NEGATIVE NEGATIVE [facility] HospitalUrine urobilinogen measurement by test strip (mass/volume)2020-01-18 19:30:00* Test Item Value Reference Range Interpretation Comments Urine Urobilinogen (test code = 33817-2) 0.2 0.2-1 [facility] HospitalUrine total bilirubin measurement (mass/volume)2020-01-18 19:30:00* Test Item Value Reference Range Interpretation Comments Urine Bilirubin (test code = 1978-6) NEGATIVE NEGATIVE [facility] HospitalUrine erythrocytes zlbdpcjln9781-97-11 19:30:00* Test Item Value Reference Range Interpretation Comments Urine Blood (test code = 17844-8) NEGATIVE NEGATIVE [facility] HospitalAutomated urine sediment leukocyte count by microscopy (number/high power field)2020-01-18 19:30:00* Test Item Value Reference Range Interpretation Comments Urine WBC (test code = 5821-4) 0-5 0-5 [facility] HospitalErythrocytes detection in urine sediment by light hygdjfxwdz2571-91-20 19:30:00* Test Item Value Reference Range Interpretation Comments Urine RBC (test code = 83221-8) NONE 0-5 [facility] HospitalBacteria detection in urine sediment by light agbufiwqdn1605-19-82 19:30:00* Test Item Value Reference Range Interpretation Comments Urine Bacteria (test code = 88389-9) FEW NONE [facility] HospitalEpithelial cells detection in urine sediment by light mxkunhmurj8923-46-81 19:30:00* Test Item Value Reference Range Interpretation Comments Urine Epithelial Cells (test code = 90032-1) NONE NONE [facility] HospitalOsmolality of Oajbw0274-62-82 19:30:00* Test Item Value Reference Range Interpretation Comments Urine Osmolality (test code = 4155-5) 415 . 24 hr : 300 - 900 Random: 50 - 1400 After 12hr fluid restriction: >850Performed at: HD - [facility] [address] [place], [place] [id number] Director: Roverto Putnam MD, Phone: [phone] [facility] CT HEAD/BRAIN W/O ANCN6308-28-78 13:07:00 Name: MAXIMO GALVEZ [facility] : 1945 Age/S: 74 / M [address] [facility] Unit #: [id number] Loc: [place] [address] Phys: Kathy Go MD Acct: [id number] Dis Date: Status: REG ER PHONE #: [phone] Exam Date: 06/06/2019 1255 FAX #: [phone] Reason: FRONTAL HEADACHE EXAMS: CPT CODE: [id number] CT HEAD/BRAIN W/O CONT 80692 HISTORY: Frontal headaches. COMPARISON: Head CT from March 03, 2019. CT brain without contrast: Automated exposure control. Location: [facility]. No acute intracranial bleeds or extra- axial [...] Galindo RT(R),(MR),(CT) CTDI: DLP: Trnscb Date/Time: 06/06/2019 (1307) t.SDR.TH4 Orig Print D/T: S: 06/06/2019 (1160) PAGE 1 Signed Report [id number] 07:12:00* Test Item Value Reference Range Interpretation Comments GLUBED (test code = GLUBED) 91 mg/dL 74-106 N Performed by certified forwarder operator at [facility] QYXBWGPI-Z6300-01-07 21:27:00* Test Item Value Reference Range Interpretation Comments TROPONIN-I (test code = TROPI) <0.015 ng/mL 0-0.045 N COMMENTS TO NEON SIGN MECHANIC: COLLECT 3 HOURS AFTER PREVIOUS DXJLORZUDRZG1923-67-82 20:57:00* Test Item Value Reference Range Interpretation Comments GLUBED (test code = GLUBED) 93 mg/dL 74-106 N Performed by certified forwarder operator at [facility] - MRI BRAIN W/O UOSLYYYK1578-70-91 20:16:00 FAX: Roxie Silva [phone] [place]: St: ADM FAX: Stacey Martinez [phone] Name: MAXIMO GALVEZ [facility] : 1945 Age/S: 74/M [address] [facility] Unit #: [id number] Loc: [address] [place] [address] Phys: Roxie Silva NP Acct: [id number] Dis Date: Status: ADM IN PHONE #: [phone] Exam Date: 03/03/20191999 FAX #: [phone] Reason: TIA EXAMS: CPT CODE: [id number] MRI BRAIN W/O CONTRAST 74661 REASON FOR EXAM: TIA Exam Order Date: [...] 1 Signed Report (CONTINUED) FAX: Phil Silva [phone] [place]: B St: ADM FAX: Stacey Martinez Name: MAXIMO GALVEZ [facility] : 1945 Age/S: 74/M [address] nit #: [id number] Loc: [address] [place] [address] Phys: Roxie Silva NP Acct: [id number] Dis Date: Status: ADM IN P YESENIA #: [phone] Exam Date: 03/03/20191999 FA X #: [phone] Reason: TIA EXAMS: CPT CODE: [id number] M RI BRAIN W/O CONTRAST 21615 <Continued> CC: Roxie Silva NP; Stacey Knott MD Technologist: Tricia Castaneda)(MR) Trnscrd Date/Time/By: 03/03/2019 (2015) : By: Jovan Christiansen P roman D/T: S: 03/03/2019 (2018) PAGE 2 Signed Report [id number] 18:36:00* Test Item Value Reference Range Interpretation Comments TROPONIN-I (test code = TROPI) <0.015 ng/mL 0-0.045 N COMMENTS TO NEON SIGN MECHANIC: COLLECT 3 HOURS AFTER PREVIOUS OZTXTSOFAPYH2618-65-12 16:55:00* Test Item Value Reference Range Interpretation Comments GLUBED (test code = GLUBED) 115 mg/dL 74-106 H Performed by certified forwarder operator at [facility] - CTA FMPL9005-46-21 15:33:00 Name: MAXIMO GALVEZ [facility] : 1945 Age/S: 74 / M [address] [facility] Unit #: [id number] Loc: [place] [address] Phys: Roxie Silva TELETYPESETTER Acct: [id number] Dis Date: Status: ADM IN PHONE #: [phone] Exam Date: 03/03/2019 1303 FAX #: [phone] Reason: TIA EXAMS: CPT CODE: [id number] CTA NECK 25769 HISTORY: TIA TECHNIQUE: Cerebral and Cervical CT [...] the basilar tip. Bilateral P1 and distal [facility] [employer] segments are pat ent. Right posterior commuting [...] 1 Signed Report (CONTINUED) Name: MAXIMO GALVEZ [facility] DO B: 1945 Age/S: 74 / M [address] [facility] Unit #: [id number] Loc: [place] [address] Phys: Shi Silva NP Acct: [id number] D is Date: Status: ADM IN PHONE #: [phone] Exam Date: 03/03/2019 1303 FAX #: Reason: TIA EXAMS: CPT CODE: [id number] CTA NECK 50296 <Continued> at 1533 Reported and signed by: Josh Coy MD CC: Roxie Silva NP; Stacey Knott MD Technologist:Eladio Galindo RT(R),(MR),(CT) CTDI: DLP: Trnscb Date/Time: 03/03/2019 (1533) t.SDR.RR31/t.SDR.RR31 Orig Print D/T: S: 03/03/2019 (1536) PAGE 2 Signed Report - CTA [id number] 15:33:00 Name: MAXIMO GALVEZ [facility] : 1945 Age/S: 74 / M [address] [facility] Unit #: [id number] Loc: [place] [address] Phys: Roxie Silva TELETYPESETTER Acct: [id number] Dis Date: Status: ADM IN PHONE #: [phone] Exam Date: 03/03/2019 1303 FAX #: [phone] Reason: TIA EXAMS: CPT CODE: [id number] CTA HEAD 85770 HISTORY: TIA TECHNIQUE: Cerebral and Cervical CT [...] the basilar tip. Bilateral P1 and distal SERVICE CENTER SPECIALIST segments are pat ent. Right posterior commuting [...] 1 Signed Report (CONTINUED) Name: MAXIMO GALVEZ [facility] B: 1945 Age/S: 74 / M [address] [facility] Unit [facility]: [id number] Loc: [place] [address] Phys: Shi Silva TELETYPESETTER Acct: [id number] D is Date: Status: ADM IN PHONE #: [phone] Exam Date: 03/03/2019 1303 FAX #: [phone] Reason: TIA EXAMS: CPT CODE: [id number] CTA HEAD 76602 <Continued> at 1533 Reported and signed by: Josh Coy MD CC: Roxie Silva TELETYPESETTER; Stacey Knott MD Technologist:Eladio Galindo RT(R),(MR),(CT) CTDI: DLP: Trnscb Date/Time: 03/03/2019 (5343) t.SDR.RR31/t.SDR.RR31 Orig Print D/T: S: 03/03/2019 (5511) PAGE 2 Signed Report LIPID PROFILE (CORONARY [...] a direct measurement.========= - XR CHEST 1 [id number] 12:08:00 FAX: Bernardo Quesada MD [phone] Na[place]: St: ADM Name: MAXIMO AMAYA [facility] : [birth year] Age/S: 74/M [address] [facility] Unit #: [id number] Loc: [place] [address] Phys: Bernardo Quesada MD Acct: [id number] Dis Date: Status: ADM IN PHONE #: [phone] Exam Date: 03/03/2019 1115 FAX #: [phone] Reason: CODE STROKE EXAMS: CPT CODE: [id number] XR CHEST 1 V 26028 REASON FOR EXAM: CODE STRO KE Exam [...] The upper jazlyn gs are clear. Location: [facility] at 1208 Reported and sig porter by: Josh Coy MD CC: Bernardo Quesada MD Technologist: Siria Johnson(R) Trnscrd Date/Time/By: 03/03/2019 (5964) : By: [email or web address] Orig Print D/ T: S: 03/03/2019 (2479) PAGE 1 Si gned Report BASIC METABOLIC [id number] 11:41:00* Test Item Value Reference Range Interpretation [...] code = CA) 9.2 mg/dL 8.5-10.1 N [id number] 11:41:00* Test Item Value Reference Range Interpretation Comments TROPONIN-I (test code = TROPI) <0.015 ng/mL 0-0.045 N BASIC METABOLIC [id number] 11:33:00* Test Item Value Reference Range Interpretation [...] CALCIUM (test code = CA) mg/dL 8.5-10.1 [id number] 11:33:00* Test Item Value Reference Range Interpretation Comments TROPONIN-I (test code = TROPI) ng/mL 0-0.045 CBC W/AUTO [id number] 11:28:00* Test Item Value Reference Range Interpretation [...] REQUIRED (test code = MDIFF) NO PROTHROMBIN [id number] 11:26:00* Test Item Value Reference Range Interpretation [...] (2.5-3.5) IS PATIENT ON ANTICOAGULANTS? NTHROMBOPLASTIN TIME [id number] 11:26:00* Test Item Value Reference Range Interpretation Comments THROMBOPLASTIN TIME PARTIAL (test code = PTT) 29.0 seconds 25.0-36. 5 N IS PATIENT ON ANTICOAGULANTS? N- CT HEAD/BRAIN W/O [id number] 11:16:00 Name: MAXIMO GALVEZ [facility] : 1945 Age/S: 74 / M [address] [facility] Unit #: [id number] Loc: [place] [address] Phys: Gamaliel Quesada MD Acct: [id number] Di s Date: Status: PRE ER PHONE #: Exam Date: 03/03/2019 1103 FAX #: [phone] Reason: R sided weaness and numbness EXAMS: CPT CODE: [id number] CT HEAD/BRAIN W/O CONT 54680 HISTORY: R sided weaness and numbness TECHNIQUE: [...] bilateral thalami may represent lacunar infarcts. Location: [facility] at 1116 Reported and si gned by: Josh Coy MD PAGE 1 Signed Report (CONTINUED) Name: MAXIMO GALVEZ [facility] : 1945 Age/S: 74 / M [address] Unit #: [id number] Loc: [place] [address] Phys: Bernardo Quesada MD Acct: [id number] Dis Date: Status: PRE ER PHONE #: [phone] Exam Date: 03/03/2019 1103 FAX #: [phone] Reason: R sided weaness and numbness EXAMS: CPT CODE: [id number] CT HEAD/BRAIN W/O CONT 64594 < Continued> CC: Bernardo Quesada MD Technologist:Karina Plascencia RT(R),CT CTDI: DLP: Trnscb Date/Time: 03/03/2019 (1116) t.[email or web address].[email or web address] Orig Print D/T: S: 03/03/2019 (1119) PAGE [address] MAXIO FAC/PARANAS [id number] 14:40:00 [place] [address] Patient Name: MAXIMO GALVEZ MR #: [id number] : 1945 Age/Sex: 73/M Req #: [id number] Adm Physician: Ordered by: ARIELLE TYLER TELETYPESETTER Report #: [id number] Location: CT Room/Bed: Procedure: [id number] CT/CT MAXIO FAC/PARANAS WO Exam Date: 06/01/18 [...]
[2020-02-12] VITALS (28 sets, daily range): BP systolic 117–182; BP diastolic 57–123
[2020-02-12] MEDS ORDERED: METOPROLOL TARTRATE INJ 1 MG/ML VIAL IV PRN
[2020-02-12 05:31] LABS: BASOPHILS # (AUTO) 0.1 (0.0-0.1); BASOPHILS % 1.3 % (0.0-1.0); EOSINOPHILS # (AUTO) 0.3 (0.0-0.4); EOSINOPHILS % 5.5 % (0.0-6.0); HEMATOCRIT 30.7 % (38.2-49.6); HEMOGLOBIN 10.9 g/dL (14.0-18.0); LYMPHOCYTES # (AUTO) 1.4 (1.0-3.2); MEAN CORPUSCULAR HEMOGLOBIN 31.6 pg (28-32); MEAN CORPUSCULAR HGB CONC 35.5 g/dL (31-35); MONOCYTES # (AUTO) 0.8 (0.2-0.8); MONOCYTES % 12.6 % (4.4-11.3); NEUTROPHILS # (AUTO) 3.5 (2.1-6.9); NEUTROPHILS % 57.3 % (38.7-80.0); PLATELET COUNT 230 x10e3/uL (140-360); RED BLOOD COUNT 3.45 x10e6/uL (4.3-5.7); RED CELL DISTRIBUTION WIDTH 12.5 % (11.7-14.4)
[2020-02-12 05:58] LABS: ALANINE AMINOTRANSFERASE 15 IU/L (0-55); ALBUMIN 3.3 g/dL (3.5-5.0); ALBUMIN/GLOBULIN RATIO 1.1 (0.8-2.0); ALKALINE PHOSPHATASE 63 IU/L (40-150); BLOOD UREA NITROGEN 7 mg/dL (7-26); BUN/CREATININE RATIO 11 (6-25); CALCIUM 8.3 mg/dL (8.4-10.2); CARBON DIOXIDE 23 mmol/L (22-29); CHLORIDE 90 mmol/L (98-107); CREATININE, SERUM 0.63 mg/dL (0.72-1.25); EST GLOMERULAR FILTRATION RATE > 60 ML/MIN (60-); GLUCOSE 96 mg/dL (74-118); SODIUM 120 mmol/L (136-145)
--- NOTE | 2020-02-12 06:47 | NUR ---
Report given to oncoming shift,VSS
[2020-02-12] MEDS ORDERED: ALBUTEROL SULFATE HFA 8GM INHALATION AEROSOL INH PRN (08:45)
[2020-02-12] MEDS ORDERED: ONDANSETRON HCL INJ 2MG/ML 2ML 2 MG/ML VIAL IV PRN (09:00)
[2020-02-12] MEDS ORDERED: ZOLPIDEM TARTRATE 5 MG TAB PO PRN ×2 (09:00→12:45)
[2020-02-12] MEDS ORDERED: HYDRALAZINE HCL 20 MG/ML VIAL IV PRN (09:00)
[2020-02-12] MEDS ORDERED: SODIUM CHLORIDE 0.9% 1000ML 500 ML IV ONE (09:00)
[2020-02-12] MEDS: NIFEDIPINE CR 30 MG TAB PO SCH (09:13)
--- NOTE | 2020-02-12 10:36 | Consultation ---
DATE OF CONSULTATION: Pulmonary Critical Care Consultation CHIEF COMPLAINT: Abnormal chest x-ray, confusion and low sodium. HISTORY OF PRESENT ILLNESS: The patient is a 74-year-old man. He has a history of some pulmonary fibrosis in the usual interstitial pneumonitis pattern on prior chest x-rays. He uses albuterol intermittently at home. 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 He came into the emergency department with some increased confusion and headache. He also had some falling. He denies any fever. He is not having any chest pain. He is not having any cough or phlegm production. Overall, he states he feels better. PAST SURGICAL HISTORY: Cataract surgery. PAST MEDICAL HISTORY: 1. Pulmonary fibrosis with the usual interstitial pneumonitis, pattern. 2. Syndrome of inappropriate anti-diuretic hormone secretion. 3. Hypertension. 4. Possible COPD. ALLERGIES: NO KNOWN DRUG ALLERGIES. SOCIAL HISTORY: The patient does not smoke. He was a drinker in the past, but quit. 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 REVIEW OF SYSTEMS: The patient is afebrile. He complained of headache initially, but is not complaining of headache now. He has no neck pain. He is not having chest pain. He denies dyspnea or cough. He has no fever. PHYSICAL EXAMINATION: He has no chest pain. He has no abdominal pain. There is no nausea or vomiting. He has no leg edema or swelling. PHYSICAL EXAMINATION: VITAL SIGNS: Blood pressure is 135/99, saturation is 100% on room air and the pulse is 71. Respiratory rate is 18. HEENT: Shows no facial swelling or erythema. LYMPHATIC: Shows no submandibular, cervical or supraclavicular adenopathy. CARDIAC: Reveals a regular rate and rhythm with normal S1, S2. LUNGS: Auscultation of lungs shows rhonchorous breath sounds bilaterally. There is no wheezing. ABDOMEN: Soft nontender. There is no rebound or guarding. EXTREMITIES: Shows no leg edema or calf tenderness. There is no cyanosis or clubbing. SKIN: Shows no rashes. NEUROLOGICAL: Shows no focal abnormalities. The patient does have some confusion. LABORATORY DATA: White blood cell count is 6.05, hemoglobin is 10.9, platelet count is 230. The BUN to creatinine ratio is normal. The sodium is 120. Chloride is 90. Carbon dioxide is 23. The albumin is 3.3. RADIOGRAPHIC DATA: Chest x-ray shows diffuse bilateral airspace opacities. CT scan of the chest shows chronic interstitial lung disease with an UIP pattern and honeycombing at the bases. IMPRESSION: 1. Metabolic encephalopathy. 2. Hyponatremia with syndrome of inappropriate anti-diuretic hormone release. 3. Pulmonary fibrosis of unclear etiology with minimal symptoms. 4. Hypertension. 5. Anemia secondary to chronic blood loss. PLAN: 1. The patient will be restarted on demeclocycline. 2. Fluid restriction and possible Nephrology consultation. 3. Continue rescue inhaler from home. 4. The patient should have pulmonary function tests as an outpatient and further investigation of history to look for any possible pneumoconiosis or other underlying causes for his pulmonary fibrosis. 5. Restart the patient's antihypertensive medications. 6. Continue to monitor neurological status. 7. DVT prophylaxis. 8. Physical therapy. 9. Speech therapy to evaluate swallowing function. Navi Houser MD [facility]/MODL /[id number]
--- NOTE | 2020-02-12 12:37 | NUR ---
H&P cc: confusion HPI: 74yoM, with hx hyponatremia, now with confusion and hyponatremia, and CXR showing B/L pneumonia. Pt unable to provide history. PMH: Hyponatremia, Fall, Atypical PNA, Pulmonary fibrosis, HTN, SIADH PSHx: unknown Allergies; see emr Fh/Sh; no illicits meds; see MAR ROS: unreliable v/s revd PE tired appearing anicteric ns1s2 REDUCED BS soft nt nd no e/t skin dry flat affect awake; oriented to self houser labs/meds revd A/P Multifocal PNA- IV abx; f/u COVID testing. Hyponatremia- check urine/serum osm and urine Na. fluid restrict JOSEY/AMS- due to hyponatremia Pulmonary fibrosis- chronic; supportive Prop: scd; pepcid dipso: f/u Na. cct>35mins JESSICA POOLE MD, PHD.
[2020-02-12] MEDS ORDERED: DOCUSATE SODIUM 100 MG CAP PO PRN (12:45)
--- NOTE | 2020-02-12 13:05 | NUR ---
Assisted patient back to bed continues trying to get out of bed
--- NOTE | 2020-02-12 13:45 | NUR ---
Dr Trivedi at bedside assistd pt up to bedside commode for the ninth time colace given to soften stool
--- NOTE | 2020-02-12 14:10 | NUR ---
Dr Trivedi at bedside informed him patient is confused and kepts trying to get out of bed , bed alarms on
--- NOTE | 2020-02-12 15:21 | NUR ---
Dr Houser informed of patients behavior attempted TV on TV off in with patient frequently
[2020-02-12 15:23] LABS: SODIUM 120 mmol/L (136-145)
[2020-02-12] MEDS ORDERED: RISPERIDONE 0.5 MG TAB PO PRN (15:30)
--- NOTE | 2020-02-12 16:00 | NUR ---
Dr Houser here informed of 450cc bladder scan and pt continues to need to have bowel movement informed him patient had 2 BM today rest of time nothing and colace given.
[2020-02-12 16:41] LABS: BLOOD UREA NITROGEN 9 mg/dL (7-26); GLUCOSE 118 mg/dL (74-118); OSMOLALITY,SERUM 242 mOsm/kg (278-305)
[2020-02-12 17:21] LABS: BILIRUBIN,URINE NEGATIVE (NEGATIVE); CLARITY,URINE CLEAR (CLEAR); COLOR,URINE YELLOW (YELLOW); KETONES,URINE NEGATIVE (NEGATIVE); LEUKOCYTE ESTERASE ,URINE NEGATIVE (NEGATIVE); NITRITE,URINE NEGATIVE (NEGATIVE); PROTEIN,URINE DIPSTICK 1+ (NEGATIVE); URINE UROBILINOGEN 0.2 mg/dL (0.2 - 1)
[2020-02-12 17:32] LABS: CREATININE,URINE RANDOM 29.99 mg/dL (63-166); SODIUM,URINE 53 mmol/L
[2020-02-12 17:36] LABS: BACTERIA,URINE FEW /HPF; EPITHELIAL CELLS,URINE RARE /LPF; WBC,URINE (MAN) 0-5 /HPF (0-5)
[2020-02-12] MEDS: ENOXAPARIN SOD INJ 40 MG/0.4 ML SYR SC SCH (17:58)
--- NOTE | 2020-02-12 18:01 | NUR ---
Phoned Dr Houser informed pt still yelling and trying to get out of bed> Since jain placement 1 liter> Geodon 20mg IM now
[2020-02-12] MEDS ORDERED: ZIPRASIDONE 20 MG VIAL IM STA (18:02)
[2020-02-12] MEDS: BUDESONIDE/FORMOTEROL 160/4.5MCG INHALER INH SCH (19:00)
[2020-02-13] VITALS (30 sets, daily range): BP systolic 90–172; BP diastolic 55–90
--- NOTE | 2020-02-13 06:11 | NUR ---
IM- progress note O/N see below ROS: unreliable v/s revd PE tired appearing anicteric ns1s2 REDUCED BS soft nt nd no e/t skin dry flat affect awake; oriented to self houser labs/meds revd A/P Multifocal PNA- IV abx; f/u COVID testing. Hyponatremia- check urine/serum osm and urine Na. fluid restrict JOSEY/AMS- due to hyponatremia Pulmonary fibrosis- chronic; supportive Prop: scd; pepcid dipso: f/u Na. cct>35mins 10-19 Na improving; f/u urine Osm; cct>35mins JESSICA POOLE MD, PHD.
[2020-02-13 06:38] LABS: ALANINE AMINOTRANSFERASE 15 IU/L (0-55); ALBUMIN 3.5 g/dL (3.5-5.0); ALBUMIN/GLOBULIN RATIO 1.1 (0.8-2.0); ALKALINE PHOSPHATASE 66 IU/L (40-150); ANION GAP 13.4 mmol/L (8-16); BLOOD UREA NITROGEN 7 mg/dL (7-26); BUN/CREATININE RATIO 10 (6-25); CALCIUM 8.8 mg/dL (8.4-10.2); CARBON DIOXIDE 24 mmol/L (22-29); CHLORIDE 95 mmol/L (98-107); EST GLOMERULAR FILTRATION RATE > 60 ML/MIN (60-); GLUCOSE 97 mg/dL (74-118); POTASSIUM 4.4 mmol/L (3.5-5.1); SODIUM 128 mmol/L (136-145)
[2020-02-13] MEDS: DEMECLOCYCLINE HCL 300 MG TAB PO SCH (06:38)
[2020-02-13] MEDS: BUDESONIDE/FORMOTEROL 160/4.5MCG INHALER INH SCH ×2 (07:00→19:37)
--- NOTE | 2020-02-13 07:19 | NUR ---
Dr Trivedi at bedside update given
[2020-02-13] MEDS: NIFEDIPINE CR 30 MG TAB PO SCH (08:05)
[2020-02-13 08:32] LABS: BASOPHILS # (AUTO) 0.1 (0.0-0.1); BASOPHILS % 0.9 % (0.0-1.0); EOSINOPHILS % 0.3 % (0.0-6.0); HEMATOCRIT 36.4 % (38.2-49.6); HEMOGLOBIN 12.6 g/dL (14.0-18.0); LYMPHOCYTES # (AUTO) 1.1 (1.0-3.2); LYMPHOCYTES % 11.8 % (18.0-39.1); MEAN CORPUSCULAR HGB CONC 34.6 g/dL (31-35); MEAN CORPUSCULAR VOLUME 89.7 fL (81-99); MONOCYTES # (AUTO) 1.1 (0.2-0.8); MONOCYTES % 11.4 % (4.4-11.3); NEUTROPHILS # (AUTO) 6.9 (2.1-6.9); NEUTROPHILS % 75.2 % (38.7-80.0); PLATELET COUNT 281 x10e3/uL (140-360); RED BLOOD COUNT 4.06 x10e6/uL (4.3-5.7)
--- NOTE | 2020-02-13 08:53 | NUR ---
Patient agitated cussing(shit) getting up out of bed. "stating his ready to go".
--- NOTE | 2020-02-13 12:00 | NUR ---
DAUGHTER CHUCK [phone] STATES HE IS FALLING MORE AT HOME, [facility] HE[facility] WITH [facility].
--- NOTE | 2020-02-13 12:05 | NUR ---
CHUCK STATES HAS A ROLLING WALKER AND A CANE BUT WILL ONLY USE THE CANE, STATES HE WILL WONDER OFF
--- NOTE | 2020-02-13 12:21 | Progress Note ---
DATE: Pulmonary Critical Care Progress Note SUBJECTIVE: The patient still has some confusion. He required Geodon last night. A Barnett catheter was placed and he had some urinary retention. He has a low-grade temperature this morning. PHYSICAL EXAMINATION: VITAL SIGNS: The blood pressure is 97/64, saturation is 100% on room air, and the respiratory rate is 22. Pulse is 77. HEENT: Shows no facial swelling or erythema. LYMPHATIC: Shows no submandibular, cervical or supraclavicular adenopathy. CARDIAC: Reveals regular rate and rhythm with normal S1 and S2. LUNGS: Auscultation of lungs reveals decreased breath sounds at the bases. There is no wheezing. ABDOMEN: Soft and nontender. There is no rebound or guarding. EXTREMITIES: Shows no leg edema or calf tenderness. There is no cyanosis or clubbing. LABORATORY DATA: Sodium is 128 and the BUN to creatinine ratio is 7 to 0.7. The other electrolytes are within normal limits. White blood cell count is 9.2 and hemoglobin is 12.6. The platelet count is 281. IMPRESSION: 1. Metabolic encephalopathy. 2. Urinary retention. 3. Fever possibly secondary to urinary tract infection. 4. Hypertension. 5. Chronic pulmonary fibrosis. 6. Anemia, unspecified. PLAN: 1. Begin Rocephin. 2. Continue demeclocycline. 3. Continue fluid restriction. 4. Barnett catheter. 5. Continue to monitor neurological status and use risperidone as needed. Navi Houser MD [facility]/MODL /[id number]
[2020-02-13] MEDS ORDERED: SODIUM CHLORIDE 0.9% 250ML 250 ML ONE (13:04)
[2020-02-13] MEDS: CEFTRIAXONE SOD 1 GM/NS 50 ML 50 ML IV SCH (13:18)
--- NOTE | 2020-02-13 13:37 | NUR ---
In room with patient remains confused and continues to try to get up and live while restraints are off , assisted patient to restroom allowed privacy for 20mins knocked on door pt continue to clean buttock with tissue no stool nor no flushing of toilet assisted pt back to bed. Once his back in bed pt what's to get up placed on bedside commode for 15 more minutes same behavior pt had large BM early am soft and formed. Patient continues to state he is living and when offered to call his Siri he said no. Placed back on monitor alarms on. Patient ate 100% of lunch without coughing or difficulty. Do not what his TV on
--- NOTE | 2020-02-13 16:53 | NUR ---
Nutrition Screen Note RD Recommendation for Physician: - Continue regular diet Plan of Care: RD following, monitoring for tolerance and adequacy Nutrition reason for involvement: Nutrition Risk Trigger Primary Diagnose(s): confusion, hyonatremia, and weakness PMH: Pulmonary fibrosis with the usual interstitial pneumonitis, pattern, Syndrome of inappropriate anti-diuretic hormone secretion, Hypertension, Possible COPD Ht: 67 in Wt:158 lb BMI: 24.7 kg/m2 IBW:[address] Assessment: (02/13/20) Chart reviewed. Labs and meds reviewed. Pt is a 74 year old male admitted with confusion, hyponatremia, and weakness. Pt was discussed during interdisciplinary rounds. Per chart and RN, pt is confused and agitated, but is eating all of his meals. Unable to obtain weight history from pt at this time. Will continue to monitor. Current Diet: regular Malnutrition Evaluation (02/13/20) The patient does not meet criteria for a specified degree of malnutrition at this time. Will re-evaluate at follow-up as appropriate. Diet Education Needs Assessment: Diet education not indicated. Nutrition Care Level: low Signed: Coral Meza, RD, LD
[2020-02-13] MEDS: ENOXAPARIN SOD INJ 40 MG/0.4 ML SYR SC SCH (17:10)
--- NOTE | 2020-02-13 18:50 | NUR ---
Report called to Ana patient transferred to room 106 via bed, tele monitor , all belongings, cellphone, purse, precision filer hand, shoes , red luggage and bags.
--- NOTE | 2020-02-13 19:13 | NUR ---
received pt layin in bed, awake an oriented to self and place, follows commands, and is restless but cooperative at this time, VSS and pt in NSR on monitor
[2020-02-14] VITALS (25 sets, daily range): BP systolic 109–184; BP diastolic 56–94
[2020-02-14 05:11] LABS: ALANINE AMINOTRANSFERASE 13 IU/L (0-55); ALBUMIN 3.2 g/dL (3.5-5.0); ALBUMIN/GLOBULIN RATIO 0.9 (0.8-2.0); ALKALINE PHOSPHATASE 61 IU/L (40-150); ANION GAP 13.5 mmol/L (8-16); BLOOD UREA NITROGEN 12 mg/dL (7-26); BUN/CREATININE RATIO 16 (6-25); CALCIUM 8.8 mg/dL (8.4-10.2); CARBON DIOXIDE 24 mmol/L (22-29); CHLORIDE 100 mmol/L (98-107); CREATININE, SERUM 0.73 mg/dL (0.72-1.25); EST GLOMERULAR FILTRATION RATE > 60 ML/MIN (60-); GLUCOSE 98 mg/dL (74-118); POTASSIUM 4.5 mmol/L (3.5-5.1); SODIUM 133 mmol/L (136-145)
[2020-02-14] MEDS: DEMECLOCYCLINE HCL 300 MG TAB PO SCH (05:27)
--- NOTE | 2020-02-14 06:12 | NUR ---
IM- progress note O/N see below ROS: unreliable v/s revd PE tired appearing anicteric ns1s2 REDUCED BS soft nt nd no e/t skin dry flat affect awake; oriented to self houser labs/meds revd A/P Multifocal PNA- IV abx; f/u COVID testing. Hyponatremia- check urine/serum osm and urine Na. fluid restrict JOSEY/AMS- due to hyponatremia Pulmonary fibrosis- chronic; supportive Prop: scd; pepcid dipso: f/u Na. cct>35mins 10-19 Na improving; f/u urine Osm; cct>35mins 10-20 SIADH; Urine Na is >40, serum Osm <280. F/U urine Osm. Serum Na better; d/c planning; JESSICA POOLE MD, PHD.
[2020-02-14] MEDS: BUDESONIDE/FORMOTEROL 160/4.5MCG INHALER INH SCH ×2 (07:13→19:45)
[2020-02-14 07:30] LABS: BASOPHILS # (AUTO) 0.1 (0.0-0.1); BASOPHILS % 1.1 % (0.0-1.0); EOSINOPHILS # (AUTO) 0.3 (0.0-0.4); EOSINOPHILS % 3.9 % (0.0-6.0); HEMATOCRIT 36.3 % (38.2-49.6); HEMOGLOBIN 12.5 g/dL (14.0-18.0); LYMPHOCYTES # (AUTO) 1.1 (1.0-3.2); LYMPHOCYTES % 15.2 % (18.0-39.1); MEAN CORPUSCULAR HEMOGLOBIN 31.3 pg (28-32); MEAN CORPUSCULAR HGB CONC 34.4 g/dL (31-35); MONOCYTES # (AUTO) 0.8 (0.2-0.8); MONOCYTES % 10.3 % (4.4-11.3); NEUTROPHILS # (AUTO) 5.2 (2.1-6.9); NEUTROPHILS % 69.2 % (38.7-80.0); PLATELET COUNT 282 x10e3/uL (140-360); RED BLOOD COUNT 3.99 x10e6/uL (4.3-5.7); RED CELL DISTRIBUTION WIDTH 13.2 % (11.7-14.4)
--- NOTE | 2020-02-14 08:14 | NUR ---
Dr Trivedi has been in with pt. Discussed care. Dr Trivedi has determined to remove pt from restraints. Will monitor.
[2020-02-14] MEDS: NIFEDIPINE CR 30 MG TAB PO SCH (08:56)
--- NOTE | 2020-02-14 11:14 | NUR ---
CALLED AND SPOKE WITH CHUCK ABOUT SNF, SHE STATES HER COUSIN WORKS AT [facility] AND PREFERS TO GO THERE. EDUCATED ABOUT IMM FILED CHOICE AND IMM IN CHART.
--- NOTE | 2020-02-14 11:21 | Progress Note ---
DATE: SUBJECTIVE: The patient is less confused. He does have a Barnett catheter in because of urinary retention. PHYSICAL EXAMINATION: VITAL SIGNS: Blood pressure is 149/73, saturation is 98% and the pulse is 87. HEENT: Shows no facial swelling or erythema. LYMPHATIC: Shows no submandibular, cervical, or supraclavicular adenopathy. CARDIAC: Reveals a regular rate and rhythm with normal S1 and S2. LUNGS: Auscultation of lungs reveals decreased breath sounds at the bases. There is no wheezing. ABDOMEN: Soft and nontender. There is no rebound or guarding. EXTREMITIES: Shows no leg or calf tenderness. LABORATORY DATA: White blood cell count is 7.5, hemoglobin is 12.5, and platelet count is 282. The BUN to creatinine ratio is 12 to 0.73. Other electrolytes are within normal limits. IMPRESSION: 1. Metabolic encephalopathy. 2. Urinary retention. 3. Chronic pulmonary fibrosis. 4. Hyponatremia and syndrome of inappropriate antidiuretic hormone secretion. PLAN: 1. Complete antibiotics. 2. Continue fluid restriction. 3. Arrange for disposition. 4. The patient will return to SNF with Barnett catheter in place. Navi Houser MD [facility]/MODL /[id number]
--- NOTE | 2020-02-14 11:37 | NUR ---
FAXED CLINICALS TO [facility]
--- NOTE | 2020-02-14 13:03 | NUR ---
RECEIVED CALL FROM [facility], THEY ARE NOT IN NETWORK. CALLED CHUCK LET HER KNOW AND ASKED WHERE TO TRY NEXT, SHE AGREED TO [facility] AND IF NOT THEM THEN [facility].
[2020-02-14] MEDS: CEFTRIAXONE SOD 1 GM/NS 50 ML 50 ML IV SCH (13:40)
--- NOTE | 2020-02-14 15:17 | NUR ---
[facility] CALLED AND ABLE TO TAKE PT, HAVE SUBMITTED TO INSURANCE AND PENDING AUTH
[2020-02-14] MEDS: ENOXAPARIN SOD INJ 40 MG/0.4 ML SYR SC SCH (17:02)
[2020-02-14] MEDS: ACETAMINOPHEN 325 MG TAB PO PRN (17:02)
[2020-02-15] VITALS (25 sets, daily range): BP systolic 102–173; BP diastolic 50–104
[2020-02-15] MEDS: DEMECLOCYCLINE HCL 300 MG TAB PO SCH (05:59)
--- NOTE | 2020-02-15 06:19 | NUR ---
IM- progress note O/N see below ROS: unreliable v/s revd PE tired appearing anicteric ns1s2 REDUCED BS soft nt nd no e/t skin dry flat affect awake; oriented to self houser labs/meds revd A/P Multifocal PNA- IV abx; f/u COVID testing. Hyponatremia- check urine/serum osm and urine Na. fluid restrict JOSEY/AMS- due to hyponatremia Pulmonary fibrosis- chronic; supportive Prop: scd; pepcid dipso: f/u Na. cct>35mins 10-19 Na improving; f/u urine Osm; cct>35mins 10-20 SIADH; Urine Na is >40, serum Osm <280. F/U urine Osm. Serum Na better; d/c planning; 02-14 ready for SNF JESSICA POOLE MD, PHD.
[2020-02-15] MEDS: BUDESONIDE/FORMOTEROL 160/4.5MCG INHALER INH SCH ×2 (07:12→19:15)
[2020-02-15] MEDS: NIFEDIPINE CR 30 MG TAB PO SCH (07:44)
--- NOTE | 2020-02-15 09:57 | NUR ---
CALLED FACILITY STILL PENDING AUTH
--- NOTE | 2020-02-15 12:12 | Progress Note ---
DATE: SUBJECTIVE: The patient is less confused today. He is not having fevers. PHYSICAL EXAMINATION: VITAL SIGNS: The blood pressure is 125/69, saturation is 100%, and the pulse is 80. HEENT: Shows no facial swelling or erythema. LYMPHATIC: Shows no submandibular, cervical, or supraclavicular adenopathy. CARDIAC: Reveals a regular rate and rhythm with normal S1 and S2. LUNGS: Auscultation of lungs reveals clear breath sounds bilaterally. There is no wheezing. ABDOMEN: Soft and nontender. There is no rebound or guarding. EXTREMITIES: Show no leg edema or calf tenderness. LABORATORY DATA: White blood cell count is 7.5 and hemoglobin is 12.5. The platelet count is 282. The BUN to creatinine ratio is 12 to 0.73. The other electrolytes are within normal limits. The albumin is 3.2. IMPRESSION: 1. Metabolic encephalopathy. 2. History of vascular dementia. 3. Urinary retention. 4. Pulmonary fibrosis. 5. Syndrome of inappropriate antidiuretic hormone. PLAN: 1. The patient to have MRI today. 2. Neurology evaluation. 3. Continue fluid restriction and treatment for SIADH. Navi Houser MD [facility]/MODL /[id number]
[2020-02-15] MEDS: CEFTRIAXONE SOD 1 GM/NS 50 ML 50 ML IV SCH (12:45)
--- NOTE | 2020-02-15 15:39 | NUR ---
Gal Salinas with [facility], they are still pending auth from insurance.
[2020-02-15] MEDS: ENOXAPARIN SOD INJ 40 MG/0.4 ML SYR SC SCH (17:30)
[2020-02-15] MEDS: ACETAMINOPHEN 325 MG TAB PO PRN (17:31)
--- NOTE | 2020-02-15 17:48 | Diagnostic Imaging Report ---
MRI BRAIN WO HISTORY: Altered mental status COMPARISON: Head CT 02/11/2020 and 01/18/2020 TECHNIQUE: Sagittal T2, axial T2, multiplanar 3-D T1, axial T2/FLAIR, axial gradient echo (or susceptibility weighted), and axial diffusion weighted MR images of the brain were obtained without contrast. Motion artifacts obscure some details. DISCUSSION: Scalp/bone marrow: Unremarkable. Brain sulci: Prominent. Ventricles: Compensatory dilatation. Extra-axial spaces: No masses or fluid collections. Parenchyma: Scattered T2/FLAIR hyperintense foci throughout the supratentorial white matter are likely chronic microvascular ischemic changes. Old lacunar infarcts are seen in the left thalamus and bilateral putamen. Otherwise, no mass, hemorrhage, or acute vascular insults. 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 Sellar/Suprasellar region: No abnormalities. Craniocervical junction: No abnormalities. Incidental findings: Bilateral ocular lens replacement. IMPRESSION: 1. No acute intracranial abnormalities. 2. Moderate supratentorial chronic microvascular ischemic change with scattered old lacunar infarcts. 3. Mild generalized cerebral volume loss. Signed by: Dr. Eh Da Silva M.D. on 02/15/2020 5:45 PM
[2020-02-15] MEDS: TAMSULOSIN HCL 0.4 MG CAP PO SCH (17:56)
[2020-02-15] MEDS: AMPICILLIN SOD 1 GM/NS 50ML 50 ML IV SCH (18:00)
[2020-02-15] MEDS ORDERED: SODIUM CHLORIDE 0.9% 1000ML 1,000 ML ONE (18:03)
[2020-02-16] VITALS (16 sets, daily range): BP systolic 130–172; BP diastolic 66–89
[2020-02-16] MEDS: AMPICILLIN SOD 1 GM/NS 50ML 50 ML IV SCH ×5 (05:36→23:00)
[2020-02-16] MEDS: DEMECLOCYCLINE HCL 300 MG TAB PO SCH (05:36)
--- NOTE | 2020-02-16 06:52 | NUR ---
IM- progress note O/N see below ROS: unreliable v/s revd PE tired appearing anicteric ns1s2 REDUCED BS soft nt nd no e/t skin dry flat affect awake; oriented to self houser labs/meds revd A/P Multifocal PNA- IV abx; f/u COVID testing. Hyponatremia- check urine/serum osm and urine Na. fluid restrict JOSEY/AMS- due to hyponatremia Pulmonary fibrosis- chronic; supportive Prop: scd; pepcid dipso: f/u Na. cct>35mins 10-19 Na improving; f/u urine Osm; cct>35mins 10-20 SIADH; Urine Na is >40, serum Osm <280. F/U urine Osm. Serum Na better; d/c planning; 02-14 ready for SNF 02-15 Enterococcal UTI- sensitive to ampicillin; JOSEY/AMS due to UTI. MRI brain negative; control BP; SNF pending; JESSICA POOLE MD, PHD.
[2020-02-16 06:58] LABS: BASOPHILS # (AUTO) 0.1 (0.0-0.1); BASOPHILS % 1.5 % (0.0-1.0); EOSINOPHILS # (AUTO) 0.4 (0.0-0.4); EOSINOPHILS % 5.1 % (0.0-6.0); HEMOGLOBIN 12.6 g/dL (14.0-18.0); LYMPHOCYTES # (AUTO) 1.2 (1.0-3.2); LYMPHOCYTES % 17.4 % (18.0-39.1); MEAN CORPUSCULAR HEMOGLOBIN 31.5 pg (28-32); MEAN CORPUSCULAR HGB CONC 34.1 g/dL (31-35); MEAN CORPUSCULAR VOLUME 92.5 fL (81-99); MONOCYTES # (AUTO) 0.9 (0.2-0.8); MONOCYTES % 12.9 % (4.4-11.3); NEUTROPHILS # (AUTO) 4.4 (2.1-6.9); NEUTROPHILS % 62.5 % (38.7-80.0); PLATELET COUNT 312 x10e3/uL (140-360); RED CELL DISTRIBUTION WIDTH 13.1 % (11.7-14.4)
[2020-02-16 07:04] LABS: ANION GAP 14.1 mmol/L (8-16); BLOOD UREA NITROGEN 17 mg/dL (7-26); BUN/CREATININE RATIO 26 (6-25); CALCIUM 9.1 mg/dL (8.4-10.2); CARBON DIOXIDE 23 mmol/L (22-29); CHLORIDE 105 mmol/L (98-107); CREATININE, SERUM 0.66 mg/dL (0.72-1.25); EST GLOMERULAR FILTRATION RATE > 60 ML/MIN (60-); GLUCOSE 100 mg/dL (74-118); POTASSIUM 4.1 mmol/L (3.5-5.1); SODIUM 138 mmol/L (136-145)
[2020-02-16] MEDS: BUDESONIDE/FORMOTEROL 160/4.5MCG INHALER INH SCH ×2 (09:00→20:30)
[2020-02-16] MEDS ORDERED: NIFEDIPINE CR 30 MG TAB PO SCH (09:00)
--- NOTE | 2020-02-16 11:51 | Progress Note ---
DATE: SUBJECTIVE: The patient's urine is growing out Enterococcus. He was switched to ampicillin yesterday. He still has some confusion. His Barnett catheter was removed yesterday. PHYSICAL EXAMINATION: VITAL SIGNS: The blood pressure is 172/85, saturation is 98%, and respiratory rate is 17. The pulse is 105. HEENT: Shows no facial swelling or erythema. LYMPHATIC: Shows no submandibular, cervical, or supraclavicular adenopathy. CARDIAC: Reveals regular rate and rhythm with normal S1, S2. LUNGS: Auscultation of lungs reveals rhonchorous breath sounds bilaterally. There is no wheezing. ABDOMEN: Soft and nontender. There is no rebound or guarding. EXTREMITIES: Shows no leg edema or calf tenderness. LABORATORY DATA: CRV-ls-dfcejnztps ratio is normal. Other electrolytes are within normal limits. The white blood cell count is 7.1, hemoglobin is 12.6, and the platelet count is 312. RADIOGRAPHIC DATA: MRI of the brain shows moderate supratentorial chronic microvascular ischemic changes with scattered old lacunar infarcts. IMPRESSION: 1. Metabolic encephalopathy. 2. Underlying vascular dementia. 3. Urinary retention. 4. Pulmonary fibrosis. 5. Urinary tract infection with Enterococcus. PLAN: 1. Continue current inhalers. 2. Wean off oxygen. 3. Complete p.o. course of ampicillin for urinary tract infection. 4. Possible transfer to care home facility. Navi Houser MD [facility]/MODL /[id number]
--- NOTE | 2020-02-16 12:58 | NUR ---
Received patient from ICU. Respiration even and unlabored without SOB. Denies pain at this time. Patient is advised to use the call light if assistance needed. Call light in reach. Patient orientated to room and how to use the bed and call light.
[2020-02-16] MEDS ORDERED: ONDANSETRON HCL 4 MG ORAL DISINTEGRATING TAB PO PRN (15:45)
[2020-02-16] MEDS: ENOXAPARIN SOD INJ 40 MG/0.4 ML SYR SC SCH (17:49)
--- NOTE | 2020-02-16 19:39 | NUR ---
Received change of shift report from AM nurse. Walking rounds completed.
[2020-02-16] MEDS: TAMSULOSIN HCL 0.4 MG CAP PO SCH (21:00)
--- NOTE | 2020-02-16 22:33 | Consultation ---
DATE OF CONSULTATION: 02/16/2020 Neurology Consultation REASON FOR CONSULTATION: Delirium and hyponatremia. HISTORY OF PRESENT ILLNESS: Mr. Juarez is a 74-year-old male with hyponatremia, confusion, delirium and sundowning, has pneumonia noted on x-ray. The patient is too confused to provide history, past medical history, review of systems, and social history. PHYSICAL EXAMINATION: VITAL SIGNS: Show that he is afebrile. His blood pressure is 136/72, heart rate is 88 and regular. GENERAL: The patient is awake, responsive, follows commands. Speaks Greek. HEENT: Extraocular muscles intact. Face symmetric. Tongue is midline. No nuchal rigidity is noted. Trachea is midline. CARDIOVASCULAR: Regular rate and rhythm. PULMONARY: Clear to auscultation with some rhonchi in the upper lobes bilaterally. ABDOMEN: Soft and nontender. NEUROLOGIC: Moves bilateral upper and lower extremities 4/5. Reflexes symmetric. There is no ataxia or tremors. ASSESSMENT AND PLAN: The patient comes to my attention for recurrent delirium and confusion, likely he has underlying dementia and needs to be evaluated with no evidence of acute stroke. Recommendations include treat underlying metabolic response and EEG will be reviewed, which was done. No need for an MRI at this time. PT, OT, rehab evaluations are recommended. Overall, no evidence of acute neurological issues secondary to delirium, secondary to hyponatremia, metabolic etiology. I would recommend evaluation by Nephrology or Endocrine. However, once the patient is stable, can do outpatient dementia workup as well. MD ROSINA NAVARRO/MARITAL /[id number]
--- NOTE | 2020-02-16 23:18 | Electroencephalogram ---
DATE OF STUDY: REQUESTING PHYSICIAN: STUDY: 30-minute EEG. INDICATION FOR PROCEDURE: EEG done to evaluate for delirium EEG DATA: EEG is recorded on 10-20 international electrode placement system with bipolar and transverse montages. EEG data shows diffuse slow waves, theta frequency about 5-7 Hz No acute is noted. EEG is reactive to stimulation and eye opening and closure. Posterior dominant rhythm is poorly formed, but notable 7 x 10 seconds. Overall, this EEG is abnormal level 2 for moderate to severe diffuse encephalopathy without evidence of epilepsy or seizure activity. MD ROSINA NAVARRO/MODL /[id number]
--- NOTE | 2020-02-17 | NUR ---
Patient up ambulating in room. Patient AAOx2-3 with periods of confusion. Denies pain at this time. Continue monitor.
[2020-02-17 01:43] VITALS: BP 155/70
[2020-02-17 04:34] VITALS: BP 159/76
[2020-02-17] MEDS: DEMECLOCYCLINE HCL 300 MG TAB PO SCH (05:28)
[2020-02-17] MEDS: AMPICILLIN SOD 1 GM/NS 50ML 50 ML IV SCH ×2 (05:28→12:16)
--- NOTE | 2020-02-17 05:36 | NUR ---
Patient resting quitly at this time. Continue monitor.
[2020-02-17] MEDS: BUDESONIDE/FORMOTEROL 160/4.5MCG INHALER INH SCH (07:00)
--- NOTE | 2020-02-17 07:05 | NUR ---
IM- progress note O/N see below ROS: unreliable v/s revd PE tired appearing anicteric [id number] REDUCED BS soft nt nd no e/t skin dry flat affect awake; oriented to self houser labs/meds revd A/P Multifocal PNA- IV abx; f/u COVID testing. Hyponatremia- check urine/serum osm and urine Na. fluid restrict JOSEY/AMS- due to hyponatremia Pulmonary fibrosis- chronic; supportive Prop: scd; pepcid dipso: f/u Na. cct>35mins 10- Na improving; f/u urine Osm; cct>35mins 10- SIADH; Urine Na is >40, serum Osm <280. F/U urine Osm. Serum Na better; d/c planning; 02-14 ready for SNF 02-15 Enterococcal UTI- sensitive to ampicillin; JOSEY/AMS due to UTI. MRI brain negative; control BP; SNF pending; 02-16 control BP; d/c planning to SNF. d/c when approved. JESSICA POOLE MD, PHD.
[2020-02-17] MEDS ORDERED: METOPROLOL TARTRATE 25 MG TAB PO SCH (07:30)
[2020-02-17 08:00] VITALS: BP 164/78
[2020-02-17 08:50] VITALS: BP 164/78
[2020-02-17] MEDS ORDERED: NIFEDIPINE CR 30 MG TAB PO SCH (09:00)
--- NOTE | 2020-02-17 09:07 | NUR ---
awake 99 92 159/76 eomi perrl no nuchal rigidity rrr mild rhonchi abd soft speech fluent- [place] moves all 4 ext 4/5 reflexes 1/4 no ataxia a/p delirium due to infectious etiology, no encephalitis or meningitis suspected imaging reasurring tx underlying hyponatremia outpt eval for dementia when patient clinically at baseline
--- NOTE | 2020-02-17 09:45 | NUR ---
CALLED FACILITY, STILL PENDING INSURANCE
--- NOTE | 2020-02-17 09:51 | NUR ---
FAXED UPDATES TO FACILITY
[2020-02-17 12:00] VITALS: BP 159/85
--- NOTE | 2020-02-17 12:25 | NUR ---
patient up in recliner, Alert with no distress, tolerated lunch. Call light in reach
--- NOTE | 2020-02-17 14:50 | NUR ---
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
[2020-02-17 16:09] VITALS: BP 142/77
[2020-02-17] MEDS ORDERED: NIFEDIPINE ER30 M1 PO (17:02)
[2020-02-17] MEDS ORDERED: RISPERDAL0.5 MG PO (17:02)
[2020-02-17] MEDS ORDERED: ACETAMINOPHEN325 M1 PO (17:02)
[2020-02-17] MEDS ORDERED: FLOMAX0.4 MG PO (17:02)
[2020-02-17] MEDS ORDERED: LOPRESSOR25 MG PO (17:02)
[2020-02-17] MEDS ORDERED: Demeclocycline Hcl PO (17:02)
[2020-02-17] MEDS ORDERED: COLACE100 MG PO (17:02)
--- NOTE | 2020-02-17 17:16 | NUR ---
D/C Summary Principal dx: Multifocal PNA- IV abx; f/u COVID testing. Hyponatremia- check urine/serum osm and urine Na. fluid restrict JOSEY/AMS- due to hyponatremia Pulmonary fibrosis- chronic; supportive SIADH Enterococcal UTI Secondary dx: Prop: scd; pepcid dipso: f/u Na. cct>35mins 10-19 Na improving; f/u urine Osm; cct>35mins 10-20 SIADH; Urine Na is >40, serum Osm <280. F/U urine Osm. Serum Na better; d/c planning; 02-14 ready for SNF 02-15 Enterococcal UTI- sensitive to ampicillin; JOSEY/AMS due to UTI. MRI brain negative; control BP; SNF pending; 02-16 control BP; d/c planning to SNF. d/c when approved. d/c to SNF stable f/u pcp 1 week d/c>35mins JESSICA POOLE MD, PHD
--- NOTE | 2020-02-17 17:22 | NUR ---
report called to Aziza Soto RN in [facility], patient sitting up in recliner, IV canula removed with tip intact, no ss of infiltration noted. notified family , Dr Trivedi finalized discharge medications
--- NOTE | 2020-02-17 18:56 | NUR ---
[facility] to [facility], Alert with no distress, all belongings with patient
== END 2020-02-17 18:56 | DRG 193 ==
LOC: ER 20:53 → ERHOLD 22:28 → ICU 02-12 00:23 → MED/SURG2 02-16 13:11
PROVIDERS: ADMIT Internal Medicine; ATTEND Internal Medicine
DX: J18.9 Pneumonia, unspecified organism (principal); G93.41 Metabolic encephalopathy; E22.2 Syndrome of inappropriate secretion of antidiuretic hormone; N39.0 Urinary tract infection, site not specified; J84.10 Pulmonary fibrosis, unspecified; I10 Essential (primary) hypertension; E78.5 Hyperlipidemia, unspecified; R53.1 Weakness; D50.0 Iron deficiency anemia secondary to blood loss (chronic); R33.9 Retention of urine, unspecified; B95.2 Enterococcus as the cause of diseases classified elsewhere; Z11.59 Encounter for screening for other viral diseases
CPT/HCPCS: 36415; 70450; 70551; 71045; 80048; 80053; 81001; 82550; 82553; 82570; 82947; 83935; 84295; 84300; 84484; 84520; 85025; 87086; 87186; 93005; 94664; 95812; 96360; 97139; 99285; J0290; J0360; J0696; J1650; J3486; J7030; J7050

== ENCOUNTER 2023-10-07 13:11 | Inpatient (IN) | payer MEDICARE, MEDICAID ==
[~2023-10-07] VITALS: Ht 170.2 cm; Wt 71.7 kg
[2023-10-07 13:11] VITALS: TEMP 97.8
[~2023-10-07 13:11] MED LIST changes: +ACETAMINOPHEN325 M1 PO; +COLACE100 MG PO; +Demeclocycline Hcl PO; +FLOMAX0.4 MG PO; +LOPRESSOR25 MG PO; +NIFEDIPINE ER30 M1 PO; +RISPERDAL0.5 MG PO
[2023-10-07 14:19] LABS: BASOPHILS % 0.3 % (0.0-1.0); EOSINOPHILS % 0.2 % (0.0-6.0); HEMATOCRIT 32.1 % (38.2-49.6); HEMOGLOBIN 11.6 g/dL (14.0-18.0); LYMPHOCYTES # (AUTO) 0.6 (1.0-3.2); LYMPHOCYTES % 9.8 % (18.0-39.1); MEAN CORPUSCULAR HEMOGLOBIN 32.3 pg (28-32); MEAN CORPUSCULAR HGB CONC 36.1 g/dL (31-35); MEAN CORPUSCULAR VOLUME 89.4 fL (81-99); MONOCYTES # (AUTO) 0.4 (0.2-0.8); MONOCYTES % 6.6 % (4.4-11.3); NEUTROPHILS # (AUTO) 5.2 (2.1-6.9); NEUTROPHILS % 82.6 % (38.7-80.0); PLATELET COUNT 201 x10e3/uL (140-360); RED BLOOD COUNT 3.59 x10e6/uL (4.3-5.7); RED CELL DISTRIBUTION WIDTH 12.5 % (11.7-14.4); WHITE BLOOD COUNT 6.34 x10e3/uL (4.8-10.8)
[2023-10-07 14:28] LABS: BILIRUBIN,URINE NEGATIVE (NEGATIVE); CLARITY,URINE CLEAR (CLEAR); COLOR,URINE YELLOW (YELLOW); GLUCOSE, URINE NEGATIVE (NEGATIVE); KETONES,URINE NEGATIVE (NEGATIVE); LEUKOCYTE ESTERASE ,URINE NEGATIVE (NEGATIVE); NITRITE,URINE NEGATIVE (NEGATIVE); PH,URINE 6.5 (5 - 7); PROTEIN,URINE DIPSTICK TRACE (NEGATIVE); URINE UROBILINOGEN 0.2 mg/dL (0.2 - 1)
[2023-10-07 14:34] LABS: BACTERIA,URINE FEW /HPF; EPITHELIAL CELLS,URINE FEW /LPF; MUCUS,URINE MANY (RARE); RBC,URINE 0-5 /HPF (0-5); WBC,URINE (MAN) 0-5 /HPF (0-5)
[2023-10-07 14:36] LABS: INR 0.97; PROTHROMBIN TIME 13.6 seconds (11.9-14.5)
[2023-10-07 14:37] LABS: PARTIAL THROMBOPLASTIN TIME 29.4 seconds (23.8-35.5)
[2023-10-07 14:48] LABS: ALBUMIN 3.6 g/dL (3.5-5.0); ALBUMIN/GLOBULIN RATIO 1.1 (0.8-2.0); BILIRUBIN,TOTAL 0.3 mg/dL (0.2-1.2); CREATININE, SERUM 0.7 mg/dL (0.72-1.25); MAGNESIUM 1.8 MG/DL (1.3-2.1); TOTAL PROTEIN 6.8 g/dL (6.5-8.1)
[2023-10-07 14:50] LABS: ANION GAP 10.2 mmol/L (8-16); CALCIUM 8.9 mg/dL (8.0-10.3); POTASSIUM 4.2 mmol/L (3.0-5.1)
[2023-10-07 15:07] LABS: THYROID STIMULATING HORMONE 0.302 uIU/mL (0.350-4.940); TROPONIN I 0.004 ng/mL (0-0.300)
[2023-10-07] MEDS ORDERED: ONDANSETRON HCL INJ 2MG/ML 2ML 2 MG/ML VIAL IV PRN (16:15)
[2023-10-07 16:58] LABS: BLOOD UREA NITROGEN 9 mg/dL (7-26); GLUCOSE 114 mg/dL (74-118)
[2023-10-07] MEDS: FAMOTIDINE 20 MG/2 ML VIAL IV SCH (17:35)
[2023-10-07 18:00] VITALS: PULSE 59; RESP 16
[2023-10-07] MEDS ORDERED: ATORVASTATIN CA40 MG PO (20:20)
[2023-10-07] MEDS ORDERED: IBUPROFEN800 MG PO (20:20)
[2023-10-07] MEDS ORDERED: AMLODIPINE BESY10 MG PO (20:20)
[2023-10-07] MEDS ORDERED: PREDNISONE20 MG PO (20:20)
[2023-10-07] MEDS ORDERED: LISINOPRIL40 MG PO (20:20)
[2023-10-07] MEDS ORDERED: AMOX TR-K CLV1 EAC2 PO (20:20)
[2023-10-07] MEDS ORDERED: SILODOSIN8 MG PO (20:20)
[2023-10-07] MEDS ORDERED: CARBAMAZEPINE200 MG PO (20:20)
[2023-10-07] MEDS ORDERED: METOPROLOL SUCC25 MG PO (20:20)
[2023-10-07] MEDS ORDERED: MEMANTINE HCL10 MG PO (20:20)
[2023-10-07] MEDS ORDERED: ASPIRIN81 MG PO (20:20)
[2023-10-07] MEDS ORDERED: AZITHROMYCIN250 MG PO (20:20)
[2023-10-07] MEDS ORDERED: DONEPEZIL HCL10 MG PO (20:20)
[2023-10-07 21:00] VITALS: BP 129/84; PULSE 79; RESP 18; TEMP 97.8; O2SAT 100
[2023-10-08] MEDS: ZIPRASIDONE 20 MG VIAL IM PRN (00:31)
[2023-10-08] MEDS: RISPERIDONE 0.5 MG TAB PO PRN (02:37)
[2023-10-08 05:12] LABS: OSMOLALITY,SERUM 249 mOsm/kg (278-305); SODIUM 124 mmol/L (136-145)
[2023-10-08 05:57] LABS: BASOPHILS # (AUTO) 0.1 (0.0-0.1); BASOPHILS % 1.2 % (0.0-1.0); EOSINOPHILS # (AUTO) 0.1 (0.0-0.4); EOSINOPHILS % 1.2 % (0.0-6.0); HEMATOCRIT 35.1 % (38.2-49.6); HEMOGLOBIN 12.2 g/dL (14.0-18.0); LYMPHOCYTES # (AUTO) 1.8 (1.0-3.2); LYMPHOCYTES % 27.4 % (18.0-39.1); MEAN CORPUSCULAR HEMOGLOBIN 31.6 pg (28-32); MEAN CORPUSCULAR HGB CONC 34.8 g/dL (31-35); MEAN CORPUSCULAR VOLUME 90.9 fL (81-99); MONOCYTES # (AUTO) 0.9 (0.2-0.8); MONOCYTES % 13.4 % (4.4-11.3); NEUTROPHILS # (AUTO) 3.7 (2.1-6.9); NEUTROPHILS % 56.5 % (38.7-80.0); PLATELET COUNT 215 x10e3/uL (140-360); RED BLOOD COUNT 3.86 x10e6/uL (4.3-5.7); RED CELL DISTRIBUTION WIDTH 12.5 % (11.7-14.4); WHITE BLOOD COUNT 6.49 x10e3/uL (4.8-10.8)
[2023-10-08] MEDS ORDERED: ACETAMINOPHEN 325 MG TAB PO PRN (06:00)
[2023-10-08] MEDS ORDERED: RISPERIDONE 0.5 MG TAB PO PRN (06:00)
[2023-10-08 06:28] LABS: TROPONIN I 0.001 ng/mL (0-0.300)
[2023-10-08 06:31] LABS: ALBUMIN 3.7 g/dL (3.5-5.0); ALBUMIN/GLOBULIN RATIO 1.2 (0.8-2.0); BILIRUBIN,TOTAL 0.3 mg/dL (0.2-1.2); CHOL/HDL RATIO 1.8 (3.9-4.7); CREATININE, SERUM 0.66 mg/dL (0.72-1.25); TOTAL PROTEIN 6.9 g/dL (6.5-8.1)
[2023-10-08 09:05] VITALS: BP 156/78; PULSE 73; RESP 18; TEMP 98.6; O2SAT 100
[2023-10-08 09:15] VITALS: BP 156/78; PULSE 73; RESP 18; TEMP 98.6; O2SAT 100
[2023-10-08] MEDS: PREDNISONE 20 MG TAB PO SCH (10:34)
[2023-10-08] MEDS: CARBAMAZEPINE 200 MG TAB PO SCH (10:34)
[2023-10-08] MEDS: DOCUSATE SODIUM 100 MG CAP PO SCH (10:34)
[2023-10-08] MEDS: ATORVASTATIN 40 MG TAB PO SCH (10:34)
[2023-10-08] MEDS: ASPIRIN 81 MG CHEW TAB PO SCH (10:35)
[2023-10-08] MEDS: METOPROLOL SUCCINATE 25 MG TAB XL PO SCH (10:35)
[2023-10-08 14:54] LABS: CALCIUM 8.8 mg/dL (8.4-10.2)
[2023-10-08 15:18] LABS: TROPONIN I 0.003 ng/mL (0-0.300)
[2023-10-08 20:34] VITALS: BP 102/60; PULSE 73; RESP 18; TEMP 97.8; O2SAT 98
[2023-10-08] MEDS: AMLODIPINE BESYLATE 10 MG TAB PO SCH (21:00)
[2023-10-09 04:00] VITALS: BP 166/70; PULSE 59; RESP 20; TEMP 98.3; O2SAT 99
[2023-10-09 08:00] VITALS: BP 175/84; PULSE 79; RESP 15; TEMP 97.9; O2SAT 99
[2023-10-09] MEDS: SODIUM CHLORIDE 0.9% 250ML 250 ML ONE (08:18)
[2023-10-09 08:55] VITALS: BP 155/64; PULSE 63; RESP 15; TEMP 97.9; O2SAT 99
[2023-10-09] MEDS ORDERED: ONDANSETRON HCL 4 MG ORAL DISINTEGRATING TAB PO PRN (09:00)
[2023-10-09 11:42] VITALS: BP 112/59; PULSE 63; RESP 16; TEMP 98.4; O2SAT 100
[2023-10-09 15:41] VITALS: BP 126/65; PULSE 58; RESP 18; TEMP 98.3; O2SAT 100
[2023-10-09 20:00] VITALS: BP 156/88; PULSE 81; RESP 18; TEMP 98.2; O2SAT 99
[2023-10-10 04:00] VITALS: BP 183/65; PULSE 86; RESP 18; TEMP 98.1; O2SAT 96
[2023-10-10 12:58] VITALS: BP 126/56; PULSE 72; RESP 20; TEMP 98; O2SAT 100
[2023-10-10] MEDS ORDERED: CEFDINIR300 MG PO (16:30)
[2023-10-10 16:35] VITALS: BP 131/63; PULSE 67; RESP 20; TEMP 98.2; O2SAT 100
[2023-10-10 16:59] LABS: BASOPHILS # (AUTO) 0.1 (0.0-0.1); BASOPHILS % 1.3 % (0.0-1.0); EOSINOPHILS % 0.4 % (0.0-6.0); HEMATOCRIT 34.7 % (38.2-49.6); HEMOGLOBIN 12.4 g/dL (14.0-18.0); LYMPHOCYTES % 17.1 % (18.0-39.1); MEAN CORPUSCULAR HEMOGLOBIN 32.2 pg (28-32); MEAN CORPUSCULAR HGB CONC 35.7 g/dL (31-35); MEAN CORPUSCULAR VOLUME 90.1 fL (81-99); MONOCYTES # (AUTO) 0.5 (0.2-0.8); MONOCYTES % 8.3 % (4.4-11.3); NEUTROPHILS % 72.5 % (38.7-80.0); PLATELET COUNT 218 x10e3/uL (140-360); RED BLOOD COUNT 3.85 x10e6/uL (4.3-5.7); RED CELL DISTRIBUTION WIDTH 12.7 % (11.7-14.4); WHITE BLOOD COUNT 5.56 x10e3/uL (4.8-10.8)
[2023-10-10 17:17] LABS: ANION GAP 15.6 mmol/L (8-16); CREATININE, SERUM 0.77 mg/dL (0.72-1.25); POTASSIUM 4.6 mmol/L (3.5-5.1)
[2023-10-10] MEDS: AZITHROMYCIN 250 MG TAB PO SCH (17:22)
[2023-10-10] MEDS ORDERED: LASIX20 MG PO (18:53)
== END 2023-10-10 19:30 | disposition home or self-care (01) | DRG 177 ==
LOC: ER 13:22 → ERHOLD 16:18 → MED/SURG 20:03
PROVIDERS: ADMIT Internal Medicine; ATTEND Internal Medicine
DX: J69.0 Pneumonitis due to inhalation of food and vomit (principal); I50.33 Acute on chronic diastolic (congestive) heart failure; E87.1 Hypo-osmolality and hyponatremia; F03.911 Unspecified dementia, unspecified severity, with agitation; F05 Delirium due to known physiological condition; I11.0 Hypertensive heart disease with heart failure; I44.0 Atrioventricular block, first degree; R00.1 Bradycardia, unspecified; E78.5 Hyperlipidemia, unspecified; E87.8 Other disorders of electrolyte and fluid balance, not elsewhere classified; Z11.52 Encounter for screening for COVID-19; W18.39XA Other fall on same level, initial encounter; Y92.009 Unspecified place in unspecified non-institutional (private) residence as the place of occurrence of the external cause; Z79.899 Other long term (current) drug therapy; Z79.82 Long term (current) use of aspirin
CPT/HCPCS: 36415; 70450; 71045; 72125; 80048; 80053; 80061; 81001; 82550; 82947; 83735; 83880; 83935; 84295; 84300; 84443; 84484; 84520; 85025; 85610; 85730; 87040; 87086; 87400; 93005; 93306; 99252; 99284; J0696; J3486; J7050; J7512; U0002

== ENCOUNTER 2025-01-29 20:15 | Inpatient (IN) | payer MEDICARE ==
[~2025-01-29] VITALS: Ht 170.2 cm; Wt 71.7 kg
[~2025-01-29 20:15] MED LIST changes: +AMLODIPINE BESY10 MG PO; +AMOX TR-K CLV1 EAC2 PO; +ASPIRIN81 MG PO; +ATORVASTATIN CA40 MG PO; +AZITHROMYCIN250 MG PO; +CARBAMAZEPINE200 MG PO; +CEFDINIR300 MG PO; +DONEPEZIL HCL10 MG PO; +IBUPROFEN800 MG PO; +LASIX20 MG PO; +LISINOPRIL40 MG PO; +MEMANTINE HCL10 MG PO; +METOPROLOL SUCC25 MG PO; +PREDNISONE20 MG PO; +SILODOSIN8 MG PO
[2025-01-29 21:02] LABS: BASOPHILS % 1.1 % (0.0-1.0); EOSINOPHILS % 0.4 % (0.0-6.0); LYMPHOCYTES % 17.2 % (18.0-39.1); MONOCYTES % 13.3 % (4.4-11.3); NEUTROPHILS % 67.7 % (38.7-80.0); RED CELL DISTRIBUTION WIDTH 13.2 % (11.7-14.4)
[2025-01-29] MEDS: SODIUM CHLORIDE 0.9% 1000ML 1,000 ML IV STA (21:18)
[2025-01-29] MEDS: ACETAMINOPHEN 325 MG TAB PO STA (21:18)
[2025-01-29 21:20] LABS: EST GLOMERULAR FILTRATION RATE 89.0 ML/MIN (>=60)
[2025-01-29 21:25] LABS: CORONAVIRUS COVID-19 AG POSITIVE (NEGATIVE)
[2025-01-29 22:45] VITALS: PULSE 92; RESP 20; O2SAT 100
[2025-01-29 22:47] VITALS: PULSE 92; RESP 18; TEMP 98.9
[2025-01-29 23:30] VITALS: BP 128/97; PULSE 78; RESP 20; TEMP 98.3; O2SAT 100
[2025-01-30] VITALS (9 sets, daily range): BP systolic 140–172; BP diastolic 71–82; PULSE 72–95; RESP 16–20; TEMP 98–99.7; O2SAT 97–100
[2025-01-30] MEDS: SODIUM CHLORIDE 0.9% 1000ML 1,000 ML IV SCH (00:39)
[2025-01-30] MEDS ORDERED: NEURONTIN100 MG PO (00:44)
[2025-01-30] MEDS ORDERED: vitamin d PO (00:44)
[2025-01-30 05:53] LABS: BASOPHILS % 0.9 % (0.0-1.0); EOSINOPHILS % 1.7 % (0.0-6.0); LYMPHOCYTES % 19.2 % (18.0-39.1); MONOCYTES % 16.8 % (4.4-11.3); NEUTROPHILS % 60.9 % (38.7-80.0); RED CELL DISTRIBUTION WIDTH 13.3 % (11.7-14.4)
[2025-01-30 06:27] LABS: EST GLOMERULAR FILTRATION RATE 93.0 ML/MIN (>=60)
[2025-01-30] MEDS: BENZONATATE 100 MG CAP PO PRN (20:35)
[2025-01-30] MEDS: ACETAMINOPHEN 325 MG TAB PO PRN (20:35)
[2025-01-31] VITALS (8 sets, daily range): BP systolic 126–175; BP diastolic 61–82; PULSE 68–81; RESP 18–20; TEMP 97.4–99.1; O2SAT 97–100
[2025-01-31 05:46] LABS: BASOPHILS % 1.0 % (0.0-1.0); EOSINOPHILS % 1.8 % (0.0-6.0); LYMPHOCYTES % 21.6 % (18.0-39.1); MONOCYTES % 15.3 % (4.4-11.3); NEUTROPHILS % 59.8 % (38.7-80.0); RED CELL DISTRIBUTION WIDTH 13.1 % (11.7-14.4)
[2025-01-31 06:27] LABS: EST GLOMERULAR FILTRATION RATE 91.0 ML/MIN (>=60)
[2025-01-31] MEDS ORDERED: DOCUSATE SODIUM 100 MG CAP PO PRN (13:30)
[2025-01-31] MEDS: MEMANTINE 10 MG TAB PO SCH (17:39)
[2025-01-31] MEDS: DONEPEZIL HCL 5 MG TAB PO SCH (20:50)
[2025-01-31] MEDS: GABAPENTIN 100 MG CAP PO SCH (20:50)
[2025-01-31] MEDS: ATORVASTATIN 40 MG TAB PO SCH (20:50)
[2025-01-31] MEDS: AMLODIPINE BESYLATE 10 MG TAB PO SCH (20:51)
[2025-02-01] VITALS (8 sets, daily range): BP systolic 136–170; BP diastolic 72–83; PULSE 69–87; RESP 18–20; TEMP 97.7–98.7; O2SAT 98–100
[2025-02-01] MEDS: ASPIRIN 81 MG CHEW TAB PO SCH (08:54)
[2025-02-01] MEDS: LISINOPRIL 20 MG TAB PO SCH (08:54)
[2025-02-01] MEDS: METOPROLOL SUCCINATE 25 MG TAB XL PO SCH (08:55)
[2025-02-02 13:13] VITALS: BP 143/74; PULSE 86; RESP 18; TEMP 96; O2SAT 97
[2025-02-02 15:00] VITALS: BP 145/83; PULSE 86; RESP 18; TEMP 96; O2SAT 96
[2025-02-02 15:48] VITALS: BP 169/71; PULSE 70; RESP 17; TEMP 97.7; O2SAT 100
== END 2025-02-02 16:43 | disposition home or self-care (01) | DRG 177 ==
LOC: ER 20:20 → ERHOLD 22:11 → MED/SURG2 23:19
PROVIDERS: ADMIT Internal Medicine; ATTEND Internal Medicine
DX: U07.1 COVID-19 (principal); G93.41 Metabolic encephalopathy; E87.1 Hypo-osmolality and hyponatremia; J84.10 Pulmonary fibrosis, unspecified; R53.1 Weakness; I10 Essential (primary) hypertension; F03.90 Unspecified dementia, unspecified severity, without behavioral disturbance, psychotic disturbance, mood disturbance, and anxiety; D64.9 Anemia, unspecified; Z79.82 Long term (current) use of aspirin; Z79.52 Long term (current) use of systemic steroids
CPT/HCPCS: 36415; 71045; 80048; 80053; 82550; 82948; 83605; 83690; 83880; 84484; 85025; 87040; 87086; 87186; 93005; 94799; 99284; J2543; J7030